=== PATIENT | female | born 1980 | race Caucasian/White ===

== ENCOUNTER 2020-04-22 16:31 | Outpatient (REF) | payer MEDICAID, SELFPAY ==
--- NOTE | 2020-04-22 15:20 | PAPFT_PTH ---
PATIENT: Mj Turner LOC: [facility] U#:[id number] AGE/SX: 39/F ROOM: RE04/22/[address]: Marline Fortune V : 1980 BED: DIS: 04/22/2020 SPEC #: [id number] RECD: 04/23/20 12:59 STATUS: HAMLET REAnne Marie #: [id number] CHRISTIANO: 04/22/20 15:[address]: Marline Fortune V DEPT: [facility] Cytology RECD BY: Chiquis Lemon Tissues: 1 - CX/ENDOCX FOR PAP SMEARS Procedures: PAP THIN PREP/UVM Screening HPV DNA PROBE Comments: [id number]
== END 2020-04-22 16:32 | disposition home or self-care (01) ==
LOC: NCHCN 16:31
PROVIDERS: PCP Family Medicine; Visit Provider Family Medicine
DX: Z12.4 Encounter for screening for malignant neoplasm of cervix (principal); Z11.51 Encounter for screening for human papillomavirus (HPV)
CPT/HCPCS: 88142; 87624

== ENCOUNTER 2020-08-03 11:28 | Outpatient (CLI) | payer MEDICAID, SELFPAY ==
--- NOTE | 2020-08-03 | DI.RAD_ITS ---
Exam(s) XR CERVICAL SPINE COMP 4-5V EXAM: XR CERVICAL SPINE COMP 4-5V CLINICAL HISTORY: NECK PAIN, M54.2. TECHNIQUE: 2D digital imaging was performed. COMPARISON: No exams were available for comparison FINDINGS: BONES: No fracture or destructive lesion. Vertebral bodies are unremarkable. There is no significant neural foraminal narrowing. DISKS: Intervertebral disc spaces are maintained. There are small endplate osteophytes projecting an teriorly at C5 through C7. There are mild facet joint degenerative changes. ALIGNMENT: Cervical spinal alignment is within normal limits. The odontoid and atlantoaxial articulat ions are normal. SOFT TISSUE: Normal. The lung apices are clear. IMPRESSION: Mild degenerative disc changes at C5-6 and C6-7. Mild facet degenerative changes. DATA REPOSITORY: RADIATION DOSE DELIVERED:
--- NOTE | 2020-08-03 | DI.RAD_ITS ---
Exam(s) XR THORACIC SPINE COMPLETE EXAM: XR THORACIC SPINE COMPLETE CLINICAL HISTORY: ACUTE BACK PAIN, M54.89. TECHNIQUE: 2D digital imaging was performed. COMPARISON: MR MRI - THORACIC SPINE WO CONT from 01/08/2015 MR MRI - THORACIC SPINE WO CONT from 01/08/2015 FINDINGS: BONES: There is no fracture or destructive lesion. The vertebral bodies and posterior elements are un remarkable. No visible scoliosis. DISKS:Alignment is within normal limits. Interverebral disc spaces are maintained. There are small an teriorly projecting endplate osteophytes. SOFT TISSUE: Visualized lungs are clear. The heart size is normal. IMPRESSION: Mild degenerative disc changes. DATA REPOSITORY: RADIATION DOSE DELIVERED:
== END 2020-08-03 11:48 ==
PROVIDERS: PCP Family Medicine; Visit Provider Family Medicine
DX: M54.6 Pain in thoracic spine (principal); M54.2 Cervicalgia; M50.322 Other cervical disc degeneration at C5-C6 level; M50.323 Other cervical disc degeneration at C6-C7 level; M51.34 Other intervertebral disc degeneration, thoracic region
CPT/HCPCS: 72050; 72072

== ENCOUNTER 2020-08-20 11:00 | Outpatient (CLI) | payer MEDICAID, SELFPAY ==
--- NOTE | 2020-08-20 | DI.RAD_ITS ---
Exam(s) XR FOOT LT COMPLETE EXAM: XR FOOT LT COMPLETE CLINICAL HISTORY: GREAT TOE PAIN, M79.676. TECHNIQUE: 2D digital imaging was performed. COMPARISON: No exams were available for comparison FINDINGS: BONES: No acute fracture is present. No bony destructive lesion is seen. JOINTS: No dislocation present. SOFT TISSUE: Normal. IMPRESSION: Unremarkable radiographs of the left foot. DATA REPOSITORY: RADIATION DOSE DELIVERED:
== END 2020-08-20 11:20 ==
PROVIDERS: PCP Family Medicine; Visit Provider Physician Assistant Medical
DX: M79.675 Pain in left toe(s) (principal); M79.672 Pain in left foot
CPT/HCPCS: 73630

== ENCOUNTER 2020-11-12 16:07 | Outpatient (REF) | payer MEDICAID, SELFPAY ==
[2020-11-12 20:58] LABS: Bilirubin Negative (Negative); Blood Small (Negative); Clarity Clear (Clear); Glucose Negative (Negative); Ketones Negative (Negative); Leukocyte Esterase Negative (Negative); Nitrite Negative (Negative); Specific Gravity 1.015 (1.005-1.025); Urobilinogen 0.2 EU/dL (Up TO 0.2)
[2020-11-12 21:10] LABS: Bacteria Negative HPF (Negative); C & S Indicated? No; Casts Negative LPF (Negative); Crystals Negative HPF (Negative); Epithelial Cells Few HPF (Negative); Mucus Negative (Negative)
[2020-11-12 21:24] LABS: Anion Gap 8.6 mmol/L (3-11); BUN 9 mg/dL (7-18); CO2 26.4 mmol/L (21.0-32.0); CREATININE 0.8 mg/dL (0.55-1.02); Calcium 9.2 mg/dL (8.5-10.1); Chloride 104 mmol/L (98-107); Glucose 80 mg/dL (74-106); Potassium 4.1 mmol/L (3.5-5.1); Sodium 139 mmol/L (136-145)
== END 2020-11-12 16:08 | disposition home or self-care (01) ==
LOC: NCHCN 16:07
PROVIDERS: PCP Family Medicine; Visit Provider Family Medicine
DX: R30.0 Dysuria (principal); R10.9 Unspecified abdominal pain
CPT/HCPCS: 80048; 81003; 81015

== ENCOUNTER 2020-11-29 14:14 | Outpatient (REF) | payer OTHER, MEDICAID, SELFPAY ==
[2020-11-29 20:50] LABS: Abs Immature Grans 0.02 10^3/uL (0.0-0.06); Absolute Basophil Count 0.08 10^3/uL (0.0-0.2); Absolute Eosinophil Count 0.26 10^3/uL (0.0-0.7); Absolute Monocyte Count 0.53 10^3/uL (0.1-0.8); Absolute Neutrophil Count 5.34 10^3/uL (1.2-6.7); Basophils % 0.9; Eosinophils % 2.9; HCT 40.9 % (36.0-46.0); HGB 13.5 g/dL (11.2-15.7); Immature Grans % 0.2; Lymphocytes % 29.4; Neutrophils % 60.6; Nucleated RBC 0 %; Platelet Count 288 10^3/uL (130-400); RBC 4.35 10^6/uL (3.93-5.22); RDW 12.8 % (11.7-14.6); RDW-SD 44.4 fL; WBC 8.83 10^3/uL (4.4-10.8)
[2020-11-29 21:17] LABS: Anion Gap 10.1 mmol/L (3-11); BUN 7 mg/dL (7-18); CO2 26.9 mmol/L (21.0-32.0); CREATININE 0.8 mg/dL (0.55-1.02); Calcium 8.8 mg/dL (8.5-10.1); Chloride 103 mmol/L (98-107); Glucose 74 mg/dL (74-106); Potassium 4.1 mmol/L (3.5-5.1); Sodium 140 mmol/L (136-145)
[2020-11-30 12:33] LABS: ALT 29 U/L (14-59); AST 15 U/L (15-37)
[2020-12-01 13:34] LABS: COVID-19 RT-PCR UVMMC Result Negative (Negative)
== END 2020-11-29 14:15 | disposition home or self-care (01) ==
LOC: NCHCN 14:14
PROVIDERS: PCP Family Medicine; Visit Provider Nurse Practitioner Family
DX: Z20.822 Contact with and (suspected) exposure to COVID-19 (principal); R05 Cough; R06.02 Shortness of breath
CPT/HCPCS: 80048; U0003; 84450; 84460; 85025

== ENCOUNTER → 2021-08-31 01:41 | Outpatient (CLI) | payer MEDICAID, SELFPAY ==
--- NOTE | 2021-08-31 | DI.US_ITS ---
Exam(s) US THYROID EXAM: US THYROID CLINICAL HISTORY: THYROID NODULE E04.1. TECHNIQUE: Ultrasound thyroid performed using standard protocol. COMPARISON: US THYROID ULTRASOUND from 10/18/2016 FINDINGS: Both thyroid lobes exhibit normal size as does the isthmus and there is homogeneous echotexture throu ghout the gland the exception of the previously described and again present nodule in the right lobe. RIGHT THYROID LOBE: Measures 1.6 cm AP x 2.4 cm wide x 4.8 cm craniocaudal Solitary nodule is as described below: Size: Measures 0.6 x 0.6 x 0.7 cm Composition: Solid-2 points Echogenicity: Hypoechoic compared to surrounding parenchyma-2 points Shape: Wider than taller-0 points Margin: Smooth- 0 points Echogenic Foci: None-0 points Total Points for this nodule: 4 ACR Ti-Rads Category: TR4. This nodule does not require biopsy as it is less than 1.5 cm size. There are no new nodules in the right lobe. ISTHMUS: Normal thickness. There are no nodules in the isthmus. LEFT THYROID LOBE: Measures 1.2 cm AP x 1.4 wide x 4.7 cm craniocaudal There are again no nodules in the left lobe. LYMPH NODES: There is no significant adenopathy. IMPRESSION: 1. Compared to the prior ultrasound examination of October 2016 there is again noted a solitary unchan ged nodule in the right lobe which remains TR4 classification and does not meet criteria for ultrasou nd-guided FNA as it measures less than 1.5 cm. 2. No new nodules in either lobe nor in the isthmus. 3. There is no significant lymphadenopathy. DATA REPOSITORY:
--- NOTE | 2021-08-31 | DI.MAMMO_ITS ---
Exam(s) MAMMO SCREENING EXAM: MAMMO SCREENING CLINICAL HISTORY: SCREENING FOR BREAST CANCER Z12.31. TECHNIQUE: Bilateral full field digital CC and MLO mammographic images were obtained with 3D tomosyn thesis and utilizing computer aided detection (CAD). COMPARISON: None. This is a baseline mammogram on this 41-year-old patient FINDINGS: There are no significant spiculated masses nor malignant appearing microcalcification groups. There is no significant architectural distortion nor skin thickening-retraction. IMPRESSION: No radiographic evidence of malignancy. BI-RADS Category 1 - Negative Breast Density - Category B - Scattered areas of fibroglandular density Breast density Category C or D implies that the patient has dense breast tissue. Dense breast tissue can make it harder to find cancer on a mammogram. Dense breast tissue is also associated with an incr eased risk of breast cancer. This information about the result of the mammogram report was provided to the patient to raise their awareness. Use this report when you speak with the patient about their risks for breast cancer, which includes their family history. At that time, you may recommend additional screening tests (Ultrasoun d or MRI) as these tests may add significant information. A negative radiographic report should not delay biopsy if a dominant or clinically suspicious mass is present. Up to ten percent of cancers are not identified on mammography. A negative report may reinforce clinical impression. Adenosis and dense breasts may obscure an underlying neoplasm. False positive reports average 6 to 10%. Patient will receive a letter notifying them of these results.
== END ==
PROVIDERS: PCP Family Medicine; Visit Provider Family Medicine
DX: E04.1 Nontoxic single thyroid nodule (principal); Z12.31 Encounter for screening mammogram for malignant neoplasm of breast; R91.8 Other nonspecific abnormal finding of lung field
CPT/HCPCS: 77063; 77067; 76536

== ENCOUNTER → 2021-09-27 01:56 | Outpatient (CLI) | payer MEDICAID, SELFPAY ==
--- NOTE | 2021-09-27 | DI.MRI_ITS ---
Exam(s) MR C SPINE T SPINE WO EXAM: MR C SPINE T SPINE WO CLINICAL HISTORY: PARESTHESIA OF ARM R20.2 T SPINE PAIN M54.6 TECHNIQUE: Multiplanar multisequence MRI of the cervical spine was performed without intravenous con trast. COMPARISON: MR MRI - CERVICAL SPINE WO CONT from 01/08/2015 MR MRI - THORACIC SPINE WO CONT from 01/08/2015 FINDINGS: MRI cervical spine: BONES: Vertebral body heights are maintained. Intervertebral disc spaces are normal. Alignment is nor mal. Bone marrow signal intensity is within normal limits. CERVICAL CORD: Craniovertebral junction is unremarkable. The cervical cord is normal size and signal intensity. SOFT TISSUES: Unremarkable. C2-3: No disc herniation or bulge is identified. No significant central spinal canal or neural forami nal stenosis. C3-4: No disc herniation or bulge is identified. No significant central spinal canal or neural forami nal stenosis C4-5: No disc herniation or bulge is identified. No significant central spinal canal or neural forami nal stenosis C5-6: There is a mild diffuse disc bulge. It is grossly unchanged compared to the prior examination. No significant central spinal canal or neural foraminal stenosis C6-7: No disc herniation or bulge is identified. No significant central spinal canal or neural forami nal stenosis C7-T1: No disc herniation or bulge is identified. No significant central spinal canal or neural yamilet inal stenosis MRI thoracic spine: BONES: Vertebral body heights are maintained. Intervertebral disc spaces are normal. Alignment is nor mal. Bone marrow signal intensity is within normal limits. Cord: The thoracic cord is normal size and signal intensity. No intrinsic cord lesion is present. Discs: No disc herniation or bulge is present in the thoracic spine. Soft tissues: Normal. IMPRESSION: 1. Stable small diffuse disc bulge at C5-C6. No central spinal canal or neural foraminal stenosis is seen in the cervical spine. 2. No central spinal canal or neural foraminal stenosis is seen in the thoracic spine. No focal disc herniation is seen in the thoracic spine. 3. Normal signal in the cervical and thoracic spinal cord. DATA REPOSITORY:
== END ==
PROVIDERS: PCP Family Medicine; Visit Provider Family Medicine
DX: M54.6 Pain in thoracic spine (principal); R20.2 Paresthesia of skin; M50.222 Other cervical disc displacement at C5-C6 level
CPT/HCPCS: 72141; 72146

== ENCOUNTER 2021-10-04 18:48 | Outpatient (REF) | payer MEDICAID, SELFPAY ==
[2021-10-04 15:39] LABS: ESR 21 mm/hr (0-20)
[2021-10-04 15:52] LABS: Hemoglobin A1C 5.3 % (<5.7)
[2021-10-04 16:07] LABS: C-Reactive Protein 0.48 mg/dL (0.0-0.3); TSH (W/Ref FT4) 1.64 uIU/mL (0.36-3.74)
[2021-10-04 16:50] LABS: Vitamin B12 657 pg/mL (193-986)
[2021-10-05 10:46] LABS: Lyme Ab w Rflx to Lyme Confirm Negative (Negative)
[2021-10-06 10:22] LABS: Anaplasma phagocytophilum Negative (Negative); B. miyamotoi PCR Negative (Negative); Babesia divergens/MO-1 Negative (Negative); Babesia duncani Negative (Negative); Babesia microti Negative (Negative); Ehrlichia chaffeensis Negative (Negative); Ehrlichia ewingii/canis Negative (Negative); Ehrlichia muris eauclairensis Negative (Negative)
== END 2021-10-04 18:49 | disposition home or self-care (01) ==
LOC: NCHCN 18:48
PROVIDERS: PCP Family Medicine; Visit Provider Family Medicine
DX: R53.83 Other fatigue (principal); R20.0 Anesthesia of skin
CPT/HCPCS: 85652; 87798; 82607; 83036; 84443; 86140; 86618

== ENCOUNTER → 2021-11-15 02:26 | Outpatient (CLI) | payer MEDICAID, SELFPAY ==
--- NOTE | 2021-11-15 | DI.RAD_ITS ---
Exam(s) XR LUMBAR SPINE COMPLETE EXAM: XR LUMBAR SPINE COMPLETE CLINICAL HISTORY: BACK PAIN, PSORIATIC ARHTIRITS TECHNIQUE: COMPARISON: No exams were available for comparison FINDINGS: Five views were obtained. The intervertebral disc spaces appear well maintained. There is no eviden ce of spondylolysis or spondylolisthesis. There are mild hypertrophic endplate and facet degenerativ e changes of the lower thoracic and lumbar spine, otherwise no bony abnormality seen. SI joints appe ar intact. IUD noted in the pelvic midline. IMPRESSION: Mild degenerative changes of the lumbar spine. No evidence of sacroiliitis by plain film criteria. RADIATION DOSE DELIVERED: Total DLP
--- NOTE | 2021-11-15 | DI.RAD_ITS ---
Exam(s) XR ARTHRITIS SERIES EXAM: XR ARTHRITIS SERIES CLINICAL HISTORY: PSORIATIC ARTHRITIS, L40.50 TECHNIQUE: COMPARISON: No exams were available for comparison FINDINGS: Two views of each hand were obtained. Cartilaginous joint spaces are well maintained. No gross soft tissue swelling. No bony abnormality seen. IMPRESSION: Normal views of both hands. RADIATION DOSE DELIVERED: Total DLP
== END ==
PROVIDERS: PCP Family Medicine; Visit Provider Family Medicine
DX: M47.816 Spondylosis without myelopathy or radiculopathy, lumbar region (principal)
CPT/HCPCS: 72110; 73120

== ENCOUNTER → 2021-12-05 02:48 | Outpatient (CLI) | payer MEDICAID, SELFPAY ==
--- NOTE | 2021-12-05 | DI.MRI_ITS ---
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 COMPARISON: No exams were available for comparison FINDINGS: No intracranial hemorrhage, mass or infarct is seen. There has been no change in the size or appeara nce of the previously noted pineal gland cyst. The ventricles are normal in size. There are no abnormal high signal lesions in the white matter. The vascular flow voids appear intact. The orbits and pituitary are unremarkable as visualized. The sinuses show minimal mucosal thickening. Small amount of mucus in the posterior left sphenoid si nus. The mastoid air cells are clear. IMPRESSION: Stable appearance of pineal gland cyst. DATA REPOSITORY:
== END ==
PROVIDERS: PCP Family Medicine; Visit Provider Family Medicine
DX: G93.0 Cerebral cysts (principal); G43.909 Migraine, unspecified, not intractable, without status migrainosus
CPT/HCPCS: 70551

== ENCOUNTER 2022-05-05 13:37 | Outpatient (REF) | payer MEDICAID, SELFPAY ==
--- NOTE | 2022-05-05 09:30 | SKI_PTH ---
PATIENT: Mj Turner LOC: [facility] U#:[id number] AGE/SX: 41/F ROOM: RE05/05/[address]: Marline Fortune V : 1980 BED: DIS: 05/05/2022 SPEC #: [id number] RECD: 05/05/22 15:02 STATUS: HAMLET REAnne Marie #: [id number] CHRISTIANO: 05/05/22 09:[address]: Marline Fortune V DEPT: Surgical Specimen RECD BY: Chiquis Lemon Tissues: 1 - SKIN BIOPSY(SHAVE/PUNCH) Procedures: SKIN LEVEL 4 SPECIAL STAIN 1 Comments: [id number]
== END 2022-05-05 13:38 | disposition home or self-care (01) ==
LOC: NCHCN 13:37
PROVIDERS: PCP Family Medicine; Visit Provider Family Medicine
DX: L57.0 Actinic keratosis (principal); L85.9 Epidermal thickening, unspecified
CPT/HCPCS: 88305; 88312

== ENCOUNTER 2022-11-23 18:48 | Outpatient (REF) | payer MEDICAID, SELFPAY | END 2022-11-23 18:49 | disposition home or self-care (01) | LOC: NCHCN 18:48 | PROVIDERS: PCP Family Medicine; Visit Provider Family Medicine | DX: J02.9 Acute pharyngitis, unspecified (principal) | CPT/HCPCS: 87070 ==

== ENCOUNTER → 2023-09-03 05:21 | Outpatient (CLI) | payer MEDICAID, SELFPAY ==
--- NOTE | 2023-09-03 | DI.MAMMO_ITS ---
Exam(s) MAMMO SCREENING EXAM: MAMMO SCREENING CLINICAL HISTORY: SCREENING, Z12.31 TECHNIQUE: Mammograms were interpreted according to the usual protocol including computer analysis w [employer] CAD system, tomosynthesis and C-view imaging. COMPARISON: 2021 FINDINGS: The breasts are composed of scattered fibroglandular densities, Breast Density category B. No suspicious masses or suspicious microcalcifications are seen. No skin thickening or abnormal axillary lymph nodes are seen. There has been no significant change from prior exams. IMPRESSION: BI-RADS Category 1, Negative mammogram Yearly screening mammography is recommended. Breast Density - Category B, scattered fibroglandular densities. A negative radiographic report should not delay biopsy if a dominant or clinically suspicious mass is present. Up to ten percent of cancers are not identified on mammography. A negative report may reinforce clinical impression. Adenosis and dense breasts may obscure an underlying neoplasm. False positive reports average 6 to 10%. Patient will receive a letter notifying them of these results.
== END ==
PROVIDERS: PCP Family Medicine; Visit Provider Family Medicine
DX: Z12.31 Encounter for screening mammogram for malignant neoplasm of breast (principal)
CPT/HCPCS: 77063; 77067

== ENCOUNTER 2024-01-10 15:11 | Outpatient (REF) | payer MEDICAID, SELFPAY ==
--- NOTE | 2024-01-10 14:15 | PAPFT_PTH ---
PATIENT: Mj Turner LOC: [facility] U#:[id number] AGE/SX: 43/F ROOM: RE01/10/[address]: Marline Fortune V : 1980 BED: DIS: 01/10/2024 SPEC #: [id number] RECD: 01/10/24 18:51 STATUS: HAMLET REQ #: [id number] CHRISTIANO: 01/10/24 14:[address]: Marline Fortune V DEPT: [facility] Cytology RECD BY: Chiquis Lemon Tissues: 1 - CX/ENDOCX FOR PAP SMEARS Procedures: PAP THIN PREP/UVM Screening HPV DNA PROBE Comments: [id number] (HPV 16 & 18/45)
--- OUTSIDE RECORDS SUMMARY | 2024-01-10 15:14 | XMS_ITS | Data Portability ---
Author Organization [facility], [facility] Address [place] [address] Care Team Providers Care Systems Trainer Name Role Phone JOVAN BINGHAM Dentist PARMJIT CHAMBERS Primary Care Provider [phone] RO RAMIREZ [employer] Stonecut[employer] REINALDO BARROSO Neurologist Assessment No assessment recorded. Plan of Treatment Reminders Order Date Submit Date Provider Last Modified By Organization Details Last Modified Time Details Appointments Procedure 30 2023 01:40P M PARMJIT CHAMBERS Not available Not available Not available Annual Wellness Exam 40 2024 02:20P M PARMJIT CHAMBERS Not available Not available Not available Lab hemoglobi n (Hb), fingersti ck, blood 2023 024 [email or web address], [address] [place] [address], [phone], 03/27/2023 16:40:56 influenza virus A + B + SARS-CoV- 2 (COVID19) Ag panel, rapid IA, upper respirato ry specimen 2023 024 [email or web address] [facility], [address] [place] [address], [phone], 11/07/2023 13:54:19 Referral None recorded. Procedures None recorded. Surgeries None recorded. Imaging MAMMO, screening , bilateral 2023 024 [email or web address] [facility], [address], [place], [address], 09/17/2023 13:27:38 Medication Orders amoxicill in 500 mg capsule 2023 024 [email or web address] [facility], [address] [place] [address], [address], 06/15/2023 13:31:49 doxycycli ne hyclate 100 mg capsule 2023 024 [email or web address] [facility], [address] [place] [address], [address], 01/10/2024 13:42:29 ketorolac 60 mg/2 mL intramusc ular solution 2023 024 Not available 11/07/2023 13:30:33 prednison e 10 mg tablet 2023 024 [facility], [address] [place] [address], [address], 10/24/2023 15:36:31 omeprazol e 20 mg capsule,d elayed release 2023 024 [facility], [address] [place] [address], [address], 06/15/2023 17:07:03 methocarb simeon 750 mg tablet 2023 024 [email or web address] [facility], [address] [place] [address], [address], 10/24/2023 17:07:46 ketorolac 60 mg/2 mL intramusc ular solution 2023 024 [email or web address] Not available 11/07/2023 13:30:33 amoxicill in 500 mg tablet 2023 024 [facility], [address] [place] [address], [address], 01/10/2024 13:42:05 azithromy sada 250 mg tablet 2023 024 [facility], [address] [place], [address], 01/10/2024 13:42:09 prednison e 20 mg tablet 2023 024 [facility], [address] [place], [address], 01/10/2024 13:42:44 Patient TargetsNo targets recorded. Patient InstructionsNo instructions recorded. Reason for Referral None Reported. Results Created Date Observation Date Name Description Value Unit Range Abnormal Flag Note LastModifiedBy Organization Detail LastModifiedTime 03/27/19 24 03/27/2023 hemog lobin (Hb), finge rstic k, blood HGB 13.4 g/dL Not Available [address], [address], 03/27/2023 12:06:52 11/07/19 24 11/07/2023 influ ayan virus A + B + SARS- CoV-2 (COVI D19) Ag panel , rapid IA, upper respi rator y speci men Influenza A negati ve Not Available [address], [address], 11/07/2023 13:53:56 11/07/19 24 11/07/2023 influ ayan virus A + B + SARS- CoV-2 (COVI D19) Ag panel , rapid IA, upper respi rator y speci men Influenza B negati ve Not Available [address], [address], 11/07/2023 13:53:56 11/07/19 24 11/07/2023 influ ayan virus A + B + SARS- CoV-2 (COVI D19) Ag panel , rapid IA, upper respi rator y speci men SARS-COV-2 negati ve Not Available [facility] [address] [facility], [place], [address], 11/07/2023 13:53:56 09/03/19 24 09/03/2023 MAMMO , scree jose, bilat eral Patien t Name: Mj Turner Unit #: [id number] Loc: DI Orderi ng Provid er: Anju Mclaughlin M.D. Accoun t #: [id number] Status : REG CLI Primar y Care Provid er: Anju Mclaughlin M.D. Date of Exam : Sex: F Admiss ion Date: : 1980 Age: 43 Exam(s ) MG MAMMO SCREEN ING EXAM: MG MAMMO SCREEN ING CLINIC AL HISTOR Y: SCREEN ING, Z12.31 TECHNI QUE: Mammog massimo were interp reted accord ing to the usual protoc ol includ ing comput er analys is with CAD system , tomosy nthesi s and C-view imagin g. COMPAR KARLI: 2021 FINDIN GS: The breast s are compos ed of scatte red fibrog landul ar densit ies, Breast Densit y catego ry B. No suspic ious masses or suspic ious microc alcifi cation s are seen. No skin thicke jose or abnorm al axilla ry lymph nodes are seen. There has been no signif icant change from prior exams. IMPRES FATIMAH: BI-RAD S Catego ry 1, Negati ve mammog ricky Yearly screen ing mammog herrera is recomm ended. Breast Densit y - Catego ry B, scatte red fibrog landul ar densit ies. A negati ve radiog raphic report should not delay biopsy if a domina nt or clinic ally suspic ious mass is presen t. Up to ten percen t of cancer s are not identi fied on mammog herrera. A negati ve report may reinfo rce clinic al impres fatimah. Adenos is and dense breast s may obscur e an underl veronica neopla sm. False positi ve report s averag e 6 to 10%. Patien t will receiv e a letter notify ing them of these result peter brenstein By: Anju Mclaughlin M.D. CC: ------ ------ ------ ------ ------ ------ ------ ------ ------ ------ ------ ------ - Dictat ed By: Adam Vergara 1554 155 Transc ribed By: Seb Warren 155 This is privil eged, confid ential inform ation intend ed only for the provid er named. Any use or distri bution by any person other than this provid er is strict ly prohib ited. If you receiv e this report in error, please notify us immvibhai edyta at and return the origin al report to us at the addres s above. Thank- you. [email or web address] [facility] [address], [place], [address] 11/01/2023 15:39:09 12/03/19 24 11/15/2021 imagi ng/di agnos tic resul t No observ ation record ed. Not Available 12/02 09:30:43 12/03/19 24 09/27/2021 imagi ng/di agnos tic resul t No observ ation record ed. Not Available 12/02 09:30:44 12/03/19 24 08/31/2021 US, thyro id No observ ation record ed. Not Available 12/02 09:30:47 12/03/19 24 08/20/2020 XR, foot No observ ation record ed. Not Available 12/02 09:30:49 12/03/19 24 08/03/2020 XR, cervi omar spine No observ ation record ed. Not Available 12/02 09:30:50 12/03/19 24 08/03/2020 imagi ng/di agnos tic resul t No observ ation record ed. Not Available 12/02 09:30:51 12/03/19 24 05/02/2019 imagi ng/di agnos tic resul t No observ ation record ed. Not Available 12/02 09:30:53 12/03/19 24 05/02/2019 imagi ng/di agnos tic resul t No observ ation record ed. Not Available 12/02 09:30:54 12/03/19 24 08/31/2021 MAMMO , scree jose No observ ation record ed. Not Available 12/02 09:31:08 12/03/19 24 11/15/2021 XR, lumba r spine No observ ation record ed. Not Available 12/02 09:31:10 12/03/19 24 12/05/2021 MRI, brain + brain stem No observ ation record ed. Not Available 12/02 09:31:12 Result Notes Documentation Provider Name and Address Organization Details Recorded Time Mammo, Screening, Bilateral : Patient Name: Mj Turner Unit #: [id number] Loc: DI Ordering Provider: Parmjit Chambers M.D. Account #: [id number] Status: REG [facility] Primary Care Provider: Parmjit Chambers M.D. Date of Exam : 09/03/23 Sex: F Admission Date: 09/03/23 : 1980 Age: 43 Exam(s) MG MAMMO SCREENING EXAM: MG MAMMO SCREENING CLINICAL HISTORY: SCREENING, Z12.31 TECHNIQUE: Mammograms were interpreted according to the usual protocol including computer analysis with CAD system, tomosynthesis and C-view imaging. COMPARISON: 2021 FINDINGS: The breasts are composed of scattered fibroglandular densities, Breast Density category B. No suspicious masses or suspicious microcalcifications are seen. No skin thickening or abnormal axillary lymph nodes are seen. There has been no significant change from prior exams. IMPRESSION: BI-RADS Category 1, Negative mammogram Yearly screening mammography is recommended. Breast Density - Category B, scattered fibroglandular densities. A negative radiographic report should not delay biopsy if a dominant or clinically suspicious mass is present. Up to ten percent of cancers are not identified on mammography. A negative report may reinforce clinical impression. Adenosis and dense breasts may obscure an underlying neoplasm. False positive reports average 6 to 10%. Patient will receive a letter notifying them of these results. Ordered By: Parmjit Chambers M.D. CC: Dictated By: Nicki Warren M.D. 09/03/23 1554 09/03/23 1554 Transcribed By: Nicki Warren 09/03/23 1554 This is privileged, confidential information intended only for the provider named. Any use or distribution by any person other than this provider is strictly prohibited. If you receive this report in error, please notify us immediately at [phone] and return the original report to us at the address above. Thank-you. RAMON FORD [place], [place] - [facility] 11/01/2023 15:39:09 Problems Name Problem SNOMED Code Status Onset Date Resolution Date Notes Provider Name and Address Organization Details Recorded Time Human papillom a virus infectio n 877897533 Active 2008 Problem Code: B97.7; Problem Code Type: ICD-10; Not Available [facility] 3 04:42:38 Mild intermit tent asthma 141601476 Active 200404/29/19 22 - Comments only - Parmjit Chambers MD - Rare use of albutero l inhaler. Main issue is she needs to quit smoking, she not feeling ready to do that just yet Problem Code: J45.20; Problem Code Type: ICD-10; Not Available [facility] 3 04:42:38 Cholelit hiasis without obstruct ion 72810633 Active 2001 Problem Code: K80.20; Problem Code Type: ICD-10; Not Available [facility] 3 04:42:38 Cerebral cyst 07085854 Active 201404/29/19 22 - Comments only - Parmjit Chambers MD - We will consider repeat MRI for evaluati on to make sure this is not progress ing. Problem Code: G93.0; Problem Code Type: ICD-10; Not Available [facility] 3 04:42:38 Headache 85965787 Active 201411/12/19 22 - Comments only - Parmjit Chambers MD - Intermit tent, she splinted manage these reasonab ly well, using IV Imitrex for migraine or muscle relaxant for cervical kanwal related headache s. The cycloben zaprine can be sedating and she is wonderin g if there is another option. I did a prescrip tion for methocar bamol today. Problem Code: R51; Problem Code Type: ICD-10; Not Available [facility] 3 04:42:38 Concussi on with no loss of consciou sness 59149380 Active 201401/30/20 22 - Comments only - Parmjit Chambers MD - /TBI. This occurred in 2014. Since then she has had difficul ty with light sensitiv ity, headache s, suboptim al memory/w ord finding difficul ty, computat ional adroitne ss. 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 I think it is reasonab le to have her get accommod ation such that she can take a longer period of time to complete assignme nts, get the addition al help she needs with the college courses. Problem Code: S06.0x0S ; Problem Code Type: ICD-10; Not Available [facility] 3 04:42:39 Contrace ption care manageme nt Active 201410/23/19 18 - Comments only - Parmjit Chambers MD - not particul arily happy with the mirena. She will think about options (which she is aware of) and let me know if she would like a change Problem Code: Z30.9; Problem Code Type: ICD-10; Not Available [facility] 3 04:42:39 Non-toxi c uninodul ar goiter 147528550 Active 201410/21/19 17 - Comments only - Parmjit Chambers MD - due for a repeat u/s to check on stabilit y Problem Code: E04.1; Problem Code Type: ICD-10; Not Available [facility] 3 04:42:39 Posttrau matic stress disorder 02729120 Active 201510/21/19 17 - Comments only - Parmjit Chambers MD - continui ng to work with behavior al health and they both feel she is making slow progress Problem Code: F43.10; Problem Code Type: ICD-10; Not Available [facility] 3 04:42:39 Adult health examinat ion Active 201504/29/19 22 - Comments only - Parmjit Chambers MD - Up-to-da te with Pap. Not interest ed in Covid vaccinat ion nor flu vaccinat ion. Up-to-da te with TD, hep C screenin g. Encourag e smoking cessatio n. She feels she is eating fairly healthfu lly, will try and remain physical ly active. Problem Code: Z00.00; Problem Code Type: ICD-10; Not Available [facility] 3 04:42:39 Acne vulgaris 58050633 Active 201511/12/19 22 - Comments only - Parmjit Chambers MD - She did get a prescrip tion for spironol actone from dermatol ogy, I think she can hold off on filling it for now. If she does want to fill it she may call me to start at a lower dose, I will start her at 12.5 mg daily. 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 Problem Code: F06.31; Problem Code Type: ICD-10; Not Available [facility] 3 04:42:39 Enthesop athy 68150689 Completed 201709/24/2017 Problem Code: M77.9; Problem Code Type: ICD-10; Not Available [facility] 3 04:42:39 Tobacco use cessatio n educatio n Active 201705/10/19 23 - Comments only - Parmjit Chambers MD - When her stress level decrease s/brain, she might be more apt to work on quitting Problem Code: Z71.6; Problem Code Type: ICD-10; Not Available [facility] 3 04:42:40 Syncope and collapse 856330520 Active 2019 Problem Code: R55; Problem Code Type: ICD-10; Not Available [facility] 3 04:42:40 Neck pain 17480327 Active 201904/29/19 22 - Comments only - Parmjit Chambers MD - Ongoing issue related to work. Having her head looking down at the all the paperwor k she needs to get done, at the computer screen for hours on end does not help. She has a stem at home that is working fairly well and I wrote for her to be able to continue working from home as needed. Will await recommen dations from the pain clinic. Problem Code: M54.2; Problem Code Type: ICD-10; Not Available [facility] 3 04:42:40 Migraine 78923902 Active 202104/29/19 22 - Comments only - Parmjit Chambers MD - , Intermit tent. For the most part she continue s to feel that use of the Imitrex and ibuprofe n works fairly well. Problem Code: G43.909; Problem Code Type: ICD-10; Not Available [facility] 3 04:42:40 History of SARS-CoV -2 88108082985 3455753 Active 202104/29/19 22 - Comments only - Parmjit Chambers MD - Symptoma tically resolved . Problem Code: Z86.16; Problem Code Type: ICD-10; Not Available [facility] 3 04:42:40 Screenjun petersen mammogra eva Active 2021 Problem Code: Z12.31; Problem Code Type: ICD-10; Not Available [facility] 3 04:42:40 Cristhian alessandra 44194164 Active 202101/30/20 22 - Comments only - Parmjit Chamebrs MD - /4th and 5th digits/c hronic cervical kanwal. Rheumato herman thinks she may have cubital tunnel syndrome . They had set up for her to have EMG/nerv e conducti on studies done. However Mj feels she has been getting good improvem ent in symptoms with working with PT, cervical manipula tion/lanre agee. Cristhian aparicios are improvin g. She is going to hold off on the studies for now. If she does do excessiv e typing/h aving to keep her head in the position to look at the screen that will worsen symptoms . She is trying to make sure she takes frequent breaks when working on her college courses. . Problem Code: R20.2; Problem Code Type: ICD-10; Not Available [facility] 3 04:42:40 Pain in thoracic spine 281756485 Active 2021 Problem Code: M54.6; Problem Code Type: ICD-10; Not Available [facility] 3 04:42:41 Anesthes ia of skin 021144455 Active 2021 Problem Code: R20.0; Problem Code Type: ICD-10; Not Available [facility] 3 04:42:41 Fatigue 19861327 Active 202111/12/19 22 - Comments only - Parmjit Chambers MD - , Mild, long standing . Whether this is due to the chronic conditio n such as psoriati c arthriti s, related to stress is difficul t to say right now. Very mildly elevated inflamma tory markers historic ally, normal CBC, CMP, thyroid studies, B12. We will continue to monitor for now. Problem Code: R53.83; Problem Code Type: ICD-10; Not Available [facility] 3 04:42:41 Lesion of ulnar nerve 016657852 Active 2021 Problem Code: G56.20; Problem Code Type: ICD-10; Not Available [facility] 3 04:42:41 History of traumati c brain injury 05072925153 100 Active 202105/10/19 23 - Comments only - Parmjit Chambers MD - /History of recurren t headache s/cervic algia. She needs to pace herself with activiti es, with time spent on the computer . Accommod ations for her for college courses are appropri ate to give her addition al time if she needs to to complete assignme nts. Her focusing sometime s can be off related to the history of the TBI. Problem Code: Z87.820; Problem Code Type: ICD-10; Not Available [facility] 3 04:42:41 Cervical radiculo greg 55157101 Active 202209/12/19 23 - Comments only - Parmjit Chambers MD - , With fluctuat ions in intensit y. Overall she is managing it fairly well with the as needed use of methocar bamol, the soft c-collar . Doing some exercise s. Problem Code: M54.12; Problem Code Type: ICD-10; Not Available [facility] 3 04:42:41 Adjustme nt disorder 30749409 Active 202209/12/19 23 - Comments only - Parmjit Chambers MD - Supporti ve listenin g, she is thinking of getting plugged into counseli ng for herself. Her son is involved in counseli ng. Problem Code: F43.20; Problem Code Type: ICD-10; Not Available [facility] 3 04:42:41 Acute upper respirat ory infectio n 84745166 Active 2022 Problem Code: J06.9; Problem Code Type: ICD-10; Not Available [facility] 3 04:42:42 Lichen simplex chronicu s 94975344 Active 2022 Problem Code: L28.0; Problem Code Type: ICD-10; Not Available [facility] 3 04:42:42 Acute sinusiti s 72159150 Completed 202009/11/2022 Problem Code: J01.90; Problem Code Type: ICD-10; Not Available [facility] 3 04:42:42 Pain in toe 078189850 Completed 202004/29/2021 Problem Code: M79.676; Problem Code Type: ICD-10; Not Available [facility] 3 04:42:42 Fever 672112008 Completed 201906/01/2019 Problem Code: R50.9; Problem Code Type: ICD-10; Not Available [facility] 3 04:42:42 Chronic sinusiti s 79308202 Completed 201606/01/2019 Problem Code: J32.9; Problem Code Type: ICD-10; Not Available [facility] 3 04:42:42 Asthma 043000033 Completed 200412/13/2022 Not Available [facility] 3 04:42:43 Pain of left knee joint 47300271852 4107 Completed 201909/11/2022 Problem Code: M25.562; Problem Code Type: ICD-10; Not Available [facility] 3 04:42:43 Biliary calculus 437000574 Completed Not Available [facility] 3 04:42:43 Biceps tendinit is 719102741 Completed 201509/11/2022 Problem Code: M75.21; Problem Code Type: ICD-10; Not Available [facility] 3 04:42:43 Pain in thoracic spine 246049238 Completed 201909/11/2022 Problem Code: M54.89; Problem Code Type: ICD-10; Not Available [facility] 3 04:42:43 Psoriasi s 6315179 Completed 202109/11/2022 Problem Code: L40.9; Problem Code Type: ICD-10; Not Available [facility] 3 04:42:43 Candidia sis 52251220 Completed 201406/01/2019 Problem Code: B37.9; Problem Code Type: ICD-10; Not Available [facility] 3 04:42:44 Dysuria 72288182 Completed 202004/29/2021 Problem Code: R30.0; Problem Code Type: ICD-10; Not Available [facility] 3 04:42:44 Abdomina l pain 50154903 Completed 202004/29/2021 Problem Code: R10.9; Problem Code Type: ICD-10; Not Available [facility] 3 04:42:44 Nasal congesti on 05218875 Completed 202104/29/2021 Problem Code: R09.81; Problem Code Type: ICD-10; Not Available [facility] 3 04:42:44 Exposure to communic able disease Completed 202004/29/2021 Problem Code: Z20.828; Problem Code Type: ICD-10; Not Available [facility] 3 04:42:44 Pain of left wrist 44328942123 9102 Completed 201806/01/2019 Problem Code: M25.532; Problem Code Type: ICD-10; Not Available [facility] 3 04:42:45 Adjustme nt disorder with depresse d mood 93880697 Completed 201506/01/2019 Problem Code: F43.21; Problem Code Type: ICD-10; Not Available [facility] 3 04:42:45 Venereal disease screenin g Completed 201609/11/2022 Problem Code: Z11.3; Problem Code Type: ICD-10; Not Available [facility] 3 04:42:45 Acute stress disorder 80194619 Completed 201506/01/2019 Problem Code: F43.0; Problem Code Type: ICD-10; Not Available [facility] 3 04:42:45 Uncompli cated asthma 736495996 Completed 200412/13/2022 Problem Code: J45.909; Problem Code Type: ICD-10; Not Available [facility] 3 04:42:45 Psoriati c neeturimaris s 093769190 Completed 202109/11/2022 Problem Code: L40.50; Problem Code Type: ICD-10; Not Available [facility] 3 04:42:46 Cellulit is 705185835 Completed 202004/29/2021 Problem Code: L03.90; Problem Code Type: ICD-10; Not Available [facility] 3 04:42:46 Cough 64317875 Completed 202004/29/2021 Problem Code: R05; Problem Code Type: ICD-10; Not Available [facility] 3 04:42:46 Dyspnea 441466863 Completed 202004/29/2021 Problem Code: R06.02; Problem Code Type: ICD-10; Not Available [facility] 3 04:42:46 Acute pharyngi tis 660514976 Completed 202212/14/2022 Problem Code: J02.9; Problem Code Type: ICD-10; Not Available [facility] 4 05:34:14 Pain in elbow 04071319 Active [address], [place], [address] , [facility] 4 08:03:49 Spasm 15359875 Active [address], [facility] [address] , [facility] 4 17:04:08 Notes:*Problem Name: Positiv e Hpv *ICD-10 Codes: *Problem Status: inactive *Comments: *Note Date: 11/16/2008 Problem Notes None recorded. Procedures Surgical History None recorded. Imaging Results Imaging Date Name Status LastModified by Organiz ation Details LastModified Time 09/03/2023 MAMMO, screening, bilateral completed [email or web address] [facility] [address] , [place], [address] 11/01/2023 15:39:09 11/15/2021 imaging/diagno stic result completed Information not available 12/03/2023 09:30:43 09/27/2021 imaging/diagno stic result completed Information not available 12/03/2023 09:30:44 08/31/2021 US, thyroid completed Information n ot available 12/03/2023 09:30:47 08/20/2020 XR, foot completed Information no t available 12/03/2023 09:30:49 08/03/2020 XR, cervical spine completed Information not available 12/03/2023 09:30:50 08/03/2020 imaging/diagno stic result completed Information not available 12/03/2023 09:30:51 05/02/2019 imaging/diagno stic result completed Information not available 12/03/2023 09:30:53 05/02/2019 imaging/diagno stic result completed Information not available 12/03/2023 09:30:54 08/31/2021 MAMMO, screening completed Information not available 12/03/2023 09:31:08 11/15/2021 XR, lumbar spine completed Information not available 12/03/2023 09:31:10 12/05/2021 MRI, brain + brain stem completed Information not available 12/03/2023 09:31:12 Procedure Notes None recorded. Medical Equipment None Reported. Allergies Allergen ID Allergen Name Allergen Category Reaction Reaction Severity Criticality Documentation Date Start Date Code Code System Note Provider Name and Address Organization Details Recorded Time 40898 acetamino phen / oxycodone medicatio n Not available Not available Not available 01/26/20232020 97438 3 RxNorm Aller gyCod e: '7224 94946 12'; Aller gyNam e: 'PERC OCET' ; Aller gyCon ceptT ype: 'NDC' ; Not Available [facility] 16:26:21 06573 Chantix medicatio n other severe Not available 01/26/20232011 94137 0 RxNorm went crazy Aller gyRea ction : 'went crazy '; Aller gyCod e: '5009 89474 00'; Aller gyNam e: 'ROJAS TIX'; Aller gyCon ceptT ype: 'NDC' ; Not Available [facility] 3 16:26:21 88877 Latex Exam Gloves medicatio n rash moderate Not available 01/26/20232014 rash Aller gyCod e: '08 86464 60'; Aller gyNam e: 'LATE X EXAM GLOVE S'; Aller gyCon ceptT ype: 'NDC' ; Not Available [facility] 3 16:26:21 56105 copper environme nt,medica tion rash moderate Not available 01/26/20232016 2837 RxNorm rash Aller gyCod e: '1117 310'; Aller gyNam e: 'DARY ER'; Aller gyCon ceptT ype: 'RX Norm' ; Not Available [facility] 3 16:26:22 Medications Name Sig Start Date Stop Date Status Note LastModified by Organization Details LastModified Time cyclobenz aprine 10 mg tablet 1 tablet by mouth twice a day as needed 12/08 completed Not Available Not Available Not Available amoxicill in 500 mg capsule TAKE ONE CAPSULE BY MOUTH THREE TIMES A DAY FOR 7 DAYS 06/14 completed Not Available Not Available Not Available Mirena 21 mcg/24 hr (up to 8 years) 52 mg intrauter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
--- OUTSIDE RECORDS SUMMARY | 2024-01-10 15:14 | XMS_ITS | Continuity of Care Document ---
Author Organization [facility] Address [address] [place] [address] Care Team Providers Care Roving Sizer Name Role Phone JOVAN BINGHAM Dentist PARMJIT CHAMBERS Primary Care Provider [phone] RO RAMIREZ Improvement Nurse IDA GOOD Box Folding Machine Operator REINALDO BARROSO Neurologist Assessment No assessment recorded. Plan of Treatment Reminders Order Date Submit Date Provider Last Modified By Organization Details Last Modified Time Details Appointments Procedure 30 2023 01:40P M PARMJIT CHAMBERS Not available Not available Not available Annual Wellness Exam 40 2024 02:20P M PARMJIT CHAMBERS Not available Not available Not available Lab influenza virus A + B + SARS-CoV- 2 (COVID19) Ag panel, rapid IA, upper respirato ry specimen 2023 024 [email or web address] [facility], [address] [place], [address], 11/07/2023 13:54:19 Referral None recorded. Procedures None recorded. Surgeries None recorded. Imaging None recorded. Medication Orders amoxicill in 500 mg tablet 2023 024 [facility], [address] [place], [address], 01/10/2024 13:42:05 azithromy sada 250 mg tablet 2023 024 [facility], [address] [place], [address], 01/10/2024 13:42:09 prednison e 20 mg tablet 2023 024 [facility], [address] [place], [address], 01/10/2024 13:42:44 Patient TargetsNo targets recorded. Patient InstructionsNo instructions recorded. Reason for Referral None Reported. Results Created Date Observation Date Name Description Value Unit Range Abnormal Flag Note LastModifiedBy Organization Detail LastModifiedTime 11/07/1911/07/2023 influ ayan virus A + B + SARS- CoV-2 (COVI D19) Ag panel , rapid IA, upper respi rator y speci men Influenza A negati ve Not Available [address], [address], 11/07/2023 13:53:56 11/07/19 24 11/07/2023 influ ayan virus A + B + SARS- CoV-2 (COVI D19) Ag panel , rapid IA, upper respi rator y speci men Influenza B negati ve Not Available [address], [address], 11/07/2023 13:53:56 11/07/19 24 11/07/2023 influ ayan virus A + B + SARS- CoV-2 (COVI D19) Ag panel , rapid IA, upper respi rator y speci men SARS-COV-2 negati ve Not Available [address], [address], 11/07/2023 13:53:56 12/03/19 24 11/15/2021 imagi ng/di agnos tic resul t No observ ation record ed. Not Available 12/02 09:30:43 12/03/1909/27/2021 imagi ng/di agnos tic resul t No [...] ed. Not Available 12/02 09:31:12 Result Notes None recorded. Problems Name Problem SNOMED Code Status Onset Date Resolution Date Notes Provider Name and Address Organization Details Recorded Time Human papillom a virus infectio n 347605713 Active 2008 Problem Code: B97.7; Problem Code Type: ICD-10; Not Available [facility] 3 04:42:38 Mild intermit tent asthma 070520936 Active 200404/29/19 22 - Comments only - Parmjit Chambers MD - Rare use of albutero l inhaler. Main issue is she needs to quit smoking, she not feeling ready to do that just yet Problem Code: J45.20; Problem Code Type: ICD-10; Not Available [facility] 3 04:42:38 Cholelit hiasis without obstruct ion 28804491 Active 2001 Problem Code: K80.20; Problem Code Type: ICD-10; Not Available [facility] 3 04:42:38 Cerebral cyst 70371425 Active 201404/29/19 22 - Comments only - Parmjit Chambers MD - We will consider repeat MRI for evaluati on to make sure this is not progress ing. Problem Code: G93.0; Problem Code Type: ICD-10; Not Available [facility] 3 04:42:38 Headache 07619921 Active 201411/12/19 22 - Comments only - [...] R51; Problem Code Type: ICD-10; Not Available [facility] 3 04:42:38 Concussi on with no loss of consciou sness 15120738 Active 201401/30/20 22 - Comments only - [...] ; Problem Code Type: ICD-10; Not Available [facility] 3 04:42:39 Contrace ption care manageme nt Active 201410/23/19 18 - Comments only - Parmjit Chambers MD - not particul arily happy with the mirena. She will think about options (which she is aware of) and let me know if she would like a change Problem Code: Z30.9; Problem Code Type: ICD-10; Not Available [facility] 3 04:42:39 Non-toxi c uninodul ar goiter 001609780 Active 201410/21/19 17 - Comments only - Parmjit Chambers MD - due for a repeat u/s to check on stabilit y Problem Code: E04.1; Problem Code Type: ICD-10; Not Available [facility] 3 04:42:39 Posttrau matic stress disorder 60154960 Active 201510/21/19 17 - Comments only - Parmjit Chambers MD - continui ng to work with behavior al health and they both feel she is making slow progress Problem Code: F43.10; Problem Code Type: ICD-10; Not Available [facility] 3 04:42:39 Adult health examinat ion [...] Z00.00; Problem Code Type: ICD-10; Not Available [facility] 3 04:42:39 Acne vulgaris 89918401 Active 201511/12/19 22 - Comments only - [...] L70.0; Problem Code Type: ICD-10; Not Available [facility] 3 04:42:39 Pain of left shoulder joint 50560967900 235333 Active 2015 Problem Code: M25.512; Problem Code Type: ICD-10; Not Available [facility] 3 04:42:39 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 Problem Code: F06.31; Problem Code Type: ICD-10; Not Available [facility] 3 04:42:39 Enthesop athy 86553583 Completed 201709/24/2017 Problem Code: M77.9; Problem Code Type: ICD-10; Not Available [facility] 3 04:42:39 Tobacco use cessatio n educatio n Active 201705/10/19 23 - Comments only - Parmjit Chambers MD - When her stress level decrease s/brain, she might be more apt to work on quitting Problem Code: Z71.6; Problem Code Type: ICD-10; Not Available [facility] 3 04:42:40 Syncope and collapse 593790101 Active 2019 Problem Code: R55; Problem Code Type: ICD-10; Not Available [facility] 3 04:42:40 Neck pain 46659092 Active 201904/29/19 22 - Comments only - [...] M54.2; Problem Code Type: ICD-10; Not Available [facility] 3 04:42:40 Migraine 34999902 Active 202104/29/19 22 - Comments only - Parmjit Chambers MD - , Intermit tent. For the most part she continue s to feel that use of the Imitrex and ibuprofe n works fairly well. Problem Code: G43.909; Problem Code Type: ICD-10; Not Available [facility] 3 04:42:40 History of SARS-CoV -2 54588162903 0755338 Active 202104/29/19 22 - Comments only - Parmjit Chambers MD - Symptoma tically resolved . Problem Code: Z86.16; Problem Code Type: ICD-10; Not Available [facility] 3 04:42:40 Screenin g mammogra phy Active 2021 Problem Code: Z12.31; Problem Code Type: ICD-10; Not Available [facility] 3 04:42:40 Paresthe alessandra 94856393 Active 202101/30/20 22 - Comments only - Parmjit Chambers MD - /4th and 5th digits/c hronic cervical kanwal. Rheumato logolri thinks she may have cubital tunnel syndrome . They had set up for her to have EMG/nerv e conducti on studies done. However Mj feels she has been getting good improvem ent in symptoms with working with PT, cervical manipula tion/lanre agee. Paresthe mario are improvin g. She is going to [...] R20.2; Problem Code Type: ICD-10; Not Available [facility] 3 04:42:40 Pain in thoracic spine 904912627 Active 2021 Problem Code: M54.6; Problem Code Type: ICD-10; Not Available [facility] 3 04:42:41 Anesthes ia of skin 734799031 Active 2021 Problem Code: R20.0; Problem Code Type: ICD-10; Not Available [facility] 3 04:42:41 Fatigue 45367799 Active 202111/12/19 22 - Comments only - [...] R53.83; Problem Code Type: ICD-10; Not Available [facility] 3 04:42:41 Lesion of ulnar nerve 934170142 Active 2021 Problem Code: G56.20; Problem Code Type: ICD-10; Not Available [facility] 3 04:42:41 History of traumati c brain injury 24471190862 100 Active 202105/10/19 23 - Comments only [...] Z87.820; Problem Code Type: ICD-10; Not Available [facility] 3 04:42:41 Cervical radiculo greg 64911543 Active 202209/12/19 23 - Comments only - Parmjit Chambers MD - , With fluctuat ions in intensit y. Overall she is managing it fairly well with the as needed use of methocar bamol, the soft c-collar . Doing some exercise s. Problem Code: M54.12; Problem Code Type: ICD-10; Not Available [facility] 3 04:42:41 Adjustme nt disorder 67458258 Active 202209/12/19 23 - Comments only - Parmjit Chambers MD - Supporti ve listenin g, she is thinking of getting plugged into counseli ng for herself. Her son is involved in [employer] riv[employer]. Problem Code: F43.20; Problem Code Type: ICD-10; Not Available [facility] 3 04:42:41 Acute upper respirat ory infectio n 26714268 Active 2022 Problem Code: J06.9; Problem Code Type: ICD-10; Not Available [facility] 3 04:42:42 Lichen simplex chronicu s 50072208 Active 2022 Problem Code: L28.0; Problem Code Type: ICD-10; Not Available [facility] 3 04:42:42 Acute sinusiti s 79632805 Completed 202009/11/2022 Problem Code: J01.90; Problem Code Type: ICD-10; Not Available [facility] 3 04:42:42 Pain in toe 958113374 Completed 202004/29/2021 Problem Code: M79.676; Problem Code Type: ICD-10; Not Available [facility] 3 04:42:42 Fever 435377501 Completed 201906/01/2019 Problem Code: R50.9; Problem Code Type: ICD-10; Not Available [facility] 3 04:42:42 Chronic sinusiti s 43604242 Completed 201606/01/2019 Problem Code: J32.9; Problem Code Type: ICD-10; Not Available [facility] 3 04:42:42 Asthma 198346264 Completed 200412/13/2022 Not Available [facility] 3 04:42:43 Pain of left knee joint 57259104823 4107 Completed 201909/11/2022 Problem Code: M25.562; Problem Code Type: ICD-10; Not Available [facility] 3 04:42:43 Biliary calculus 413843861 Completed Not Available [facility] 3 04:42:43 Biceps tendinit is 956955574 Completed 201509/11/2022 Problem Code: M75.21; Problem Code Type: ICD-10; Not Available [facility] 3 04:42:43 Pain in thoracic spine 706979632 Completed 201909/11/2022 Problem Code: M54.89; Problem Code Type: ICD-10; Not Available [facility] 3 04:42:43 Psoriasi s 1239866 Completed 202109/11/2022 Problem Code: L40.9; Problem Code Type: ICD-10; Not Available [facility] 3 04:42:43 Candidia sis 81613714 Completed 201406/01/2019 Problem Code: B37.9; Problem Code Type: ICD-10; Not Available [facility] 3 04:42:44 Dysuria 17196630 Completed 202004/29/2021 Problem Code: R30.0; Problem Code Type: ICD-10; Not Available [facility] 3 04:42:44 Abdomina l pain 75042999 Completed 202004/29/2021 Problem Code: R10.9; Problem Code Type: ICD-10; Not Available [facility] 3 04:42:44 Nasal congesti on 50991852 Completed 202104/29/2021 Problem Code: R09.81; Problem Code Type: ICD-10; Not Available [facility] 3 04:42:44 Exposure to communic able disease Completed 202004/29/2021 Problem Code: Z20.828; Problem Code Type: ICD-10; Not Available [facility] 3 04:42:44 Pain of left wrist 47980044402 9102 Completed 201806/01/2019 Problem Code: M25.532; Problem Code Type: ICD-10; Not Available [facility] 3 04:42:45 Adjustme nt disorder with depresse d mood 96518166 Completed 201506/01/2019 Problem Code: F43.21; Problem Code Type: ICD-10; Not Available [facility] 3 04:42:45 Venereal disease screenin g Completed 201609/11/2022 Problem Code: Z11.3; Problem Code Type: ICD-10; Not Available [facility] 3 04:42:45 Acute stress disorder 30894805 Completed 201506/01/2019 Problem Code: F43.0; Problem Code Type: ICD-10; Not Available [facility] 3 04:42:45 Uncompli cated asthma 294539882 Completed 200412/13/2022 Problem Code: J45.909; Problem Code Type: ICD-10; Not Available [facility] 3 04:42:45 Psoriati c arthriti s 408661303 Completed 202109/11/2022 Problem Code: L40.50; Problem Code Type: ICD-10; Not Available [facility] 3 04:42:46 Cellulit is 227227663 Completed 202004/29/2021 Problem Code: L03.90; Problem Code Type: ICD-10; Not Available [facility] 3 04:42:46 Cough 94919807 Completed 202004/29/2021 Problem Code: R05; Problem Code Type: ICD-10; Not Available [facility] 3 04:42:46 Dyspnea 228734524 Completed 202004/29/2021 Problem Code: R06.02; Problem Code Type: ICD-10; Not Available [facility] 3 04:42:46 Acute pharyngi tis 062861634 Completed 202212/14/2022 Problem Code: J02.9; Problem Code Type: ICD-10; Not Available [facility] 4 05:34:14 Pain in elbow 48305952 Active [address] [place], [address] , [facility]. 4 08:03:49 Spasm 37911883 Active [address] [place] [place], [address] , [facility] 4 17:04:08 Notes:*Problem Name: Positiv e Hpv *ICD-10 Codes: *Problem Status: inactive *Comments: *Note Date: 11/16/2008 Problem Notes None recorded. Medical Equipment None Reported. Allergies Allergen ID Allergen Name Allergen Category Reaction Reaction Severity Criticality Documentation Date Start Date Code Code System Note Provider Name and Address Organization Details Recorded Time 51805 acetamino phen / oxycodone medicatio n Not available Not available Not available 01/26/20232020 41360 3 RxNorm Aller gyCod e: '7224 67237 12'; Aller gyNam e: 'PERC OCET' ; Aller gyCon ceptT ype: 'NDC' ; Not Available [facility] 3 16:26:21 49075 Chantix medicatio n other severe Not available 01/26/20232011 34129 0 RxNorm went crazy Aller gyRea ction : 'went crazy '; Aller gyCod e: '5009 93949 00'; Aller gyNam e: 'ROJAS TIX'; Aller gyCon ceptT ype: 'NDC' ; Not Available [facility] 3 16:26:21 88312 Latex Exam Gloves medicatio n rash moderate Not available 01/26/20232014 rash Aller gyCod e: '0813 18443 60'; Aller gyNam e: 'LATE X EXAM GLOVE S'; Aller gyCon ceptT ype: 'NDC' ; Not Available [facility] 3 16:26:21 96383 copper environme nt,medica tion rash moderate Not available 01/26/20232016 2837 RxNorm rash Aller gyCod e: '2267 310'; Aller gyNam e: 'DARY ER'; Aller gyCon ceptT ype: 'RX Norm' ; Not Available [facility] 3 16:26:22 Medications Name Sig Start Date [...] once a day 01/27 completed Dermatol ogy [facility] Not Available Not Available Not Available amoxicill [...] Not Available Vitals Date Recorded Body height Oxygen saturation Oxygen saturation in Arterial blood by Pulse oximetry Heart rate Body temperature Systolic blood pressure Diastolic blood pressure Provider Name and Address Organization Details Last Updated DateTime 4 165.430 2 cm 98 % 98 % 80 /min 98.2 [degF] 104 mm[Hg] 64 mm[Hg] Maurisio Vigil MA [facility] 4 13:03:12 Social History Question Answer Notes LastModified by Organizat ion Details LastModified Time Tobacco Smoking Status Current Every Day Smoker Suly jones [facility] 03/27/2023 10:45:22 Would You Say That, In General, Your Health Is Good [email or web address] Information not available 06/15/2023 Women Aged 18-50 - Would You Like To Become In The Next Year? (Female Patients Only) No [email or web address] Information not available 06/15/2023 How Often Does Anyone, Including Family, Physically Hurt You? Never [email or web address] Information not available 06/15/2023 How Often Does Anyone, Including Family, Insult Or Talk Down To You? Rarely [email or web address] Information no t available 06/15/2023 How Often Does Anyone, Including Family, Threaten You With Harm? Never [email or web address] Information not available 06/15/2023 How Often Does Anyone, Including Family, Scream Or Curse At You? Sometimes [email or web address] Information not available 06/15/2023 Within The Past 12 Months, You Worried That Your Food Would Run Out Before You Got Money To Buy More. Never True [email or web address] Information n ot available 06/15/2023 Within The Past 12 Months, The Food You Bought Just Didn't Last And You Didn't Have Money To Get More. Never True [email or web address] Information n ot available 06/15/2023 How Hard Is It For You To Pay For The Very Basics Like Food, Housing, Medical Care, And Heating? Would You Say It Is: Somewhat Hard [email or web address] Information not available 06/15/2023 In The Past 12 Months, Has Lack Of Reliable Transportation Kept You From Medical Appointments, Meetings, Work Or From Getting Things Needed For Daily Living? Yes [email or web address] Information not available 06/15/2023 What Is Your Housing Situation Today? I Have Housing. [email or web address] Information not available 06/15/2023 How Often In The Past Year Have You Used Marijuana (including Smoking, Vaping, Dabbing, Or Edibles)? Never [email or web address] Information not available 06/15/2023 How Often In The Past Year Have You Used Prescription Medications That Were Not Prescribed To You? Never [email or web address] Information n ot available 06/15/2023 How Often In The Past Year Have You Taken Your Own Prescription Medication More Than The Way It Was Prescribed Or For Different Reasons Than Its Intended Purpose? Never [email or web address] Information no t available 06/15/2023 How Often In The Past Year Have You Used Other Drugs (for Example, Heroin, Cocaine, Meth, Salvia, Inhalants)? Never Information not available 06/15/2023 Have You Ever Used IV Drugs? No [email or web address] Information not available 06/15/2023 Date Of Most Recent SBINS 06/15/2023 [email or web address] Information not available 06/15/2023 What Was The Date Of Your Most Recent Tobacco Screening? 03/27/2023 [email or web address] Information not available 03/27/2023 What Is Your Current Pack Years? 20-29packyear s [email or web address] Information not available 03/27/2023 At What Age Did You Start Smoking Tobacco? 10 [email or web address] Information not available 03/27/2023 How Much Tobacco Do You Smoke? 1 PPD [email or web address] Information not available 03/27/2023 Has Tobacco Cessation Counseling Been Provided? Yes [email or web address] Information not available 03/27/2023 On What Date Was Tobacco Cessation Counseling Provided? 03/27/2023 [email or web address] Information not available 03/27/2023 How Many Years Have You Smoked Tobacco? 20 [email or web address] Information not available 03/27/2023 Do You Or Have You Ever Used Any Other Forms Of Tobacco Or Nicotine? No [email or web address] Information not available 03/27/2023 Sex: Female Functional Status None recorded. Mental Status None recorded. Family History Relationship Description Onset Age of this Age Resolved Age Notes LastModified by Organization Details LastModified Time Son Family history of acute medical disorder autoim mune disord er, causin g clots in kidney s and lungs Not available 01/26/2023 03:50:08 Mother Family history of alcoholism 44yo Not available 01/26/2023 03:50:09 Notes:*Problem: GM: Hypothyr [...] preservative free, adsorbed 11/27/2019 completed Not Available [facility] 01/26/2023 06:04:42 Tdap 10/20/2008 completed Not Available [facility] 06:04:43 Influenza, split virus, trivalent, preservative 01/20/2015 completed Not Available [facility] 01/26/2023 06:04:43 HPV9 04/22/2020 completed Not Available [facility] 06:04:43 HPV9 07/15/2020 completed Not Available [facility] 06:04:43 pneumococcal polysaccharide PPV23 11/12/2015 completed Not Available [facility] 2022 06:04:43 influenza, unspecified formulation 02/24/2011 completed Not Available [facility] 01/26/2023 06:04:43 Past Encounters Encounter ID Performer Location Encounter Start Date Encounter Closed Date Diagnosis/Indication Diagnosis SNOMED-CT Code Diagnosis ICD10 Code [id number] KENNY BLAIR PA-C [address] [address] 10/24/2023 15:16:06 10/24/2023 16:31:42 Shoulder pain 36349599 M25.260 [id number] PREM WEINSTEIN [address] [address] 11/07/2023 12:39:05 11/07/2023 13:40:40 Acute maxillary sinusitis 49073448 J01.00 Community acquired pneumonia 790808685 J18.9 Acute rukhsana c state due to acute stress reaction 184877278 F43.0 Health Concerns Section Related Observation LastModified by Organization Detai ls LastModified Time None Recorded Concern Status LastModified by Organization Details LastModified Time None Recorded Payers Encounter Date Sequence Insurance Name Policy Number Policy De Paz Covered Member ID De Paz Member ID Guarantor Name 11/07/2023 1 [facility] (MEDICAID) Mj Turner [id number] Mj Turner Notes Date Note Type Note Provider Name and Address Organization Details Recorded Time 11/07/2023 text/html HPI Notes: Kay nt with known exposure in son with [...] than respiratory symptoms as above). EWA SANTOS, [employer]SP[employer] [address], [place], [address], [facility]. 11/07/2023 13:55:41 OBGyn Episode No OBEpisode recorded.
--- OUTSIDE RECORDS SUMMARY | 2024-01-10 15:15 | XMS_ITS | Continuity of Care Document ---
Author Organization [facility] Address [address] [place] [address] Care Team Providers Care Kindergarten Tutor Name Role Phone JOVAN BINGHAM Dentist PARMJIT CHAMBERS Primary Care Provider RO RAMIREZ Psychiatric Nursing Aide IDA GOOD Canvas Repairer REINALDO BARROSO Neurologist Assessment No assessment recorded. Plan of Treatment Reminders Order Date Submit Date Provider Last Modified By Organization Details Last Modified Time Details Appointments Procedure 30 2023 01:40P M PARMJIT CHAMBERS Not available Not available Not available Annual Wellness Exam 40 2024 02:20P M PARMJIT CHAMBERS Not available Not available Not available Lab None recorded. Referral None recorded. Procedures None recorded. Surgeries None recorded. Imaging None recorded. Medication Orders methocarb simeon 750 mg tablet 2023 024 [email or web address] [facility], [address] [place], [address], 10/24/2023 17:07:46 ketorolac 60 mg/2 mL intramusc ular solution 2023 024 Not available 11/07/2023 13:30:33 Patient TargetsNo targets recorded. Patient InstructionsNo instructions recorded. Reason for Referral None Reported. Results Created Date Observation Date Name Description Value Unit Range Abnormal Flag Note LastModifiedBy Organization Detail LastModifiedTime 12/03/19 24 11/15/2021 imagi ng/di agnos tic [...] Time Human papillom a virus infectio n 979914412 Active 2008 Problem Code: B97.7; Problem Code Type: ICD-10; Not Available [facility] 3 04:42:38 Mild intermit tent asthma 040398685 Active 200404/29/19 22 - Comments only - Parmjit Chambers MD - Rare use of albutero l inhaler. Main issue is she needs to quit smoking, she not feeling ready to do that just yet Problem Code: J45.20; Problem Code Type: ICD-10; Not Available [facility] 3 04:42:38 Cholelit hiasis without obstruct ion 21875758 Active 2001 Problem Code: K80.20; Problem Code Type: ICD-10; Not Available [facility] 3 04:42:38 Cerebral cyst 33645346 Active 201404/29/19 22 - Comments only - Parmjit Chambers MD - We will consider repeat MRI for evaluati on to make sure this is not progress ing. Problem Code: G93.0; Problem Code Type: ICD-10; Not Available [facility] 3 04:42:38 Headache 45059291 Active 201411/12/19 22 - Comments only - [...] Code Type: ICD-10; Not Available [facility] 3 04:42:38 Concussi on with no loss of consciou sness 41336953 Active 201401/30/20 22 - Comments only - [...] ; Problem Code Type: ICD-10; Not Available [facility] 3 04:42:39 Contrace ption care manageme nt Active 201410/23/19 18 - Comments only - Parmjit Chambers MD - not particul arily happy with the mirena. She will think about options (which she is aware of) and let me know if she would like a change Problem Code: Z30.9; Problem Code Type: ICD-10; Not Available [facility] 3 04:42:39 Non-toxi c uninodul ar goiter 907727778 Active 201410/21/19 17 - Comments only - Parmjit Chambers MD - due for a repeat u/s to check on stabilit y Problem Code: E04.1; Problem Code Type: ICD-10; Not Available [facility] 3 04:42:39 Posttrau matic stress disorder 56015390 Active 201510/21/19 17 - Comments only - Parmjit Chambers MD - continui ng to work with behavior al health and they both feel she is making slow progress Problem Code: F43.10; Problem Code Type: ICD-10; Not Available [facility] 3 04:42:39 Adult health examinat ion [...] Z00.00; Problem Code Type: ICD-10; Not Available [facility] 3 04:42:39 Acne vulgaris 11120767 Active 201511/12/19 22 - Comments only - Parmjit Chambers MD - She did get a prescrip tion for spironol actone from dermatol [facility], I think she can hold off on filling it for now. If she does want to fill it she may call me to start at a lower dose, I will start her at 12.5 mg daily. 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 Problem Code: F06.31; Problem Code Type: ICD-10; Not Available [facility] 3 04:42:39 Enthesop athy 79953721 Completed 201709/24/2017 Problem Code: M77.9; Problem Code Type: ICD-10; Not Available [facility] 3 04:42:39 Tobacco use cessatio n educatio n Active 201705/10/19 23 - Comments only - Parmjit Chambers MD - When her stress level decrease s/brain, she might be more apt to work on quitting Problem Code: Z71.6; Problem Code Type: ICD-10; Not Available [facility] 3 04:42:40 Syncope and collapse 420351562 Active 2019 Problem Code: R55; Problem Code Type: ICD-10; Not Available [facility] 3 04:42:40 Neck pain 95740074 Active 201904/29/19 22 - Comments only - [...] M54.2; Problem Code Type: ICD-10; Not Available [facility] 3 04:42:40 Migraine 13955593 Active 202104/29/19 22 - Comments only - Parmjit Chambers MD - , Intermit tent. For the most part she continue s to feel that use of the Imitrex and ibuprofe n works fairly well. Problem Code: G43.909; Problem Code Type: ICD-10; Not Available [facility] 3 04:42:40 History of SARS-CoV -2 [id number] 5187706 Active 202104/29/19 22 - Comments only - Parmjit Chambers MD - Symptoma tically resolved . Problem Code: Z86.16; Problem Code Type: ICD-10; Not Available [facility] 3 04:42:40 Screenin g mammogra phy Active 2021 Problem Code: Z12.31; Problem Code Type: ICD-10; Not Available [facility] 3 04:42:40 Paresthe alessandra 69954830 Active 202101/30/20 22 - Comments only - [...] R20.2; Problem Code Type: ICD-10; Not Available [facility] 3 04:42:40 Pain in thoracic spine 524876214 Active 2021 Problem Code: M54.6; Problem Code Type: ICD-10; Not Available [facility] 3 04:42:41 Anesthes ia of skin 292450715 Active 2021 Problem Code: R20.0; Problem Code Type: ICD-10; Not Available [facility] 3 04:42:41 Fatigue 08070114 Active 202111/12/19 22 - Comments only - [...] R53.83; Problem Code Type: ICD-10; Not Available [facility] 3 04:42:41 Lesion of ulnar nerve 691976506 Active 2021 Problem Code: G56.20; Problem Code Type: ICD-10; Not Available [facility] 3 04:42:41 History of traumati c brain injury 37325500281 100 Active 202105/10/19 23 - Comments only [...] Z87.820; Problem Code Type: ICD-10; Not Available [facility] 3 04:42:41 Cervical radiculo greg 22777778 Active 202209/12/19 23 - Comments only - Parmjit Chambers MD - , With fluctuat ions in intensit y. Overall she is managing it fairly well with the as needed use of methocar bamol, the soft c-collar . Doing some exercise s. Problem Code: M54.12; Problem Code Type: ICD-10; Not Available [facility] 3 04:42:41 Adjustme nt disorder 66277307 Active 202209/12/19 23 - Comments only - Parmjit Chambers MD - Branden petersen, she is thinking of getting plugged into counseli ng for herself. Her son is involved in counseli ng. Problem Code: F43.20; Problem Code Type: ICD-10; Not Available [facility] 3 04:42:41 Acute upper respirat ory infectio n 36350572 Active 2022 Problem Code: J06.9; Problem Code Type: ICD-10; Not Available [facility] 3 04:42:42 Lichen simplex chronicu s 23858798 Active 2022 Problem Code: L28.0; Problem Code Type: ICD-10; Not Available [facility] 3 04:42:42 Acute sinusiti s 91648004 Completed 202009/11/2022 Problem Code: J01.90; Problem Code Type: ICD-10; Not Available [facility] 3 04:42:42 Pain in toe 880702614 Completed 202004/29/2021 Problem Code: M79.676; Problem Code Type: ICD-10; Not Available [facility] 3 04:42:42 Fever 112494029 Completed 201906/01/2019 Problem Code: R50.9; Problem Code Type: ICD-10; Not Available [facility] 3 04:42:42 Chronic sinusiti s 09982381 Completed 201606/01/2019 Problem Code: J32.9; Problem Code Type: ICD-10; Not Available [facility] 3 04:42:42 Asthma 994926449 Completed 200412/13/2022 Not Available [facility] 3 04:42:43 Pain of left knee joint 28873271083 4107 Completed 201909/11/2022 Problem Code: M25.562; Problem Code Type: ICD-10; Not Available [facility] 3 04:42:43 Biliary calculus 800651336 Completed Not Available [facility] 3 04:42:43 Biceps tendinit is 659863334 Completed 201509/11/2022 Problem Code: M75.21; Problem Code Type: ICD-10; Not Available [facility] 3 04:42:43 Pain in thoracic spine 801422318 Completed 201909/11/2022 Problem Code: M54.89; Problem Code Type: ICD-10; Not Available [facility] 3 04:42:43 Psoriasi s 3643266 Completed 202109/11/2022 Problem Code: L40.9; Problem Code Type: ICD-10; Not Available [facility] 3 04:42:43 Candidia sis 67367272 Completed 201406/01/2019 Problem Code: B37.9; Problem Code Type: ICD-10; Not Available [facility] 3 04:42:44 Dysuria 61679464 Completed 202004/29/2021 Problem Code: R30.0; Problem Code Type: ICD-10; Not Available [facility] 3 04:42:44 Abdomina l pain 58930711 Completed 202004/29/2021 Problem Code: R10.9; Problem Code Type: ICD-10; Not Available [facility] 3 04:42:44 Nasal congesti on 71453416 Completed 202104/29/2021 Problem Code: R09.81; Problem Code Type: ICD-10; Not Available [facility] 3 04:42:44 Exposure to communic able disease Completed 202004/29/2021 Problem Code: Z20.828; Problem Code Type: ICD-10; Not Available [facility] 3 04:42:44 Pain of left wrist 65313826086 9102 Completed 201806/01/2019 Problem Code: M25.532; Problem Code Type: ICD-10; Not Available [facility] 3 04:42:45 Adjustme nt disorder with depresse d mood 41710129 Completed 201506/01/2019 Problem Code: F43.21; Problem Code Type: ICD-10; Not Available [facility] 3 04:42:45 Venereal disease screenin g Completed 201609/11/2022 Problem Code: Z11.3; Problem Code Type: ICD-10; Not Available [facility] 3 04:42:45 Acute stress disorder 34746055 Completed 201506/01/2019 Problem Code: F43.0; Problem Code Type: ICD-10; Not Available [facility] 3 04:42:45 Uncompli cated asthma 067283556 Completed 200412/13/2022 Problem Code: J45.909; Problem Code Type: ICD-10; Not Available [facility] 3 04:42:45 Psoriati c arthriti s 157997696 Completed 202109/11/2022 Problem Code: L40.50; Problem Code Type: ICD-10; Not Available [facility] 3 04:42:46 Cellulit is 737176177 Completed 202004/29/2021 Problem Code: L03.90; Problem Code Type: ICD-10; Not Available [facility] 3 04:42:46 Cough 62717406 Completed 202004/29/2021 Problem Code: R05; Problem Code Type: ICD-10; Not Available [facility] 3 04:42:46 Dyspnea 576989914 Completed 202004/29/2021 Problem Code: R06.02; Problem Code Type: ICD-10; Not Available [facility] 3 04:42:46 Acute pharyngi tis 887750965 Completed 202212/14/2022 Problem Code: J02.9; Problem Code Type: ICD-10; Not Available [facility] 4 05:34:14 Pain in elbow 08443802 Active 2023 PARMJIT CHAMBERS MD [address], [place], [address] , [facility]. 4 08:03:49 Spasm 56913972 Active 2023 PARMJIT CHAMBERS MD [address], [place], [address] , [facility] 4 17:04:08 Notes:*Problem Name: Positiv e Hpv *ICD-10 Codes: *Problem Status: inactive *Comments: *Note Date: 11/16/2008 Problem Notes None recorded. Medical Equipment None Reported. Allergies Allergen ID Allergen Name Allergen Category Reaction Reaction Severity Criticality Documentation Date Start Date Code Code System Note Provider Name and Address Organization Details Recorded Time 83280 acetamino phen / oxycodone medicatio n Not available Not available Not available 01/26/20232020 08597 3 RxNorm Aller gyCod e: '7224 15408 12'; Aller gyNam e: 'PERC OCET' ; Aller gyCon ceptT ype: 'NDC' ; Not Available [facility] 3 16:26:21 54142 Chantix medicatio n other severe Not available 01/26/20232011 59896 0 RxNorm went crazy Aller gyRea ction : 'went crazy '; Aller gyCod e: '5009 13275 00'; Aller gyNam e: 'ROJAS TIX'; Aller gyCon ceptT ype: 'NDC' ; Not Available [facility] 3 16:26:21 25796 Latex Exam Gloves medicatio n rash moderate Not available 01/26/20232014 rash Aller gyCod e: '0813 34811 60'; Aller gyNam e: 'LATE X EXAM GLOVE S'; Aller gyCon ceptT ype: 'NDC' ; Not Available [facility] 3 16:26:21 79180 copper environme nt,medica tion rash moderate Not available 01/26/20232016 2837 RxNorm rash Aller gyCod e: '1891 310'; Aller gyNam e: 'DARY ER'; Aller gyCon ceptT ype: 'RX Norm' ; Not Available [facility] 3 16:26:22 Medications Name Sig Start Date [...] once a day 01/27 completed Dermatol ogy [facility] Not Available Not Available Not Available amoxicill [...] 114 mm[Hg] 70 mm[Hg] Maurisio Vigil MA [facility]IC[facility] 4 15:38:24 Social History Question Answer Notes LastModified by Organizat ion Details LastModified Time Tobacco Smoking Status Current Every [facility] 10:45:22 Would You Say That, In General, Your Health Is Good [email or web address] Information not available 06/15/2023 Women Aged 18-50 - Would You Like To Become In The Next Year? (Female Patients Only) No [email or web address] Information not available 06/15/2023 How Often Does Anyone, Including Family, Physically Hurt You? Never [email or web address] Information not available 06/15/2023 How Often Does Anyone, Including Family, Insult Or Talk Down To You? Rarely [email or web address] Information no t available 06/15/2023 How Often Does Anyone, Including Family, Threaten You With Harm? Never [email or web address] Information not available 06/15/2023 How Often Does Anyone, Including Family, Scream Or Curse At You? Sometimes Information not available 06/15/2023 Within The Past 12 Months, You Worried That Your Food Would Run Out Before You Got Money To Buy More. Never True [email or web address] Information n ot available 06/15/2023 Within The Past 12 Months, The Food You Bought Just Didn't Last And You Didn't Have Money To Get More. Never True [email or web address] Information n ot available 06/15/2023 How Hard Is It For You To Pay For The Very Basics Like Food, Housing, Medical Care, And Heating? Would You Say It Is: Somewhat Hard [email or web address] Information not available 06/15/2023 In The Past 12 Months, Has Lack Of Reliable Transportation Kept You From Medical Appointments, Meetings, Work Or From Getting Things Needed For Daily Living? Yes Information not available 06/15/2023 What Is Your Housing Situation Today? I Have Housing. [email or web address] Information not available 06/15/2023 How Often In The Past Year Have You Used Marijuana (including Smoking, Vaping, Dabbing, Or Edibles)? Never [email or web address] Information not available 06/15/2023 How Often In The Past Year Have You Used Prescription Medications That Were Not Prescribed To You? Never [email or web address] Information n ot available 06/15/2023 How Often In The Past Year Have You Taken Your Own Prescription Medication More Than The Way It Was Prescribed Or For Different Reasons Than Its Intended Purpose? Never [email or web address] Information no t available 06/15/2023 How Often In The Past Year Have You Used Other Drugs (for Example, Heroin, Cocaine, Meth, Salvia, Inhalants)? Never [email or web address] Information not available 06/15/2023 Have You Ever Used IV Drugs? No [email or web address] Information not available 06/15/2023 Date Of Most Recent SBINS 06/15/2023 [email or web address] Information not available 06/15/2023 What Was The Date Of Your Most Recent Tobacco Screening? 03/27/2023 [email or web address] Information not available 03/27/2023 What Is Your Current Pack Years? 20-29paherlinda s Information not available 03/27/2023 At What Age Did You Start Smoking Tobacco? 10 [email or web address] Information not available 03/27/2023 How Much Tobacco Do You Smoke? 1 PPD [email or web address] Information not available 03/27/2023 Has Tobacco Cessation Counseling Been Provided? Yes Information not available 03/27/2023 On What Date Was Tobacco Cessation Counseling Provided? 03/27/2023 [email or web address] Information not available 03/27/2023 How Many Years Have You Smoked Tobacco? 20 Information not available 03/27/2023 Do You Or Have You Ever Used Any Other Forms Of Tobacco Or Nicotine? No [email or web address] Information not available 03/27/2023 Sex: Female Functional [...] preservative free, adsorbed 11/27/2019 completed Not Available [facility] 01/26/2023 06:04:42 Tdap 10/20/2008 completed Not Available [facility] 06:04:43 Influenza, split virus, trivalent, preservative 01/20/2015 completed Not Available [facility] 01/26/2023 06:04:43 HPV9 04/22/2020 completed Not Available [facility] 06:04:43 HPV9 07/15/2020 completed Not Available [facility] 06:04:43 pneumococcal polysaccharide PPV23 11/12/2015 completed Not Available [facility] 2022 06:04:43 influenza, unspecified formulation 02/24/2011 completed Not Available [facility] 01/26/2023 06:04:43 Past Encounters Encounter ID Performer Location Encounter Start Date Encounter Closed Date Diagnosis/Indication Diagnosis SNOMED-CT Code Diagnosis ICD10 Code [id number] KENNY BLAIR PA-C [address] [address] 10/24/2023 15:16:06 10/24/2023 16:31:42 Shoulder pain 57762570 M25.519 Health Concerns Section Related Observation LastModified by Organization Detai ls LastModified Time None Recorded Concern Status LastModified by Organization Details LastModified Time None Recorded Payers Encounter Date Sequence Insurance Name Policy Number Policy De Paz Covered Member ID De Paz Member ID Guarantor Name 10/24/2023 1 [facility] (MEDICAID) Mj Turner [id number] Mj Turner Notes Date Note Type Note Provider Name and Address Organization Details Recorded Time 10/24/2023 text/html HPI Notes: 43y/o female presenting with c/o shoulder pain. Typically follows with [facility]. Michelle reached out to [facility] earlier today with c/o reactivation of [...] using OTC IBUPROFEN sparingly with modest effect. KENNY BLAIR PA-C [address], [place], [address], [facility]. 10/24/2023 18:51:20 OBGyn Episode No OBEpisode recorded.
--- OUTSIDE RECORDS SUMMARY | 2024-01-10 15:15 | XMS_ITS | Encounter Summary ---
Author Organization [facility] [place] [address] Care Team Providers Care Network Applications Specialist Name Role Phone Marline Fortune MD Primary Care Provider [phone] Encounter Details Date Type Department Care Team (Late st Contact Info) Description 11/29/2021 Telephone [place] [id number] Sylvia Baron MA Social History Tobacco Use Types Packs/Day Years Used Date Smoking Tobacco: Every Day Cigarettes Smokeless Tobacco: Never Alcohol Use Standard Drinks/Week Comments No 0 (1 standard drink = 0.6 oz pur e alcohol) Sex and Gender Information Value Date Recorded Sex Assigned at Not on file Gender Identity Not on file Sexual Orientation Not on file documented as of this encounter Miscellaneous Notes * Telephone Encounter - Sylvia Baron RMA - 11/29/2021 3:15 PM EDT Called patient for pre-charting, no answer. DAMARIS CABRALES documented in this encounter Plan of Treatment Not on file documented as of this encounter Visit Diagnoses Not on filedocumented in this encounter Care Teams Network Applications Specialist Relationship Specialty Start Date End Date Marline Fortune MD [address] [place] [address] PCP - General Family Medicine 01/07/15 documented as of this encounter
--- OUTSIDE RECORDS SUMMARY | 2024-01-10 15:15 | XMS_ITS | Encounter Summary ---
Author Organization [facility] [place] [address] Care Team Providers Care Schedule Planning Manager Name Role Phone Marline Fortune MD Primary Care Provider [phone] Reason for Visit * Reason Onset Date Comments Prior Authorization 12/28/2015 [email or web address] Encounter Details Date Type Department Care Team (Late st Contact Info) Description 12/28/2015 Telephone Neurology at [facility] [place] [id number] Magdiel Thompson MD [facility] [place] [address] Prior Authorization (rizatriptan) Social History Tobacco Use Types Packs/Day Years Used Date Smoking Tobacco: Every Day Cigarettes Alcohol Use Standard Drinks/Week Comments No 0 (1 standard drink = 0.6 oz pur e alcohol) Sex and Gender Information Value Date Recorded Sex Assigned at Not on file Gender Identity Not on file Sexual Orientation Not on file documented as of this encounter Miscellaneous Notes * Telephone Encounter - Devi Miller CMA - 01/18/2016 10:12 AM EDT Called pharmacy and will fill prescription,Patient is aware * Telephone Encounter - Devi Miller CMA - 01/03/2016 10:35 AM EDT Faxed [place] medicaid * Telephone Encounter - Christian Courtney LPN - 12/28/2015 10:21 AM EDT Images from the original note were not included. documented in this encounter Plan of Treatment Not on file documented as of this encounter Visit Diagnoses Not on filedocumented in this encounter Care Teams Schedule Planning Manager Relationship Specialty Start Date End Date Marline Fortune MD [address] [place] [address] PCP - General Family Medicine 01/07/15 documented as of this encounter
--- OUTSIDE RECORDS SUMMARY | 2024-01-10 15:15 | XMS_ITS | Encounter Summary ---
Author Organization [facility] [place] [address] Care Team Providers Care Cnc Specialist Name Role Phone Marline Fortune MD Primary Care Provider Encounter Details Date Type Department Care Team (Late st Contact Info) Description 12/23/2015 Orders [address] [facility] [place] [address] Hair Rowell MD [facility] [place] [address] Intractable chronic migraine without aura and without status migrainosus Social History Tobacco Use Types Packs/Day Years Used Date Smoking Tobacco: Every Day Cigarettes Alcohol Use Standard Drinks/Week Comments No 0 (1 standard drink = 0.6 oz pur e alcohol) Sex and Gender Information Value Date Recorded Sex Assigned at Not on file Gender Identity Not on file Sexual Orientation Not on file documented as of this encounter Plan of Treatment Not on file documented as of this encounter Visit Diagnoses Diagnosis Intractable chronic migraine without aura and without status migrainosus Chronic migraine without aura, with intractable migraine, so stated, without mention of status migrainosus documented in this encounter Care Teams Cnc Specialist Relationship Specialty Start Date End Date Marline Fortune MD [address] [place], [place] [address] PCP - General Family Medicine 01/07/15 documented as of this encounter
--- OUTSIDE RECORDS SUMMARY | 2024-01-10 15:15 | XMS_ITS | Encounter Summary ---
Author Organization [facility] [address] Care Team Providers Care Lime Kiln And Recausticizing Operator Name Role Phone Marline Fortune MD Primary Care Provider Reason for Referral * Consultation (Routine) - Closed Specialty Diagnoses / Procedures Referred By Contcintia t Referred To Contact Dermatology Diagnoses Psoriasis Cystic acne Marline Fortune MD [address] [place] [address] [facility] [address] [place] [address] Referral ID Status Reason Start Date Expiration Date V isits Requested Visits Authorized [id number] Closed Consult, Test & Treat PCP Updated and/or Approved 07/09/2021 07/09/2022 12 12 Encounter Details Date Type Department Care Team (Late st Contact Info) Description 07/09/2021 Transcribe Orders eDH Incoming Referrals [phone] Marline Fortune MD [address] [place], [place] [id number] Psoriasis; Cystic acne Social History Tobacco Use Types Packs/Day Years [...] as of this encounter Plan of Treatment Scheduled Referrals Name Type Priority Associated Diagnoses Order Schedule Referral to Dermatology Outpatient Referral Routine Psoriasis Cystic acne Ordered: 07/09/2021 documented as of this encounter Visit Diagnoses Diagnosis Psoriasis Other psoriasis Cystic acne Other acne documented in this encounter Care Teams Lime Kiln And Recausticizing Operator Relationship Specialty Start Date End Date Marline Fortune MD [address] [place] [address] PCP - General Family Medicine 01/07/15 documented as of this encounter
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
--- OUTSIDE RECORDS SUMMARY | 2024-01-10 15:15 | XMS_ITS | Encounter Summary ---
Author Organization [facility] [place] [address] Care Team Providers Care Health Services Information Specialist Name Role Phone Marline Fortune MD Primary Care Provider [phone] Reason for Visit * Reason Onset Date Comments Medication Refill 12/23/2015 Encounter Details Date Type Department Care Team (Late st Contact Info) Description 12/23/2015 Refill Neurology at [facility] [place] [address] Magdiel Thompson [place] [address] Chronic migraine without aura with status migrainosus, not intractable Social History Tobacco Use Types Packs/Day Years [...] as of this encounter Visit Diagnoses Diagnosis Chronic migraine without aura with status migrainosus, not intractable Chronic migraine without aura, without mention of intractable migraine with status migrainosus documented in this encounter Care Teams Health Services Information Specialist Relationship Specialty Start Date End Date Marline Fortune MD [address] [place] [address] PCP - General Family Medicine 01/07/15 documented as of this encounter
--- OUTSIDE RECORDS SUMMARY | 2024-01-10 15:15 | XMS_ITS | Encounter Summary ---
Author Organization [facility] [place] [address] Care Team Providers Care Psychiatry Instructor Name Role Phone Marline Fortune MD Primary Care Provider [phone] Reason for Visit * Reason Onset Date Comments Prior Authorization 03/27/2016 DHE Encounter Details Date Type Department Care Team (Late st Contact Info) Description 03/27/2016 Telephone Neurology at [facility] [place] [address] Magdiel Thompson MD [facility] [place] [address] Prior Authorization (DHE ) Social History Tobacco Use Types Packs/Day Years [...] encounter Miscellaneous Notes * Telephone Encounter - Kait Ding RN - 05/12/2016 3:34 PM EST Called pharmacy and notified them that PA is not required. Pharmacist says he thinks someone may have started a PA without trying the med because it usually requires one. Patient has already picked up the medication. * Telephone Encounter - Kait Ding RN - 03/28/2016 7:39 AM EST Images from the original note were not included. * Telephone Encounter - Christian Courtney LPN - 03/27/2016 3:12 PM EST Prior authorization for DHE nasal spray submitted to [place] Medicaid via cover my meds. documented in this encounter Plan of Treatment Not on file documented as of this encounter Visit Diagnoses Not on filedocumented in this encounter Care Teams Psychiatry Instructor Relationship Specialty Start Date End Date Marline Fortune MD [address] [place] [address] PCP - General Family Medicine 01/07/15 documented as of this encounter
--- OUTSIDE RECORDS SUMMARY | 2024-01-10 15:15 | XMS_ITS | Encounter Summary ---
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 migraine without aura, without mention of intractable migraine with status migrainosus documented in this encounter Administered Medications Inactive Administered Medications - up to 3 most recent administrations Medication Order MAR Action Action Date Dose Rate Site botulinum toxin type A (BOTOX) injection 200 Units 200 Units, Intramuscular, ONCE, 1 dose, On Sun03/22/16 at 1145, Routine Given 03/22/2016 12:36 PM EST 155 Units 20-Other (document in comment section) documented in this encounter Care Teams Construction Trades Contractor Relationship Specialty Start Date End Date Marline Fortune MD [address] [place] [address] PCP - General Family Medicine 01/07/15 documented as of this encounter
--- OUTSIDE RECORDS SUMMARY | 2024-01-10 15:15 | XMS_ITS | Encounter Summary ---
Author Organization [facility] Address [address] [place] [address] Care Team Providers Care Numerical Analysis Group Manager Name Role Phone Tish Archibald MD Primary Care Provider [phone] Encounter Details Date Type Department Care Team (Late st Contact Info) Description 03/02/2006 Results Only [facility] - Map conversion [address] [place] [address] Tish Archibald MD [address] [phone] Social History Tobacco Use Types Packs/Day Years Used Date Smoking Tobacco: Never Assessed Sex and Gender Information Value Date Recorded Sex Assigned at Not on file Gender Identity Not on file Sexual Orientation Not on file documented as of this encounter Plan of Treatment Not on file documented as of this encounter Procedures Procedure Name Priority Date/Time Associated Diagnosis Comments CYTOPATHOLOGY Routine 03/02/2006 0:00 EST documented in this encounter Results * CYTOPATHOLOGY (03/02/2006 0:00 EST) Pathology Report: CYTOPATHOLOGY REPORT Reports generated via electronic interface contain original data; however they are lacking the format of the original report. Caution should be taken when reading/interpreti ng unformatted reports. Name: ? BUDDY HALEY ? Accession #: ? [id number] : ? 1980 (Age: 25) ??F ?Collect Date: ? 03/02/2006 Location: ? [facility] ? Receive Date: ? 03/05/2006 Provider: ?TISH ARCHIBALD MD Copy to: ? Specimen/Source: ?ThinPrep Pap Test, Cervix/Endocervix, processed on Pressable ThinPrep Imaging System, with manual evaluation Last Menstrual Period: ? Menstrual/Pregnanc y Status: ? Post Other: ? HPVA - HPV testing requested if ASC-US on the current ThinPrep Pap test. ? SPECIMEN ADEQUACY ? Satisfactory for Evaluation - transformation zone component present GENERAL CATEGORIZATION ? Negative for Intraepithelial Lesion or Malignancy ? Document reviewed and electronically signed by: ? Sarika Knicaid, [facility](ASCP) ? Report Date: ??03/08/2006 11:07 End of Report [facility] 03/02/2006 03/05/2006 Tish Archibald MD PATHOLOGY ORDERABLES Performing Organization Address City/State/[facility] Co de Phone Number [facility] [address] [place] [address] documented in this encounter Visit Diagnoses Not on filedocumented in this encounter Care Teams Numerical Analysis Group Manager Relationship Specialty Start Date End Date Tish Archiblad MD [address] [place] [phone] PCP - General 10/27/08 04/18/22 documented as of this encounter
--- OUTSIDE RECORDS SUMMARY | 2024-01-10 15:15 | XMS_ITS | Encounter Summary ---
Author Organization [facility] Located [facility] [place] [address] Care Team Providers Care Collar Tacker Name Role Phone Marline Fortune MD Primary Care Provider [phone] Reason for Visit * Reason Onset Date Comments Prior Authorization 11/24/2015 Prior Author ization needed dihydroergotamine nasal spray Encounter Details Date Type Department Care Team (Late st Contact Info) Description 11/24/2015 Telephone Neurology at [facility] [place] [address] Magdiel Thompson [place] [address] Prior Authorization (Prior Authorization needed dihydroergotamine nasal spray) Social History Tobacco Use Types Packs/Day Years Used Date Smoking Tobacco: Every Day Cigarettes Alcohol Use Standard Drinks/Week Comments Yes 0 (1 standard drink = 0.6 oz pur e alcohol) Sex and Gender Information Value Date Recorded Sex Assigned at Not on file Gender Identity Not on file Sexual Orientation Not on file documented as of this encounter Miscellaneous Notes * Telephone Encounter - Christian Courtney LPN - 12/28/2015 10:01 AM EDT Medication was discontinued on 12/24/15 and another prescribed. * Telephone Encounter - Christian Courtney LPN - 12/21/2015 4:36 PM EDT Resubmitted prior authorization as [place] Medicaid states they did not receive it. * Telephone Encounter - Christian Courtney LPN - 11/25/2015 1:01 PM EDT Prior authorization submitted via cover my meds. * Telephone Encounter - Kait Ding RN - 11/24/2015 11:28 AM EDT Prior Authorization needed dihydroergotamine nasal spray [place]: [id number] documented in this encounter Plan of Treatment Not on file documented as of this encounter Visit Diagnoses Not on filedocumented in this encounter Care Teams Collar Tacker Relationship Specialty Start Date End Date Marline Fortune MD [address] [place] [address] PCP - General Family Medicine 01/07/15 documented as of this encounter
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
--- OUTSIDE RECORDS SUMMARY | 2024-01-10 15:15 | XMS_ITS | Encounter Summary ---
Author Organization [facility] Address [address] [place] [address] Care Team Providers Care Hospital Unit Clerk Name Role Phone Tish Archibald MD Primary Care Provider [phone] Encounter Details Date Type Department Care Team (Late st Contact Info) Description 12/25/2008 Orders Only [facility] - [facility] ([facility]) [address] [place], [place] [id number] Nita Goldsmith MD [address] [place] [address] [place] [address] Social History Tobacco Use Types Packs/Day Years Used Date Smoking Tobacco: Never Assessed Sex and Gender Information Value Date Recorded Sex Assigned at Not on file Gender Identity Not on file Sexual Orientation Not on file documented as of this encounter Plan of Treatment Not on file documented as of this encounter Procedures Procedure Name Priority Date/Time Associated Diagnosis Comments SURGICAL PATHOLOGY Routine 12/25/2008 0:00 EDT documented in this encounter Results * SURGICAL PATHOLOGY (12/25/2008 0:00 EDT) Pathology Report: SURGICAL PATHOLOGY REPORT ? Reports generated via electronic interface contain original data; ? however they are lacking the format of the original report. ? Caution should be taken when reading/interpreting unformatted reports. ? Name: ? YOUNG, HALEY ? Accession #: ? [id number] ? : ? 1980 (Age: 28) ??F ? Collect Date: ? 12/25/2008 ? Location: ? [facility] ? Receive Date: ? 12/25/2008 ? Provider: NITA SUNSHINE MD ? Copy to: TISH ARCHIBALD MD ? KASSIDY W BESCH WE[employer] UI SOFTWARE ENGINEER ? Final Pathologic Diagnosis: ? A. ?Cervix, 2 o'clock, biopsy: ? 1. ??Reactive squamous metaplasia. ?2. ??No dysplasia identified. ? B. ?? Endocervix, curettage: ? 1. ??Endocervical mucosa with reactive squamous metaplasia. ??See comment. ? 2. ??No dysplasia identified. ? Comment: ? Television Production Clerk sections of (B) have been reviewed at intradepartmental ? consultation conference. ??(Dr. Carson)/cjh ? Document reviewed and electronically signed by: ? CHAMP CARSON MD ? Report ??Date: 12/28/2008 21:42 ? By the signature above, the attending physician certifies that he/she has ? personally conducted a gross and/or microscopic examination of the described ? specimens and rendered or confirmed the above diagnosis. ? Specimen(s) Received: ? A. ?? Cervix bx at 2:00 ? B. ?Endocervical curettage ? Clinical History: ? 8/09 Pap ASC-US (+) HPV; LMP: spotting //. Mirena IUD ? Gross Description: ? Received in formalin labelled Young, Haley and cervical bx at 2:00 is a rodríguez-white tissue measuring 0.7 x 0.3 x 0.2 cm. ??Submitted as (A). ? Received in formalin labelled Haley Turner and endocervical curettage ?? are multiple fragments of red-brownt tissue admixed with mucus. ??The specimen ?? measures 1.5 x 0.5 x 0.2 cm in aggregate. ??Submitted entirely as (B) after ? filtration. (Dr. Linares)/mpl ? End of Report ? [facility] 12/25/2008 12/25/2008 17: 37 EDT Nita Goldsmith MD PATHOLOGY ORDERABLES [facility] [address] [place] [address] documented in this encounter Visit Diagnoses Not on filedocumented in this encounter Care Teams Hospital Unit Clerk Relationship Specialty Start Date End Date Tish Archibald MD [address] [place] [phone] PCP - General 10/27/08 04/18/22 documented as of this encounter
--- OUTSIDE RECORDS SUMMARY | 2024-01-10 15:15 | XMS_ITS | Encounter Summary ---
Author Organization [facility] Address [address] [place] [address] Care Team Providers Care Family Court Registrar Name Role Phone Tish Poole MD Primary Care Provider [phone] Marline Fortune MD Primary Care Provider Encounter Details Date Type Department Care Team (Late st Contact Info) Description 11/30/2020 Lab Requisition [facility] Pathology & Laboratory Medicine - [address] [address] Outr Resulting Lab, Provider Social History Tobacco Use Types Packs/Day Years Used Date Smoking Tobacco: Never Assessed Sex and Gender Information Value Date Recorded Sex Assigned at Not on file Gender Identity Not on file Sexual Orientation Not on file documented as of this encounter Plan of Treatment Not on file documented as of this encounter Procedures Procedure Name Priority Date/Time Associated Diagnosis Comments ZZCOVID-19 TEST [facility] PCR Today 11/29/2020 14:05 EDT COVID-19 TESTING Routine 11/29/2020 14:0 5 EDT documented in this encounter Results * COVID-19 TEST [facility] PCR (11/29/2020 14:05 EDT) Swab ENTIRE NASOPHARYNX / Unknown 11/29/2020 14:05 EDT 11/30/2020 15:32 EDT Provider Outr Resulting Lab MICROBIOLOGY - GENERAL ORDERABLES [facility] [address] [place] [address] * COVID-19 TESTING (11/29/2020 14:05 EDT) COVID-19 rt-PCR Result Negative Negative 12/01/2020 13:28 EDT [facility] Comment: This test has not been FDA cleared or approved. This test has been authorized by FDA under an EUA for use by authorized laboratories. This test has been authorized only for detection of nucleic acid from 2019-nCoV, not for any other viruses or pathogens. This test is only authorized for the duration of the declaration that circumstances exist justifying the authorization of emergency use of in vitro diagnostic tests for detection and/or diagnosis of 2019-nCoV under section 564(b)(1) of Act, 21 U.S.C ?? 360bbb-3(b) (1), unless the authorization is terminated or revoked sooner. Negative results do not preclude 2019-nCoV infection and should not be used as the sole basis for treatment or other patient management decisions. Negative results must be combined with clinical observations, patient history, and epidemiological information. This test was developed and its performance characteristics determined by [facility]. It has not been cleared or approved by the US Food and Drug Administration. FDA does not require this test to go through premarket FDA review. This test is used for clinical purposes. It should not be regarded as investigational or for research. This laboratory is certified under the Clinical Laboratory Improvement Amendments (CLIA) as qualified to perform high complexity clinical laboratory testing. This test is based on the [facility] COVID-19 Emergency Use Authorization (EUA) assay, with minor modification as defined by the FDA Performed on the Natrix Separations 7 Flex RT-PCR System. This test was developed and its performance characteristics determined by [facility]. It has not been cleared or approved by the US Food and Drug Administration. FDA does not require this test to go through premarket FDA review. This test is used for clinical purposes. It should not be regarded as investigational or for research. This laboratory is certified under the Clinical Laboratory Improvement Amendments (CLIA) as qualified to perform high complexity clinical laboratory testing. This test is based on the [facility] COVID-19 Emergency Use Authorization (EUA) assay, with minor modification as defined by the FDA Performed on the Natrix Separations 7 Pro RT-PCR System. Performing Lab [facility] 12/01/2020 13:28 EDT [facility] Swab 11/29/2020 14:0 5 EDT 11/30/2020 15:32 EDT Provider Outr Resulting Lab MICROBIOLOGY - GENERAL ORDERABLES Performing Organization Address City/State/[facility] Co de Phone Number [facility] [address] [place] [address] documented in this encounter Visit Diagnoses Not on filedocumented in this encounter Care Teams Family Court Registrar Relationship Specialty Start Date End Date Tish Poole MD [address] [place] [phone] PCP - General 10/27/08 04/18/22 Marline Fortune MD [address] [place] [phone] PCP - General 04/19/22 documented as of this encounter
--- OUTSIDE RECORDS SUMMARY | 2024-01-10 15:15 | XMS_ITS | Encounter Summary ---
Author Organization [facility] Address [address] [place] [address] Care Team Providers Care Merchandise Stocker Name Role Phone Tish Archibald MD Primary Care Provider [phone] Encounter Details Date Type Department Care Team (Late st Contact Info) Description 03/29/2007 Results Only [facility] - Maple conversion [address] [place] [address] Tish Archibald MD [address] [phone] Social History Tobacco Use Types [...] Priority Date/Time Associated Diagnosis Comments CYTOPATHOLOGY Routine 03/29/2007 0:00 EST documented in this encounter Results * CYTOPATHOLOGY (03/29/2007 0:00 EST) Pathology Report: CYTOPATHOLOGY REPORT Reports generated via electronic interface contain original data; however they are lacking the format of the original report. Caution should be taken when reading/interpreti ng unformatted reports. Name: ? BUDDY HALEY ? Accession #: ? [id number] : ? 1980 (Age: 26) ??F ?Collect Date: ? 03/29/2007 Location: ? [facility] ? Receive Date: ? 04/01/2007 Provider: ?TISH ARCHIBALD MD Copy to: ? Specimen/Source: ?ThinPrep Pap Test, Cervix/Endocervix, processed on [employer] ThinPrep Imaging System, with manual evaluation Last Menstrual Period: ? spotting this wk Hormonal/Contracep tive Status: ? Intrauterine device Other: ? HPVA - HPV testing requested if ASC-US on the current ThinPrep Pap test. ? SPECIMEN ADEQUACY ? Satisfactory for Evaluation - transformation zone component present GENERAL CATEGORIZATION ? Negative for Intraepithelial Lesion or Malignancy ? Document reviewed and electronically signed by: ? WILL Menon(ASCP) ? Report Date: ??04/03/2007 12:12 End of Report [facility] 03/29/2007 04/01/2007 Tish Archibald MD PATHOLOGY ORDERABLES Performing Organization Address City/State/[facility] Co de Phone Number [facility] [address] [place] [address] documented in this encounter Visit Diagnoses Not on filedocumented in this encounter Care Teams Merchandise Stocker Relationship Specialty Start Date End Date Tish Archibald MD [address] [place] [phone] PCP - General 10/27/08 04/18/22 documented as of this encounter
--- OUTSIDE RECORDS SUMMARY | 2024-01-10 15:15 | XMS_ITS | Encounter Summary ---
Author Organization [facility] Address [address] [place] [address] Care Team Providers Care Early Head Start Teacher Name Role Phone Tish Poole MD Primary Care Provider [phone] Encounter Details Date Type Department Care Team (Late st Contact Info) Description 09/05/2004 Results Only [facility] - Maple conversion [address] [place] [address] Geraldine Ceja NP [address] [place] [phone] Social History Tobacco Use Types Packs/Day Years Used Date Smoking Tobacco: Never Assessed Sex and Gender Information Value Date Recorded Sex Assigned at Not on file Gender Identity Not on file Sexual Orientation Not on file documented as of this encounter Plan of Treatment Not on file documented as of this encounter Procedures Procedure Name Priority Date/Time Associated Diagnosis Comments CYTOPATHOLOGY Routine 09/05/2004 0:00 EDT documented in this encounter Results * CYTOPATHOLOGY (09/05/2004 0:00 EDT) Pathology Report: CYTOPATHOLOGY REPORT Reports generated via electronic interface contain original data; however they are lacking the format of the original report. Caution should be taken when reading/interpreti ng unformatted reports. Name: ? HALEY TURNER ? Accession #: ? [id number] : ? 1980 (Age: 24) ??F ?Collect Date: ? 09/05/2004 Location: ? [facility] ? Receive Date: ? 09/07/2004 Provider: ?GERALDINE CEJA LAMINATING MACHINE FEEDER Copy to: ? Specimen/Source: ?ThinPrep Pap Test, Cervix/Endocervix Last Menstrual Period: ? 08/24/04 Other: ? HPVA - HPV testing requested if ASC-US on the current ThinPrep Pap test. ? SPECIMEN ADEQUACY ? Satisfactory for Evaluation - transformation zone component present GENERAL CATEGORIZATION ? Negative for Intraepithelial Lesion or Malignancy ? Document reviewed and electronically signed by: ? Sarika Kincaid, SCT(ASCP) ? Report Date: ??09/13/2004 10:04 End of Report [facility] 09/05/2004 09/07/2004 Geraldine Ceja LAMINATING MACHINE FEEDER PATHOLOGY ORDERABLES Performing Organization Address City/State/[facility] Co de Phone Number [facility] [address] [place] [address] documented in this encounter Visit Diagnoses Not on filedocumented in this encounter Care Teams Early Head Start Teacher Relationship Specialty Start Date End Date Tish Poole MD [address] [phone] PCP - General 10/27/08 04/18/22 documented as of this encounter
--- OUTSIDE RECORDS SUMMARY | 2024-01-10 15:15 | XMS_ITS | Encounter Summary ---
Author Organization [facility] [place] [address] Care Team Providers Care Sizing Machine Tender Name Role Phone Marline Fortune MD Primary Care Provider [phone] Encounter Details Date Type Department Care Team (Latest Contact Info) Description 01/08/2015 12:15 AM EDT - 01/08/2015 11:59 PM EDT Hospital Encounter Radiology Library at [facility] [place] [address] Hong Rios MD [facility] [place] [address] Pain Discharge Disposition: Home Social History Tobacco Use Types Packs/Day Years Used Date Smoking Tobacco: Never Assessed Sex and Gender Information Value Date Recorded Sex Assigned at Not on file Gender Identity Not on file Sexual Orientation Not on file documented as of this encounter Medications at Time of Discharge Medication Sig Dispensed Refills Start Date End Date norgestimate-ethinyl estradiol (ORTHO TRI-CYCLEN, 28,) 0.18/0.215/0.25 mg-35 mcg (28) tablet 06/09/2004 06/22/2016 ibuprofen (ADVIL;MOTRIN) 600 mg tablet 06/22/2016 documented as of this encounter Plan of Treatment Not on file documented as of this encounter Procedures Procedure Name Priority Date/Time Associated Diagnosis Comments FILM LIBRARY STORAGE ONLY MR SPINE Routine 01/08/2015 12:15 AM EDT Pain documented in this encounter Results * Film Library- Storage only MR Spine (01/08/2015 12:15 AM EDT) Narrative [facility] - 11/12/2015 4:32 PM EDT This exam is for storage only and is auto-finalizing. Hong Rios MD IMG FILM LIBRARY O RDERABLES [place], [place] documented in this encounter Visit Diagnoses Diagnosis Pain Generalized pain documented in this encounter Care Teams Sizing Machine Tender Relationship Specialty Start Date End Date Marline Fortune MD [address] [place] [address] PCP - General Family Medicine 01/07/15 documented as of this encounter
--- OUTSIDE RECORDS SUMMARY | 2024-01-10 15:15 | XMS_ITS | Encounter Summary ---
[place] [address] Care Team Providers Care Munitions Factory Worker Name Role Phone Marline Fortune MD Primary Care Provider Reason for Referral * Consultation (Routine) - Closed Specialty Diagnoses / Procedures Referred By Contcintia t Referred To Contact Neurology Diagnoses Numbness of arm Marline Fortune MD [address] [place] [address] [facility] Neurology [address] [phone] Referral ID Status Reason Start Date Expiration Date V isits Requested Visits Authorized [id number] Closed Consult, Test & Treat PCP Updated and/or Approved 10/14/2021 10/14/2022 12 12 Encounter Details Date Type Department Care Team (Late st Contact Info) Description 10/14/2021 Transcribe Orders eDH Incoming Referrals [phone] Marline Fortune MD [address] [place] [phone] Numbness of arm Social History Tobacco Use Types Packs/Day Years [...] Schedule Referral to Neurology Outpatient Referral Routine Numbness of arm Ordered: 10/14/2021 documented as of this encounter Visit Diagnoses Diagnosis Numbness of arm Disturbance of skin sensation documented in this encounter Care Teams Munitions Factory Worker Relationship Specialty Start Date End Date Marline Fortune MD [address] [place] [address] PCP - General Family Medicine 01/07/15 documented as of this encounter
--- OUTSIDE RECORDS SUMMARY | 2024-01-10 15:15 | XMS_ITS | Encounter Summary ---
Author Organization [facility] [place] [address] Care Team Providers Care Elementary School Counselor Name Role Phone Marline Fortune MD Primary Care Provider Reason for Visit * Reason Comments Headache Encounter Details Date Type Department Care Team (Late st Contact Info) Description 11/23/2015 8:30 AM EDT Office Visit Neurology at [facility] [place] [phone] Hair Rowell MD [facility] [place] [address] Magdiel Thompson MD [facility] [place] [address] Chronic migraine without aura with status migrainosus, [...] * Patient Instructions* Magdiel Thompson MD - 11/23/2015 8:30 AM EDT Patient Instructions: Dr Magdiel Thompson, Headache Fellow [facility] 11/23/2015 Instructions: As further workup for your headaches we would like you to repeat your MRI head in oneyear to follow your pineal cyst. Stop propranolol. You should be cautious while driving or [...] headache returned in a few hours. Prevention: We will send a botox Prior authorization, you should limit your motrin use to less than2x per week, we would prefer you use alleve in place of motrin at this point, as motrin is more likely to cause medication overuse headaches. For mild to moderate Headaches: You may also take Atarax (Hydroxyzine) 25mg every 8 hours. For severe headaches: When you sweet pickled fruit maker your migranal you should stop taking sumatriptan, you cannotmix sumatriptan with migranal. Migranal Instructions: - Prime the pump 4 times - Place head down (usually in a sitting position, head between legs) - spray one spray per nostril, while holding the opposite nostril closed, do not sniff - wait 15 minutes and the repeat if you are unable to afford migranal because of your insurance, you should go to [email or web address] click on savings and fill out information for a coupon to reduce the fink to between $35 and $5 for generic (total of 4 sprays should be delivered - 2 per nostril) take with Vistaril 25mg Do Not exceed 4 sprays per 24 hours (2mg total there are 0.5 mg per spray) Limit to 2 days per week documented in this encounter Progress Notes * Hair Rowell MD - 11/23/2015 8:30 AM EDT Attending Note 9-6-16 I saw and evaluated the patient with Dr. Thompson. I have reviewed the fellow's history during the visit and I agree with the details as written. The assessment and plan were formulated in discussionwith me at the time of the visit and I agree with them as documented. Discussed at length with patient about diagnostic considerations. Explained diagnosis and treatment. Patient understands and accep ts our plan. Briefly, pt with chronic post-traumatic THOMPSON and previously, migraine without aura. This patient alsomeets the FDA criteria for Chronic Migraine, with headache at least 15 days per month, at least 4 hours per day (hers are continuous). She has has had lack of success with each of the big three anti-m igraine prevention categories, antidepressants, anti-epilepsy drugs, and antihypertensives. The only FDA approved medication for Chronic Migraine is Botox, and we will submit for this medication for her. PRN will be DHE NS, back up almotriptan. Hair Rowell MD * Magdiel Thompson MD - 11/23/2015 8:30 AM EDT Neurology Headache evaluation Patient name: Mj Turner Date of : 1980 PCP: MARLINE FORTUNE MD CC: headaches HPI: Mj Turner is a RH 35-year-old female past medical history of postconcussive syndrome migraines (approx. 1 per month) who is being seen in headache clinic today for initial evaluation of headaches. Patient was refered by Ninfa Pantoja. Unfortunatly she was 40 minutes late for this 90 minute appointment. I have been asked to see Mj Turner in the context of a headache specialist. Per initial review of records, patient reported [...] by a neurologist, had offered admission for [facility] protocol, however there were early childhood education coordinator issues. 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 SH: currently out of work. Medication Trials (Trials in bold): *TCA -Amitriptyline *AED -Topamax *BB/Antihypertensives - Propranolol *CCB - Verapamil *Ergots -DHE/Migrainal *Antiemetics - prochlorperazine (compazine) *NSAIDS - Fioricet - Naproxen - Toradol - Indomethacin - Tylenol - Aspirin - Excetrin migraine - ibuprofen - meloxicam *Triptans - Imitrex *Supplements - Magnessium - CoQ10 - B2 Past Medical History: Patient Active Problem List Diagnosis Code ??? Concussion with brief LOC S06.0X9A ??? Migraines G43.909 Medications: Medications 11/23/15 0912 Medication Sig Taking? doxycycline (VIBRAMYCIN) 100 mg Capsule Take 100 mg by mouth 2 times daily. Yes clindamycin (CLINDAGEL) 1 % Gel Apply topically 2 times daily. Yes albuterol (PROVENTIL HFA) 90 mcg/actuation HFA Aerosol Inhaler Inhale 2 puffs into the lungs every 4 hours as needed for Wheezing. Use with spacer Yes omeprazole (PRILOSEC) 20 mg Capsule, Delayed Release(E.C.) Take 20 mg by mouth daily. While using ibuprofen Yes lidocaine (XYLOCAINE) 2 % Gel Apply topically as needed. Apply small amount to back of head and neck 4-6 times daily as needed for headaches and neck pain Yes norgestimate-ethinyl estradiol (ORTHO TRI-CYCLEN, 28,) 0.18/0.215/0.25 mg-35 mcg (28) tablet Yes ibuprofen (ADVIL;MOTRIN) 600 mg tablet Yes hydrOXYzine (ATARAX) 25 mg Tablet Take 1 tablet by mouth every 8 hours as needed (headaches.). dihydroergotamine (MIGRANAL) 0.5 mg/pump act. (4 mg/mL) [place], Non-Aerosol 1 spray by Nasal route as needed for Migraine. Wait 15 minutes then repeat one spray in each nostril, no more than 4 sprays in a day. Allergies Allergen Reactions ??? Latex ??? Chantix [...] Not on file ??? Alcohol use Yes ??? Drug use: No ??? Sexual activity: Not on file Other Topics Concern ??? Not on file Social History Narrative ??? No narrative on file Review of systems: Positive responses are bolded General: denies weight loss or gain, night sweats, fatigue, lethargy, change in sleep pattern, change in appetite, fever, Poor sleep Eyes: denies vision changes, blurred vision, double vision, scotoma, floaters, bright lights when headache gets bad ENT: denies rhinorrhea, epistaxis, ear pain, tinnitus, CV: denies cp/sob, pnd, orthopnea, edema, palpitations, LOC RESP: denies cough, sputum, wheeze, SOB, haemotysis GI: denies, v/d, abdominal pain, dysphagia, nausea Neuro: denies paresthesias, allodynia, numbness, clumsiness, speech problems Psych: denies depression, trouble concentrating, lack of energy MSK: denies, stiffness, joint swelling, arthritis, msk pain Physical Exam: Vitals: BP: 127/77 HR 98 Physical Exam General: alert, NAD HEENT: oral mucosa moist, no thrush, no carotid bruits, no thyromegaly, no lymphadenopathy MSK: minor ZUHAIR tenderness bilaterally Neuro exam: MSE: awake alert interactive and attentive, oriented to person, place, time, recent and remote memory intact, attention and concentration wnl for age, language fluent with no dysarthria or aphasia CN: VFFTC, pupils 3->2ou, EOMI, symmetric brow and smile, tongue midline, symmetric palate elevation, hears finger rub bilaterally, SCM/Trap 5/5, symmetric sensation to V1-3 Motor: No tremor, normal bulk and tone Right Left Delt 5/5 5/5 Bicep 5/5 5/5 tricep 5/5 5/5 Wrist EXT 5/5 5/5 Wrist flex 5/5 5/5 Finger flex 5/5 5/5 Hip flexor 5/5 5/5 Knee ext 5/5 5/5 Knee flex 5/5 5/5 Plantar flex 5/5 5/5 Dorsi flex 5/5 5/5 Sensation: intact light touch Coordination: intact finger nose finger Gait: narrow based and steady Labs: No results found for this or any previous visit (from the past 24 hour(s)). Diagnostic Tests and Imaging: MRI 02/2015 ([facility]): MRI did show findings consistent with apineal [...] several abortive medications which have been suboptimal. There does not seem to be a significant medication overuse component at play here, however in the past there may have been. At this point we would treat her for chronic migraine, we will start Botox, Migranal Atarax and naproxen as needed for abortive therapy. 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 We will submit a PA for Botox, we did have an extensive discussion about the bettina efits risks of Botox, did give her the [place] [employer] handout for both chronic headache and Botox, and we'll submit a prior authorization for this. *IMP: - chronic migraine without aura - post traumatic headache - post concussive syndrome. *PLAN - migranal, if she is unable to get this would do almotriptan. - atarax and naproxen as needed for abortive therapy - Repeat MRI in February 2016, to follow her pineal cyst - Botox prior authorization - headache diary - At this point it is not likely the propranolol will be of benefit to her, and we did recommend stopping - Follow up with me in 4 weeks for Botox Patient was seen with Dr Rowell, I spent a total of 60 minutes with this patient in face to face evaluation and diagnostic/therapeutic planning. This patient now has daily headaches, she meets the criteria for chronic migraine as she has more than 15 days of headache a month, for more than 4 hours. She has had trials of each of the 3 major categories for migraine prophylaxis, including amitriptyline from the antidepressant category, Topamax from the antiepileptic care category, verapamil from the antihypertensive category. Botox is FDA approved for chronic migraine and I believe we should proceed with Botox therapy in her case. Magdiel Thompson MD Headache Fellow [facility] Neurology Patient Instructions: Dr Magdiel Thompson, Headache Fellow [facility] 11/23/2015 Instructions: As further workup for your headaches [...] headache returned in a few hours. Prevention: We will send a botox Prior authorization, you should limit your motrin use to less than2x per week, we would prefer you use alleve in place of motrin at this point, as motrin is more likely to cause medication overuse headaches. For mild to moderate Headaches: You may also take Atarax (Hydroxyzine) 25mg every 8 hours. For severe headaches: When you sweet pickled fruit maker your migranal you should stop taking sumatriptan, [...] of your insurance, you should go to [email or web address] click on savings and fill out information [...] days per week documented in this encounter Plan of Treatment Not on file documented as of this encounter Visit Diagnoses Diagnosis Chronic migraine without aura with status migrainosus, not intractable Chronic migraine without aura, without mention of intractable migraine with status migrainosus documented in this encounter Care Teams Elementary School Counselor Relationship Specialty Start Date End Date Marline Fortune MD [address] [place] [address] PCP - General Family Medicine 01/07/15 documented as of this encounter
--- OUTSIDE RECORDS SUMMARY | 2024-01-10 15:15 | XMS_ITS | Encounter Summary ---
Author Organization [facility] Address [address] [place] [address] Care Team Providers Care Battery Tester And Repairer Name Role Phone Tish Poole MD Primary Care Provider [phone] Marline Fortune MD Primary Care Provider [phone] Encounter Details Date Type Department Care Team (Latest Contact Info) Description 04/26/2020 Lab Requisition [facility] Pathology & Laboratory Medicine - [facility] [address] [place] [address] Marline Fortune MD [address] [place] [address] Encounter for gynecological examination (general) (routine) without abnormal findings Social History Tobacco Use Types Packs/Day Years Used Date Smoking Tobacco: Never Assessed Sex and Gender Information Value Date Recorded Sex Assigned at Not on file Gender Identity Not on file Sexual Orientation Not on file documented as of this encounter Plan of Treatment Not on file documented as of this encounter Procedures Procedure Name Priority Date/Time Associated Diagnosis Comments PAP TEST Today 04/22/2020 15:20 EST Encounter for gynecological examination (general) (routine) without abnormal findings HPV DNA DETECTION WITH GENOTYPING, PCR Today 04/22/2020 15:20 EST Encounter for gynecological examination (general) (routine) without abnormal findings documented in this encounter Results * HUMAN PAPILLOMAVIRUS (HPV) DETECTION-HIGH RISK TYPES (04/22/2020 15:20 EST) HPV other High Risk types, PCR Negative Negative 05/04/2020 15:27 EST [facility] Comment:No E6 or E7 mRNA is detected from HPV types 16,18,31,33,35,39,45,51,52,56,58,59,66, and 68 by resin mixer mediated amplification. Papanicolaou smear specimen (specimen) CERVIX UTERI STRUCTURE / Unknown 04/22/2020 15:20 EST 04/29/2020 15:47 EST Marline Fortune MD MICROBIOLOGY - GENER AL ORDERABLES [facility] [address] [place] [address] * PAP TEST (04/22/2020 15:20 EST) Specimens A. Cervix and/or Endocervix , ThinPrep Imaging System with Manual Evaluation 05/04/2020 15:27 [facility] Specimen Adequacy Satisfactory for Evaluation - transformation zone component present 05/04/2020 15:27 [facility] General Categorization Negative for intraepithelial lesion or malignancy 05/04/2020 15:27 [facility] Attestation . 05/04/2020 15:27 [facility] at 1527 Clinical History See below 05/04/19 15:27 [facility] HPV The result for the Human Papillomavirus (HPV) Detection-High Risk Types is Negative. No E6 or E7 mRNA is detected from HPV types 16,18,31,33,35,39 ,45,51,52,56,58,5 9,66, and 68 by resin mixer mediated amplification.Catherine ting was performed on specimen [id number] and was resulted on 05/04/2020 1520 EST by CARLOS EDUARDO, LAB INSTRUMENT RESULTS IN 05/04/2020 15:27 [facility] Performing Lab [facility] 05/04/2020 15:27 [facility] Scanned Images 05/04/2020 15:27 [facility] Papanicolaou smear specimen (specimen) CERVIX UTERI STRUCTURE / Unknown 04/22/2020 15:20 EST 04/26/2020 14:34 EST Marline Fortune MD PATHOLOGY ORDERABLES [facility] [address] [place] [address] documented in this encounter Visit Diagnoses Diagnosis Encounter for gynecological examination (general) (routine) without abnormal findings documented in this encounter Care Teams Battery Tester And Repairer Relationship Specialty Start Date End Date Tish Poole MD [address] [place] [id number] PCP - General 10/27/08 04/18/22 Marline Fortune MD [address] [place] [id number] PCP - General 04/19/22 documented as of this encounter
--- OUTSIDE RECORDS SUMMARY | 2024-01-10 15:15 | XMS_ITS | Encounter Summary ---
Author Organization [facility] Address [address] [place] [address] Care Team Providers Care Director Distribution Name Role Phone Marline Fortune MD Primary Care Provider [phone] Encounter Details Date Type Department Care Team (Late st Contact Info) Description 05/05/2022 Lab Requisition [facility] Pathology & Laboratory Medicine - [facility] [address] [place] [address] Marline Fortune MD [address] [place], [place] [id number] Encounter for other general examination Social History Tobacco Use Types Packs/Day Years Used Date Smoking Tobacco: Never Assessed Sex and Gender Information Value Date Recorded Sex Assigned at Not on file Gender Identity Not on file Sexual Orientation Not on file documented as of this encounter Plan of Treatment Not on file documented as of this encounter Procedures Procedure Name Priority Date/Time Associated Diagnosis Comments SURGICAL PATHOLOGY Today 05/05/2022 9: 30 EST Encounter for other general examination documented in this encounter Results * SURGICAL PATHOLOGY (05/05/2022 9:30 EST) Note to Patient The following pathology results have been interpreted by your pathologist and may be available to you before your health provider has had the opportunity to review them. Please allow time for your provider to receive these results and explore management options, if applicable. 05/09/2022 13:55 EST [facility] Final Diagnosis A. SKIN OF ANKLE, LEFT, PUNCH BIOPSY: - Reactive epidermal hyperplasia and hyperkeratosis. See comment. 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 There is no appreciable inflammation. 05/09/2022 13:55 [facility] Attestation By the signature below, the attending physician certifies that they have 1) personally conducted a gross and/or microscopic examination of the described specimen(s), and/or personally interpreted the results of laboratory testing of the described specimen(s), and 2) personally rendered or confirmed the above diagnosis. 05/09/2022 13:55 [facility] at 1355 Microscopic Description There is compact orthohyperkeratosis . The stratum corneum, in some areas, has a somewhat ragged appearance. The epidermis shows mild hyperplasia with irregular rete ridge pattern. The keratinocytes have reactive changes with an accentuated granular layer. There is no appreciable spongiosis in the interface is intact. The dermis is relatively unremarkable with minimal inflammation consisting of rare lymphomononuclear cells. Multiple deeper sections have similar features. No fungal organisms are identified on sections. With PAS-diastase stain. 05/09/2022 13:55 [facility] Clinical History Chronic lichenification bilateral ankles and elbows 05/09/2022 13:55 [facility] Gross Description A. Received in formalin labelled with proper patient identification (initials Y, C) and L ankle is a punch biopsy of rodríguez-pink skin (0.3 cm in diameter and 0.2 cm in thickness). The margin is inked blue and the specimen is submitted intact in A1. Mary Waterman 05/08/2022 5:04 05/09/2022 13:55 [facility] Performing Lab [facility] 05/09/2022 13:55 [facility] Scanned Images 05/09/2022 13:55 [facility] Tissue TISSUE SPECIMEN FROM SKIN / Unknown 05/05/2022 9:30 EST 05/05/2022 21:11 EST Marline Fortune MD PATHOLOGY ORDERABLES [facility] [address] [place] [address] documented in this encounter Visit Diagnoses Diagnosis Encounter for other general examination documented in this encounter Care Teams Director Distribution Relationship Specialty Start Date End Date Marline Fortune MD [address] [place] [address] PCP - General 04/19/22 documented as of this encounter
--- OUTSIDE RECORDS SUMMARY | 2024-01-10 15:15 | XMS_ITS | Encounter Summary ---
Author Organization [facility] [place] [address] Care Team Providers Care Credit Representative Name Role Phone Marline Fortune MD Primary Care Provider [phone] Reason for Visit * Consultation (Routine) - Closed Specialty Diagnoses / Procedures Referred By Contcintia t Referred To Contact Rheumatology Diagnoses Psoriatic arthritis Marline Fortune MD [address] [place] [address] [facility] Rheumatology [address] [place] [phone] Referral ID Status Reason Start Date Expiration Date V isits Requested Visits Authorized [id number] Closed Consult, Test & Treat PCP Updated and/or Approved 10/14/2021 10/14/2022 6 6 Encounter Details Date Type Department Care Team (Late st Contact Info) Description 11/30/2021 1:00 PM EDT Office [place] [address] Kieran Hauser MD [facility] [place] [address] Aftab Velarde MD [facility] [place] [address] Numbness and tingling in both hands Social History Tobacco Use Types Packs/Day Years [...] Sign Reading Time Taken Comments Blood Pressure 146/80 11/30/2021 1:07 PM EDT Pulse 109 11/30/2021 1:07 PM EDT Temperature 36.2 ??C (97.1 ??F) 11/30/2021 1:07 PM ED T Respiratory Rate - - Oxygen Saturation 99% 11/30/2021 1:07 PM EDT Inhaled Oxygen Concentration - - Weight 103.4 kg (228 lb) 11/30/2021 1:07 PM EDT self reported Height 167.6 cm (5' 6) 11/30/2021 1:07 PM EDT Body Mass Index 36.8 11/30/2021 1:07 PM EDT documented in this encounter Progress Notes * Aftab Velarde MD - 11/30/2021 1:00 PM EDT Rheumatology Outpatient Consultation Note Reason for Consult: The patient is seen at the request of Marline Fortune for evaluation and treatment of arthralgia History of Present Illness: Mj Turner is a 41 y.o. female with past medical history of migraine who presents today for evaluation of arthralgia. She complains of lower back pain which she states started when she was 7 yrs old and has progressedsince then, has L sided neck pain which started in December, has progressed, also has burning pain and numbness in her hands which radiates upto the elbows, mostly B/L 4th and 5th digit (R>L), and intermittent numbness in her B/L feet. Notes COVID-19 infection around this time. She has been on 3-4 short courses of prednisone since January, which helps somewhat with the neck and back pain but no relief with numbness. States she has subjective weakness in her hands as well. She endorses traumato her neck many years ago, but no other trauma. She has received occipital nerve blocks and botox in 2016 for migraine by neurology. Saw dermatology recently (10/27/2021): No signs of Psoriasis in nails or skin. Was diagnosed with Cystic Acne and started on low dose spironolactone. ROS: General (-)fevers, (-)chills, (-)night sweats, (-)wt loss/gain. HEENT (-)inflammatory eye disease, (-)vision loss, (-)epistaxis, (-)bleeding gums, (-)oral ulcers, (-)dry eyes, (-)dry mouth, (-)dysphagia, (-)GERD, (-)photo sensitivity CVS (-)chest pain, (-)palpitations Pulm (-)shortness of breath, (-)[place], (-)wheezes, (-)cough, (-)pleuritic pain GI (-)N/V, (-)abdominal pain, (-)hematochezia (-)hematuria, (-)dysuria MS (-)muscle weakness, (-)paralysis, (+)joint pain Endo (-)thyroid disorders, (-)diabetes Neuro (-)focal weakness, (-)paresthesias, (-)gait instability. Skin (-)Raynaud's, + rash Psych (-) mood disorder. 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 Cardiovascular: RR, (-)murmurs, rubs, or gallops. Lungs: Clear to auscultation bilaterally. (-)R/R/W Back: Nontender over the spine and costovertebral angles bilaterally. Neuro: Alert and oriented x3. Strength 5/5, numbness B/L 4, 5th digits, no motor weakness, negativetinel and Phalen B/L wrist, + tingling on tapping behind both elbows Extremities: Shoulders: FROM, non-tender to palpation Elbows:FROM, (-)pain, (-)nodules Wrists: FROM, no swelling, non-tender Hands: No synovitis, no MCP compression tenderness, full claw and fist. No nail pitting Hips: FROM Knees: (-)effusions, non-tender ROM Ankles: FROM, non-tender, no swelling Feet: no MTP compression tenderness, no toe splaying Laboratory Data: 10/04/2021 Lyme, tick panel negative TSH 1.64, vitamin B12 657, CRP 0.48 (normal is 0-0.3), ESR 21 Studies: (From media) MRI cervical spine (09/27/2021) Impression -Stable small diffuse disc bulge at C5-C6. No central spinal canal or neural foraminal stenosis seen in the cervical spine. -No central spinal canal or neural foraminal stenosis is seen in the thoracic spine. No focal disc herniation is seen on thoracic spine. -Normal signal in the cervical and thoracic spinal cord Impression: Mj Turner is a 41 y.o. female with past medical history of migraine who presents today for evaluation of arthralgia. She has neuropathic pain in ulnar nerve distribution and numbness on exam in the same distribution along with tinel sign behind medial epicondyle. She does not have evidence of psoriasis or inflammatory arthritis on exam. Recently saw dermatology and was diagnosed with cystic acne. 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 MRI Cervical spine with small diffusedisc bulge at C5-C6. 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 Would recommend EMG and NCV and consider neurology referral depending on the results. [place], spoke with neurology office, wait time is long and patient prefers to get it done closer to home. Will give information to our secretaries to hopefully set her up for an EMG/NCVcloser to her home. Recommendations: - recommend EMG/NCV - recommend testing for DM RTC PRN The patient was seen and discussed with Murtaza Velarde MD Rheumatology Fellow Pager: [phone] CC: Marline Fortune ATTENDING ADDENDUM The patient's history was reviewed, and I interviewed and examined the patient with Dr. Aftab Velarde. I agree with his summary, findings, and plan. Bilateral UE sensory neuropathy in ulnar or C8 distribution, but with unimpressive C-spine MRI. Likely cubital tunnel syndrome. No evidence of underlying CTD or inflammatory arthritis. Conservative measures. We'll expedite neurology referral, including EMGs. Kieran Hauser MD Staff Missile Inspector documented in this encounter Plan of Treatment Not on file documented as of this encounter Visit Diagnoses Diagnosis Numbness and tingling in both hands documented in this encounter Care Teams Credit Representative Relationship Specialty Start Date End Date Marline Fortune MD [address] [place] [address] PCP - General Family Medicine 01/07/15 documented as of this encounter
--- OUTSIDE RECORDS SUMMARY | 2024-01-10 15:15 | XMS_ITS | Encounter Summary ---
Author Organization [facility] Address [facility] [place] [address] Care Team Providers Care Cardiopulmonary Technologist Name Role Phone Marline Fortune MD Primary Care Provider [phone] Encounter Details Date Type Department Care Team (Late st Contact Info) Description 12/23/2015 [place] [address] Yanci Guzman MSW Social History Tobacco Use Types Packs/Day Years Used Date Smoking Tobacco: Every Day Cigarettes Alcohol Use Standard Drinks/Week Comments No 0 (1 standard drink = 0.6 oz pur e alcohol) Sex and Gender Information Value Date Recorded Sex Assigned at Not on file Gender Identity Not on file Sexual Orientation Not on file documented as of this encounter Progress Notes * Yanci Guzman MSW - 12/23/2015 8:46 AM EDT [facility] [employer]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
--- OUTSIDE RECORDS SUMMARY | 2024-01-10 15:15 | XMS_ITS | Encounter Summary ---
Author Organization [facility] Address [address] [place] [address] Care Team Providers Care Contracts Intern Name Role Phone Tish Archibald MD Primary Care Provider [phone] Encounter Details Date Type Department Care Team (Late st Contact Info) Description 06/24/2001 Results Only [facility] - Map conversion [address] [place] [address] Tish Archibald MD [address] [phone] Social History Tobacco Use Types [...] Priority Date/Time Associated Diagnosis Comments CYTOPATHOLOGY Routine 06/24/2001 0:00 EDT documented in this encounter Results * CYTOPATHOLOGY (06/24/2001 0:00 EDT) Pathology Report: CYTOPATHOLOGY REPORT Reports generated via electronic interface contain original data; however they are lacking the format of the original report. Caution should be taken when reading/interpreti ng unformatted reports. Name: ? BUDDY HALEY ? Accession #: ? [id number] : ? 1980 (Age: 21) ??F ?Collect Date: ? 06/24/2001 Location: ? [facility] ? Receive Date: ? 06/26/2001 Provider: ?TISH ARCHIBALD MD Copy to: ? Specimen/Source: ?Conventional Pap Test, Cervix/Endocervix Last Menstrual Period: ? 03/02 ? SPECIMEN ADEQUACY ? Satisfactory for Evaluation - transformation zone component present GENERAL CATEGORIZATION ? Negative for Intraepithelial Lesion or Malignancy ? Document reviewed and electronically signed by: ? WILL Schafer(ASCP) ? Report Date: ??06/28/2001 15:45 End of Report PINA ZIMMER 06/24/2001 06/26/2001 Tish Archibald MD PATHOLOGY ORDERABLES Performing Organization Address City/State/[facility] Co de Phone Number PINA ZIMMER [address] [place] [address] documented in this encounter Visit Diagnoses Not on filedocumented in this encounter Care Teams Contracts Intern Relationship Specialty Start Date End Date Tish Archibald MD [address] [place] [phone] PCP - General 10/27/08 04/18/22 documented as of this encounter
--- OUTSIDE RECORDS SUMMARY | 2024-01-10 15:15 | XMS_ITS | Encounter Summary ---
Author Organization [facility] [place] [address] Care Team Providers Care Mental Health Assistant Name Role Phone Marline Fortune MD Primary Care Provider [phone] Encounter Details Date Type Department Care Team (Late st Contact Info) Description 01/07/2015 9:06 PM EDT - 01/07/2015 11:59 PM EDT Hospital Encounter Radiology Library at [facility] [place] [place] [phone] [facility] Tem[facility] Pain Discharge Disposition: Home Social History Tobacco [...] Associated Diagnosis Comments FILM LIBRARY STORAGE ONLY CT SPINE Routine 01/07/2015 9:10 PM EDT Pain documented in this encounter Results * Film Library- Storage Only CT Spine (01/07/2015 9:10 PM EDT) Narrative [facility] - 01/07/2015 9:06 PM EDT See PACS for result report. [facility] FILM LIBRARY ORD ERABLES [place], [place] documented in this encounter Visit Diagnoses Diagnosis Pain Generalized pain documented in this encounter Care Teams Mental Health Assistant Relationship Specialty Start Date End Date Marline Fortune MD [address] [place] [address] PCP - General Family Medicine 01/07/15 documented as of this encounter
--- OUTSIDE RECORDS SUMMARY | 2024-01-10 15:15 | XMS_ITS | Encounter Summary ---
Author Organization [facility] Address [facility] [place] [address] Care Team Providers Care Sales Representative Girls' Apparel Name Role Phone Marline Fortune MD Primary Care Provider [phone] Encounter Details Date Type Department Care Team (Latest Contact Info) Description 02/17/2015 - 02/17/2015 11:59 PM EST Hospital Encounter Radiology Library at [facility] [place] [address] Hong Rios MD [facility] [place] [address] Pain Discharge Disposition: Home Social History Tobacco [...] Diagnosis Comments FILM LIBRARY STORAGE ONLY MR HEAD Routine 02/17/2015 12:00 AM EST Pain documented in this encounter Results * Film Library- Storage only MR Head (02/17/2015 12:00 AM EST) Narrative RAD - 11/12/2015 4:25 PM EDT This exam is for storage only and is auto-finalizing. Hong Rios MD IMG FILM LIBRARY O RDERABLES [place], [place] documented in this encounter Visit Diagnoses Diagnosis Pain Generalized pain documented in this encounter Care Teams Sales Representative [employer]arel Relationship Specialty Start Date End Date Marline Fortune MD [address] [place] [address] PCP - General Family Medicine 01/07/15 documented as of this encounter
--- OUTSIDE RECORDS SUMMARY | 2024-01-10 15:15 | XMS_ITS | Encounter Summary ---
Author Organization [facility] Address [address] [place] [address] Care Team Providers Care Stylist Apprentice Name Role Phone Unavailable Primary Care Provider Unavailabl e Encounter Details Date Type Department Care Team (Late st Contact Info) Description 10/20/2008 Orders Only [facility] Laboratory Services - [facility] ([facility] [address] [place], [place] [address] Geraldine Ceja, KLARISSA [address] [address] Social History Tobacco Use Types Packs/Day Years Used Date Smoking Tobacco: Never Assessed Sex and Gender Information Value Date Recorded Sex Assigned at Not on file Gender Identity Not on file Sexual Orientation Not on file documented as of this encounter Plan of Treatment Not on file documented as of this encounter Procedures Procedure Name Priority Date/Time Associated Diagnosis Comments HPV DETECTION, HIGH RISK TYPES Routine 10/20/2008 15:45 EDT CYTOPATHOLOGY Routine 10/20/2008 0:00 EDT documented in this encounter Results * HUMAN PAPILLOMA VIRUS DNA TEST (10/20/2008 15:45 EDT) Specimen Description Cervix, ThinPrep vial [facility] Result Positive for one or more of HPV types 16,18,31,33,35 ,39,45,51,52,5 6,58,59, or 68. These high/intermedi ate risk HPV types are associated with dysplasia and some cervical cancers. [facility] Report Status Final 11/03/2008 [facility] 10/20/2008 15:4 5 EDT 10/27/2008 10:49 EDT Geraldine Ceja NP MICROBIOLOGY - GENER AL ORDERABLES [facility] [address] [place] [address] * CYTOPATHOLOGY (10/20/2008 0:00 EDT) Pathology Report: CYTOPATHOLOGY REPORT ? Reports generated via electronic interface contain original data; ? however they are lacking the format of the original report. ? Caution should be taken when reading/interpreti ng unformatted reports. ? Name: ? HALEY TURNER ? Accession #: ? [id number] ? : ? 1980 (Age: 28) ??F ?Collect Date: ? 10/20/2008 ? Location: ? [facility] ? Receive Date: ? 10/22/2008 ? Provider: ?GERALDINE W BESCH TRADING ANALYST ? Copy to: ? Specimen/Source: ?Pap Test, Cervix/Endocervix, ThinPrep Imaging System ? with manual evaluation ? Last Menstrual Period: ? 2 months ago ? Hormonal/Contracep tive Status: ? Intrauterine device ? Other: ? HPVA - HPV testing requested if ASC-US on the current ThinPrep Pap test. ? SPECIMEN ADEQUACY ? Satisfactory for Evaluation ? - transformation zone component present ? GENERAL CATEGORIZATION ? Epithelial Cell Abnormality ? INTERPRETATION ? Squamous Cell Abnormality - Atypical squamous cells, undetermined ? significance (ASC-US). ? EDUCATIONAL NOTES/RECOMMENDATI ONS ? [facility] recommends following the 2006 Consensus Guidelines for the Management of Women with Abnormal Cervical Cancer Screening Tests (JLGTD, ? 2007;11(4):201-222 ). ??Consensus guidelines are available online at ? www.ASCCP.org. ? Document reviewed and electronically signed by: ? YOUSIF GAUTHIER MD [facility] ? Report Date: ??10/26/2008 12:52 ? End of Report ? [facility] 10/20/2008 10/22/2008 Geraldine Ceja TRADING ANALYST PATHOLOGY ORDERABLES [facility] [address] [place] [address] documented in this encounter Visit Diagnoses Not on filedocumented in this encounter
--- OUTSIDE RECORDS SUMMARY | 2024-01-10 15:15 | XMS_ITS | Clinical Summary ---
Author Organization [facility] Address [address] [place] [address] Care Team Providers Care Technical Services Specialist Name Role Phone Marline Fortune MD Primary Care Provider [phone] Social History Tobacco Use Types Packs/Day Years Used Date Smoking Tobacco: Never Assessed Sex and Gender Information Value Date Recorded Sex Assigned at Not on file Gender Identity Not on file Sexual Orientation Not on file Plan of Treatment Health Maintenance Due Date Last Done Comments Hepatitis C Screen 1980 Hepatitis B Vaccine (1 of 3 - 19+ 3-dose series) 06/26 COVID-19 Vaccine ( season) 2022 Care Teams Technical Services Specialist Relationship Specialty Start Date End Date Marline Fortune MD [address] [place] [address] PCP - General 04/19/22
--- OUTSIDE RECORDS SUMMARY | 2024-01-10 15:15 | XMS_ITS | Encounter Summary ---
Author Organization [facility] Address [facility] [place] [address] Care Team Providers Care Silk Screen Layout Drafter Name Role Phone Marline Fortune MD Primary Care Provider Reason for Visit * Consultation (Routine) - Closed Specialty Diagnoses / Procedures Referred By Contcintia t Referred To Contact Dermatology Diagnoses Psoriasis Cystic acne Marline Fortune MD [address] [place] [address] [facility] Dermatology [address] [place] [address] Referral ID Status Reason Start Date Expiration Date V isits Requested Visits Authorized [id number] Closed Consult, Test & Treat PCP Updated and/or Approved 07/09/2021 07/09/2022 12 12 Encounter Details Date Type Department Care Team (Late st Contact Info) Description 10/27/2021 4:00 PM EDT Office Visit Dermatology at [facility] [address] [place] [id number] Ad Orourke MD [facility] [address] [place] [address] Arthralgia, unspecified joint Social History Tobacco Use Types Packs/Day Years [...] as of this encounter Progress Notes * Ad Orourke MD - 10/27/2021 4:00 PM EDT Images from the original note were not included. DEPARTMENT OF DERMATOLOGY Medical Dermatology Clinic Provider: Ad Orourke MD Patient's preferred name Mj Preferred contact method for results [x]Phone []myD-H []Letter Detailed phone message OK? Yes Past Medical History Date, location, treatment Melanoma N Dysplastic nevi N SCC N BCC N AKs N Family History Details Melanoma N NMSC N Other relevant family history N History of Present Illness: Mj Turner is a 41 y.o. Patient is referred to the clinic at the request of Marline Fortune for psoriasis and cystic acne. She is currently just using a pumice stoneon her face. She states that her psoriasis is very mild today. She is also applying a pumice stone to that as well. Her PCP is trying to diagnose her with psoriatic arthritis but needs a clinical cutaneous psoriasis diagnosis first. She is currently on prednisone 10 mg daily. Review of Systems: General: Feeling well. Skin: No other skin concerns. Medications: Reviewed in eD-H Allergies: Reviewed in eD-H Skin Examination: Focused skin examination of the bilateral arms, ankles, face, and scalp was normal with the exception of the findings below. Assessment/Plan #. Arthrlagias - Not pitting no onycholysis no intergluteal pinking. Some scaling seen on scalp, noplaques seen on exam. No signs of Psoriasis in nails or skin. Discussed potential of PsA w/o Psoriasis. Pt currently on oral steroids. Discussed psoriasis can clear with oral steroids, but nail findings should remain longer. -workup with PCP for RA w/o positive serologies - Recommended imaging of the hands to rule out psoriatic arthritis. No signs of psoriasis on the skin or nail involvement #. Cystic Acne - scattered inflammatory papules on the bilateral cheeks -discussed options and recommend starting low dose spironolactione Rx: Spironolactone start at 50mg daily; plan to titrate to up to 200mg Daily if needed -Common side effects discussed with pt including menstrual irregularities, breast tenderness, minorgastrointestinal symptoms & orthostatic hypotension No personal hx of Breast Cancer RTC: 12 weeks for acne follow up []Note routed to clinical secretary []Recall placed in scheduling system [x]Appointment scheduled at checkout Scribe attestation: ALBINA Burnett and ALBINA Pizarro have performed the documentation for this encounter in the presence of and acting as a scribe for Ad Orourke MD. I performed the above scribed service and agree with the accuracy of the documentation in this encounter. Reviewed and signed by: Ad Orourke MD Dermatology [facility] documented in this encounter Plan of Treatment Not on file documented as of this encounter Visit Diagnoses Diagnosis Arthralgia, unspecified joint documented in this encounter Care Teams Silk Screen Layout Drafter Relationship Specialty Start Date End Date Marline Fortune MD [address] [place] [address] PCP - General Family Medicine 01/07/15 documented as of this encounter
--- OUTSIDE RECORDS SUMMARY | 2024-01-10 15:15 | XMS_ITS | Encounter Summary ---
Author Organization [facility] Address [facility] [address] [place] [address] Care Team Providers Care Leather Softener Name Role Phone Marline Fortune MD Primary Care Provider [phone] Reason for Referral * High Dollar Medication (Routine) - Closed Specialty Diagnoses / Procedures Referred By Contac t Referred To Contact Neurology Diagnoses Chronic migraine without aura with status migrainosus, not intractable Procedures Auth Request for Medication TC ONABOTULINUMTOXINA, 1 UNIT, INJECTION Magdiel Thompson MD [facility] [place] [address] [facility] Neurology [address] [place] [address] Referral ID Status Reason Start Date Expiration Date V isits Requested Visits Authorized [id number] Closed Consult, Test & Treat 12/23/2015 12/22/2016 4 4 Encounter Details Date Type Department Care Team (Late st Contact Info) Description 02/25/2016 [place] [address] Magdiel Thompson MD [facility] [place] [address] Chronic migraine without aura with status migrainosus, [...] migrainosus documented in this encounter Care Teams Leather Softener Relationship Specialty Start Date End Date Marline Fortune MD [address] [place] [address] PCP - General Family Medicine 01/07/15 documented as of this encounter
--- OUTSIDE RECORDS SUMMARY | 2024-01-10 15:15 | XMS_ITS | Encounter Summary ---
Author Organization [facility] Address 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 Co.: [employer] - [address] [place] [address] Claim: [id number] Graphic Manager: Mathew Vargas (internal transfer only) NCM: No NCM as of 03/08/16 [facility] obtained upated work comp information listed above. Called pt to review he wc status and plan. Left vm with request for call back to ma direct line. documented in this encounter Plan of Treatment Not on file documented as of this encounter Visit Diagnoses Not on filedocumented in this encounter Care Teams Stick Roller Relationship Specialty Start Date End Date Marline Fortune MD [address] [place] [address] PCP - General Family Medicine 01/07/15 documented as of this encounter
--- OUTSIDE RECORDS SUMMARY | 2024-01-10 15:15 | XMS_ITS | Encounter Summary ---
Author Organization [facility] Address [facility] [place] [address] Care Team Providers Care Gelatin Maker Utility Name Role Phone Marline Fortune MD Primary Care Provider [phone] Reason for Visit * Reason Onset Date Comments Other 11/24/2015 Encounter Details Date Type Department Care Team (Late st Contact Info) Description 11/24/2015 [place] [address] Cookie Pantoja MD [facility] [place] [address] Other Social History Tobacco Use Types Packs/Day Years [...] encounter Miscellaneous Notes * Telephone Encounter - Alla Simon RN - 11/24/2015 12:17 PM EDT Pt of Dr. Thompson. Will forward to ALONDRA Carballo. * Telephone Encounter - Mariah Griffin - 11/24/2015 12:00 PM EDT Patient called. She would like to have her MRI scheduled in [facility] Please call her if thisis possible Her number is [phone] documented in this encounter Plan of Treatment Not on file documented as of this encounter Visit Diagnoses Not on filedocumented in this encounter Care Teams Gelatin Maker Utility Relationship Specialty Start Date End Date Marline Fortune MD [address] [place] [address] PCP - General Family Medicine 01/07/15 documented as of this encounter
--- OUTSIDE RECORDS SUMMARY | 2024-01-10 15:15 | XMS_ITS | Encounter Summary ---
Author Organization [facility] [place] [address] Care Team Providers Care Icing Maker Name Role Phone Marline Fortune MD Primary Care Provider [phone] Reason for Visit * Reason Onset Date Comments Other 06/23/2016 Encounter Details Date Type Department Care Team (Late st Contact Info) Description 06/23/2016 Telephone Neurology at [facility] [address] Magdiel Thompson MD [facility] [place] [address] Other Social History Tobacco Use Types Packs/Day [...] encounter Miscellaneous Notes * Telephone Encounter - Marline Bundy RN - 06/23/2016 4:26 PM EDT Return call made to pharmacy. Spoke with Raj. Clarified 24 hour dose limit and weekly limit with him. * Telephone Encounter - Mariah Griffin - 06/23/2016 3:14 PM EDT Caller: Raj If not Pt / Relation to pt: Pharmacist After 230 pm (if not red arrow message) - Informed caller that if the nurse does not call back by the end of the day they will be called tomorrow AM Best number to reach caller: [phone] Reason for call: Pharmacy calling. Has questions on the naratriptan RX Please call to discuss. * Telephone Encounter - Mariah Griffin - 06/23/2016 3:03 PM EDT Caller: Best time to reach caller: After 230 pm (if not red arrow message) - Informed caller that if the nurse does not call back by the end of the day they will be called tomorrow AM Best number to reach caller: [phone] documented in this encounter Plan of Treatment Not on file documented as of this encounter Visit Diagnoses Not on filedocumented in this encounter Care Teams Icing Maker Relationship Specialty Start Date End Date Marline Fortune MD [address] [place] [address] PCP - General Family Medicine 01/07/15 documented as of this encounter
--- OUTSIDE RECORDS SUMMARY | 2024-01-10 15:15 | XMS_ITS | Encounter Summary ---
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 This is not the correct carrier. [facility] will work with [facility] admin to identify the correct carrier. [facility] called pt with this info and requested call back. Pt has requested phone call with Sammi Reyna APRN and we are trying to determine if this would be covered by . Pt may be scheduled for f/u in mid February. documented in this encounter Plan of Treatment Not on file documented as of this encounter Visit Diagnoses Not on filedocumented in this encounter Care Teams Tiller Man Relationship Specialty Start Date End Date Marline Fortune MD [address] [place] [address] PCP - General Family Medicine 01/07/15 documented as of this encounter
--- OUTSIDE RECORDS SUMMARY | 2024-01-10 15:15 | XMS_ITS | Encounter Summary ---
Author Organization [facility] Address [facility] [place] [address] Care Team Providers Care Shade Cutter Name Role Phone Marline Fortune MD Primary Care Provider [phone] Reason for Referral * High Dollar Medication (Routine) - Specialty Diagnoses / Procedures Referred By Contac t Referred To Contact Neurology Diagnoses Intractable chronic migraine without aura and without status migrainosus Procedures Auth Request for Medication TC ONABOTULINUMTOXINA, 1 UNIT, INJECTION Magdiel Thompson MD [facility] [place] [address] [facility] [address] [place] [id number] Referral ID Status Reason Start Date Expiration Date V isits Requested Visits Authorized [id number] Consult, Test & Treat 06/22/2016 06/22/2017 5 5 Reason for Visit * Reason Comments Botox Injection Headache * High Dollar Medication (Routine) - Closed Specialty Diagnoses / Procedures Referred By Contac t Referred To Contact Neurology Diagnoses Chronic migraine without aura with status migrainosus, not intractable Procedures Auth Request for Medication TC ONABOTULINUMTOXINA, 1 UNIT, INJECTION Magdiel Thompson MD [facility] [place] [address] [facility] Neu[facility] [address] [place] [id number] Referral ID Status Reason Start Date Expiration Date V isits Requested Visits Authorized [id number] Closed Consult, Test & Treat 12/23/2015 12/22/2016 4 4 Encounter Details Date Type Department Care Team (Late st Contact Info) Description 06/22/2016 11:30 AM EDT Office Visit Neurology at [facility] [place] [address] Anna Finch MD [facility] [place] [address] Magdiel Thompson MD [facility] [place] [address] Chronic migraine without aura with status migrainosus, not intractable; Intractable chronic post-traumatic headache; Intractable chronic migraine without aura and without [...] Sign Reading Time Taken Comments Blood Pressure 120/78 06/22/2016 11:39 AM EDT Pulse 84 06/22/2016 11:39 AM EDT Temperature - - Respiratory Rate - - Oxygen Saturation - - Inhaled Oxygen Concentration - - Weight 93.4 kg (206 lb) 06/22/2016 11:39 AM EDT Height 170.2 cm (5' 7) 06/22/2016 11:39 AM EDT Body Mass Index 32.26 06/22/2016 11:39 AM EDT documented in this encounter Patient Instructions * Patient Instructions* Magdiel Thompson MD - 06/22/2016 11:30 AM EDT Patient Instructions: Dr Magdiel Thompson, Headache Fellow [facility] 06/22/2016 Instructions: You should be cautious while driving or [...] headache returned in a few hours. Prevention: Botox, we will decreaes the interval to every 10 weeks You should start zonisamide 50mg nightly For mild to moderate Headaches: STOP THE MOTRIN/ADVIL. You may also take Atarax (Hydroxyzine) 25mg every 8 hours. Diclofenac 50mg at headache onset may take up to every 12 hours, do not use more than 2 days in a week. For severe headaches: STOP THE SUMATRIPTAN. Naratriptan 2.5mg at headache onset, may repeat in 2 hours do not take more than 2 tabs in one day or use more than 2 days in a week documented in this encounter Progress Notes * Anna Finch MD - 06/22/2016 11:30 AM EDT Neurology Attending Note Anna Finch MD (Pg [phone]) I certify that I have discussed Mj Turner on 06/22/[address] Thompson, Headache Fellow. The note reflects the patient's history of presentation, physical findings. The assessment and plan were formulated together in discussion and I have personally reviewed all studies. 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 She has also reported difficulty with [...] incidental finding of pineal cyst. MRI 02/2015 ([facility]): MRI did show findings consistent with [...] bold): *TCA -Amitriptyline (ineffective) *AED -Topamax (SOB) - zonisamide *BB/Antihypertensives - Propranolol (no benefit, unable to tolerate therapeutic dose, 10mg tid) *CCB - Verapamil (no benefit) *Ergots -DHE/Migrainal *Antiemetics - prochlorperazine (compazine) - vistaril *NSAIDS - Fioricet - Naproxen - Toradol - Indomethacin - Tylenol - Aspirin - Excetrin migraine - ibuprofen - diclofenac - meloxicam *Triptans - Imitrex (made her drowsy at 100mg, 50mg incomplete headache relief) - maxalt (ineffective) *Supplements - Magnessium - CoQ10 - B2 *others - Botox (PREEMPT) INTERIM HISTORY: Patient returns today for follow-up, she did have 2 sets of Botox so far, after the first set of Botox she did have approximately a month of flulike illness, this was significantly shortened and lessened after the second set of Botox. After second set of Botox she did report 4-6 weeks of near headache freedom and did have a significant improvement overall in her headaches. She did report headaches no longer holocephalic but were localized to her right occipital region which is a change. Overallshe did feel better, however she did feel the Botox wore off approximately 3-4 weeks ago (around week 8-9 after injections). With regards to flulike illness once again she did not report any fever, she did report she did feel weak for a time but no trouble swallowing or trouble speaking no trouble breathing no rash and onset was again approximate 1 day after the Botox. Unfortunately as the Botox wore off she did go back to using sumatriptan in addition to ibuprofen, both medications which we had stopped before because of medication overuse headache. Unfortunately she could not get an adequate response from Migranal in the proximal and had not been significantly beneficial for her in the past. Past Medical History: Patient Active Problem List Diagnosis Code ??? Concussion with brief LOC S06.0X9A ??? Migraines G43.909 ??? Acute post-traumatic headache, not intractable G44.319 ??? Fatigue R53.83 ??? Balance problem R26.89 ??? Attention or concentration deficit R41.840 Medications: Medications 06/22/16 1145 Medication Sig Taking? naproxen sodium (ANAPROX) 220 mg Tablet Take 220 mg by mouth 2 times daily as needed. Yes clindamycin (CLINDAGEL) 1 % Gel Apply topically 2 times daily. Yes hydrOXYzine (ATARAX) 25 mg Tablet Take 1 tablet by mouth every 8 hours as needed (headaches.). Yes albuterol (PROVENTIL HFA) 90 mcg/actuation HFA Aerosol Inhaler Inhale 2 puffs into the lungs every 4 hours as needed for Wheezing. Use with spacer Yes lidocaine (XYLOCAINE) 2 % Gel Apply topically as needed. Apply small amount to back of head and neck 4-6 times daily as needed for headaches and neck pain Yes Allergies Allergen Reactions ??? Latex ??? Chantix [...] swelling, arthritis, msk pain Physical Exam: Vitals: 06/22/16 1139 BP: 120/78 Pulse: 84 Physical Exam General: alert, NAD HEENT: oral mucosa moist, no thrush MSK: minor ZUHAIR tenderness bilaterally, minor SCM tenderness Neuro exam: MSE: awake alert interactive and [...] hour(s)). Diagnostic Tests and Imaging: MRI 02/2015 ([facility]): MRI did show findings consistent with [...] medication trials which have been unsuccessful, she hasalso tried several abortive medications which have been suboptimal in the past. At our initial visit our impression was that of chronic migraine, posttraumatic headaches, post concussive syndrome medication overuse headache. We did instruct her to stop sumatriptan and Motrin which she had been overusing and did give her Botox, and she did have a prolonged flulike syndrome, which was better after the second set of Botox injections. After the second set of Botox injection she did have approximate4-6 weeks in which she did very well and had minimal headache, unfortunately when the headache returned as the Botox began to wear off around week 8, she did start to use sumatriptan and ibuprofen fairly consistently again. Today we did have a fairly in-depth discussion, Migranal had not been working so she should stop that and she should also stay away from sumatriptan and Motrin as this is likely causing overuse headache. In place of this I will give her naratriptan and diclofenac as needed and we will start zonisamide with the hope that and added preventative medication will help to carry her in between doses of Botox, I will also decrease her interval Botox to 10 weeks, and I will see her again in August for her next set of injections. *IMP: - chronic migraine without aura - post traumatic headache - post concussive syndrome. - medication overuse headache (advil) *PLAN - Stop MIGRANAL, sumatriptan and motrin - Diclofenac and naratriptan as needed - start zonisamide 50mg daily for ppx. 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 She's tried several different medications from each of the 3 major antimigraine categories including, verapamil and propranolol from the antihypertensive category, Topamax me antiepileptic category and amitriptyline from the antidepressant category. She has been started on Botox and is reported fairly significant improvement unfortunately the effect of Botox wears off around week 8 to 9, I believe decreasing the interval to every 10 weeks, which would be 5 visits per year would be appropriate in this case and I would like to do this. Patient was seen with Dr Finch, I spent a total of 30 minutes of this 30 minute appt with this patient in face to face evaluation and diagnostic/therapeutic planning. Magdiel Thompson MD Headache Fellow [facility] Neurology Patient Instructions: Dr Magdiel Thompson, Headache Fellow [facility] 06/22/2016 Instructions: You should be cautious while driving or [...] headache returned in a few hours. Prevention: Botox, we will decreaes the interval to every 10 weeks You should start zonisamide 50mg nightly For mild to moderate Headaches: STOP MOTRIN You may also take Atarax (Hydroxyzine) 25mg every 8 hours. Diclofenac 50mg at headache onset may take up to every 12 hours, do not use more than 2 days in a week. For severe headaches: STOP migranal and Sumatriptan. Naratriptan 2.5mg at headache onset, may repeat in 2 hours do not take more than 2 tabs in one day or use more than 2 days in a week documented in this encounter Procedure Notes * Magdiel Thompson MD - 06/22/2016 11:30 AM EDTAssociated Order(s): CHEMODENERVATION, MEDICAL Neurology Procedure note Date: 06/22/2016 Patient: Mj Turner : 1980 Procedure: Botox injections (PREEMPT protocol, Follow the Pain Protocol) Indications: Chronic Migraine Date Procedure MIDAS 12/23/15 PREEMPT 130, 90/90, 12/26 ??03/22/16 ??PREEMPT ??76, 90/90, 09/2506/22/16 PREEMPT 60, 80/90, 08/26 ?? Pt currently NOT on OCP (had been in the past), she is aware she may not become [...] 1 injection of 5 U in right seed corn production manager muscle 1 injection of 5 U in left seed corn production manager muscle 2 injections of 5 U [...] total injection dose = 155 U LOT# [id number] EXP: 01/04 Total units used= 155. Total injection sites=31. Patient was injected with 155 units and 45 units were wasted/disgarded The patient tolerated the procedure without any immediate complications. Magdiel Thompson MD [facility] Neurology Migraine Disability Assessment # of days in the past 3 months 1. Missed work / school because of THOMPSON 0 2. Productivity at work / school reduced by > half because of THOMPSON (do not count days from Q.1) 0 3. Did not do housework because of THOMPSON 30 4. Productivity in household work reduced by > half because of THOMPSON (do not count days from Q.3) 30 5. Missed family / social / leisure activities because of THOMPSON 0 Total 60 MIDAS grade (use total of Q1 to 5) I: 0-5, little to no disability II: 6-10, mild disability III: 11-20, moderate disability IV: 21+, severe disability A. # of days in the last 3 months with a THOMPSON (count each day if THOMPSON lasted > 1 day) 80 B. Average THOMPSON intensity (0-10) 6 References Radha A, Marvin SD, Bertha DW, Anna SK, Cindy CC, Bar WJ. Method of injection of onabotulinumtoxina for chronic migraine: a safe, well- tolerated, and effective treatment paradigm based on the PREEMPT clinical program. Headache. 2010;50(9):9658-0815. documented in this encounter Plan of Treatment Not on file documented as of this encounter Procedures Procedure Name Priority Date/Time Associated Diagnosis Comments CHEMODENERVATION, MEDICAL Routine 06/22/2016 2:04 PM EDT Chronic migraine without aura with status migrainosus, not intractable Intractable chronic post-traumatic headache documented in this encounter Results * Chemodenervation, medical (06/22/2016 2:04 PM EDT) Narrative Magdiel Thompson MD - 06/22/2016 2:04 PM EDT Magdiel Thompson MD ? 06/22/2016 ??2:04 PM Neurology Procedure note Date: 06/22/2016 Patient: Mj Turner : ??1980 Procedure: Botox injections (PREEMPT protocol, Follow the Pain Protocol) Indications: Chronic Migraine Date Procedure ??MIDAS 12/23/15 PREEMPT 130, 90/, 12/26 ??03/22/16 ??PREEMPT ??76, 90, 09/2506/22/16 PREEMPT 60, 80/, 08/26 ?? Pt currently NOT on OCP (had been in the past), she is aware she may not become [...] 1 injection of 5 U in right seed corn production manager muscle 1 injection of 5 U in left seed corn production manager muscle 2 injections of 5 U [...] total injection dose = 155 U LOT# [id number] EXP: 01/04 Total units used= 155. Total injection sites=31. Patient was injected with 155 units and 45 units were wasted/disgarded The patient tolerated the procedure without any immediate complications. Magdiel Thompson MD [facility] Neurology Migraine Disability Assessment # of days in the past 3 months 1. Missed work / school because of THOMPSON 0 2. Productivity at work / school reduced by > half because of THOMPSON (do not count days from Q.1) 0 3. Did not do housework because of THOMPSON 30 4. Productivity in household work reduced by > half because of THOMPSON (do not count days from Q.3) 30 5. Missed family / social / leisure activities because of THOMPSON 0 Total 60 MIDAS grade (use total of Q1 to 5) I: 0-5, little to no disability II: 6-10, mild disability III: 11-20, moderate disability IV: 21+, severe disability A. # of days in the last 3 months with a THOMPSON (count each day if THOMPSON lasted > 1 day) 80 B. Average THOMPSON intensity (0-10) 6 References Radha A, Marvin SD, Bertha DW, [...] mention of intractable migraine with status migrainosus Intractable chronic post-traumatic headache Chronic post-traumatic headache Intractable chronic migraine without aura and without status migrainosus Chronic migraine without aura, with intractable migraine, so stated, without mention of status migrainosus documented in this encounter Administered Medications Inactive Administered Medications - up to 3 most recent administrations Medication Order MAR Action Action Date Dose Rate Site botulinum toxin type A (BOTOX) injection 200 Units 200 Units, Intramuscular, ONCE, 1 dose, On Ashely 06/22/16 at 1230, Routine Given 06/22/2016 2:03 PM EDT 155 Units 20-Other (document in comment section) documented in this encounter Care Teams Shade Cutter Relationship Specialty Start Date End Date Marline Fortune MD [address] [place] [address] PCP - General Family Medicine 01/07/15 documented as of this encounter
--- OUTSIDE RECORDS SUMMARY | 2024-01-10 15:15 | XMS_ITS | Encounter Summary ---
Author Organization [facility] Address [facility] [place] [address] Care Team Providers Care School Child Care Attendant Name Role Phone Marline Fortune MD Primary Care Provider [phone] Encounter Details Date Type Department Care Team (Latest Contact Info) Description 01/08/2015 - 01/08/2015 12:14 AM EDT Hospital Encounter Radiology Library at [facility] [place] [address] Hong Rios MD [facility] [place] [address] Pain Discharge Disposition: Home Social History Tobacco [...] LIBRARY STORAGE ONLY MR SPINE Routine 01/08/2015 12:00 AM EDT Pain documented in this encounter Results * Film Library- Storage only MR Spine (01/08/2015 12:00 AM EDT) Narrative CRISTEL SOLITARIO - 11/12/2015 4:28 PM EDT This exam is for storage only and is auto-finalizing. Hong Rios MD IMG FILM LIBRARY O RDERABLES [place], [place] documented in this encounter Visit Diagnoses Diagnosis Pain Generalized pain documented in this encounter Care Teams School Child Care Attendant Relationship Specialty Start Date End Date Marline Fortune MD [address] [place] [address] PCP - General Family Medicine 01/07/15 documented as of this encounter
--- OUTSIDE RECORDS SUMMARY | 2024-01-10 15:15 | XMS_ITS | Encounter Summary ---
Author Organization [facility] Address [address] [place] [address] Care Team Providers Care Production Line Solderer Name Role Phone Tish Poole MD Primary Care Provider [phone] Encounter Details Date Type Department Care Team (Late st Contact Info) Description 03/24/2011 Results Only [facility] Laboratory Services - [facility] ([facility]) [address] [place], [place] [address] Marline Fortune MD [address] [place], [place] [id number] Social History Tobacco Use Types Packs/Day Years Used Date Smoking Tobacco: Never Assessed Sex and Gender Information Value Date Recorded Sex Assigned at Not on file Gender Identity Not on file Sexual Orientation Not on file documented as of this encounter Plan of Treatment Not on file documented as of this encounter Procedures Procedure Name Priority Date/Time Associated Diagnosis Comments PAP TEST- RESULT ONLY Routine 03/24/2011 0:00 EST documented in this encounter Results * PAP TEST- RESULT ONLY (03/24/2011 0:00 EST) Pathology Report: CYTOPATHOLOGY REPORT Reports generated via electronic interface contain original data; however they are lacking the format of the original report. Caution should be taken when reading/interpreti ng unformatted reports. Name: ? BUDDY HALEY ? Accession #: ? [id number] : ? 1980 (Age: 30) ??F ?Collect Date: ? 03/24/2011 Location: ? [facility] ? Receive Date: ? 03/27/2011 Provider: ?MARLINE FORTUNE MD Copy to: ? Specimen/Source: ?Pap Test, Cervix/Endocervix, ThinPrep Imaging System with manual evaluation Last Menstrual Period: ? Hormonal/Contracep tive Status: ? Intrauterine device: Mirena Previous Gynecologic Pathology: ? HPV: + known Yes: Hx abnormal pap ? SPECIMEN ADEQUACY ? Satisfactory for Evaluation - transformation zone component present GENERAL CATEGORIZATION ? Negative for Intraepithelial Lesion or Malignancy INTERPRETATION ? Reactive cellular changes associated with inflammation present (includes repair). ? Document reviewed and electronically signed by: ? ASHANTI BOLAÑOS MD ? Report Date: ??03/29/2011 14:06 End of Report PINA ZIMMER 03/24/2011 03/27/2011 Marline Fortune MD PATHOLOGY ORDERABLES Performing Organization Address City/State/[facility] Co de Phone Number [facility] [address] [place] [address] documented in this encounter Visit Diagnoses Not on filedocumented in this encounter Care Teams Production Line Solderer Relationship Specialty Start Date End Date Tish Poole MD [address] [place] [phone] PCP - General 10/27/08 04/18/22 documented as of this encounter
--- OUTSIDE RECORDS SUMMARY | 2024-01-10 15:15 | XMS_ITS | Encounter Summary ---
Author Organization [facility] Address [facility] [place] [address] Care Team Providers Care Pulmonary Nurse Practitioner Name Role Phone Marline Fortune MD Primary Care Provider [phone] Reason for Visit * Reason Comments Botox Injection Headache * High Dollar Medication (Routine) - Closed Specialty Diagnoses / Procedures Referred By Contac t Referred To Contact Neurology Diagnoses Chronic migraine without aura, not intractable, without status migrainosus Procedures CHEMODENERVATION, MEDICAL TC ONABOTULINUMTOXINA, 1 UNIT, INJECTION PRO DEST,NERVE,FACIAL PRO CHEMODENERVATION FACIAL/TRIGEM/CERV MUSC MIGRAINE Magdiel Thompson MD [facility] [place] [address] Magdiel Thompson MD [facility] [place] [address] Referral ID Status Reason Start Date Expiration Date V isits Requested Visits Authorized [id number] Closed Evaluate and Treat 12/16/2015 03/16/2016 1 1 Encounter Details Date Type Department Care Team (Late st Contact Info) Description 12/23/2015 11:30 AM EDT Office Visit Neurology at [facility] [place] [address] Hair oRwell MD [facility] [place] [address] Magdiel Thompson MD [facility] [place] [address] Chronic migraine without aura with status migrainosus, [...] Sign Reading Time Taken Comments Blood Pressure 123/76 12/23/2015 11:41 AM EDT Pulse 87 12/23/2015 11:41 AM EDT Temperature - - Respiratory Rate - - Oxygen Saturation - - Inhaled Oxygen Concentration - - Weight 89.8 kg (198 lb) 12/23/2015 11:41 AM EDT Height 168.9 cm (5' 6.5) 12/23/2015 11:41 AM ED T Body Mass Index 31.48 12/23/2015 11:41 AM EDT documented in this encounter Patient Instructions * Patient Instructions* Magdiel Thompson MD - 12/23/2015 11:30 AM EDT Since her insurance will not pay for DHE, we did write her prescription for Maxalt as below, you may take one 10 mg tab at headache onset, if this makes her drowsy cut in half and take one half of the tap. 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 Rizatriptan (Maxalt)10mg tablets PRN 1 tablet at onset of headache, can take second tablet if THOMPSON has not resolved after 2 hours Do not exceed use 2 days per week Do not exceed 20mg in a 24 hour period Disp # 12 If you are drowsy on the 10mg dose then try cutting the tab in half. documented in this encounter Procedure Notes * Magdiel Thompson MD - 12/23/2015 11:30 AM EDTAssociated Order(s): CHEMODENERVATION, MEDICAL Neurology Procedure note Date: 12/23/2015 Patient: Mj Turner : 1980 Procedure: Botox injections (PREEMPT protocol, Follow the Pain Protocol) Indications: Chronic Migraine Date Procedure MIDAS 12/23/15 PREEMPT 130, 90/90, 12/26 Pt currently on OCP, she is aware she may not become while on botox as there is the risk of defects, if she does become she should call us immediately. Risk and benefits were explained to the patient. Written consent was obtained - Prior to the procedure Time out was preformed OnabotulinumtoxinA was reconstituted with 0.9% NaCl to create a dilution of 5 units per 0.1mL. Each injection site was sterilized with 70% isopropyl alcohol. Botox injections on this patient as follows: 1 injection of 5 U in procerus 1 injection of 5 U in right cadet deck muscle 1 injection of 5 U in left cadet deck muscle 2 injections of 5 U in [...] total injection dose = 155 U LOT# [id number] EXP: 07/05 Follow the Pain procedure was used as she had incomplete headache relief with previous therapies. 2 injections of 5 U in right temporalis muscle 1 injections of 5 U in right occipitalis muscle 1 injections of 5 U in left occipitalis muscle 1 injections of 5 U in right trapeziuss muscle 1 injections of 5 U in left trapezius muscle Total units used= 185. Total injection sites=37. Patient was injected with 185 units and 15 units were wasted/disgarded The patient tolerated the procedure without any immediate complications. Magdiel Thompson MD [facility] Neurology * Magdiel Thompson MD - 12/23/2015 11:30 AM EDTAssociated Order(s): NERVE BLOCK - OCCIPITAL Procedure Note Procedure: Bilateral Greater Occipital Nerve Blocks Indication: Headache with occipital/cervical tenderness Consent: Indication, risks, benefits, and alternatives discussed with patient, including risk of bleeding, infection, permanent numbness, and medication reaction. Written consent signed by patient - prior to the procedure, time out was also done prior to the procedure Location: The greater occipital nerve was located by first palpating the mastoid and midline occipital ridge. The nerve was palpated at 2/3 the distance to the occipital ridge. It was coincident withmaximal tenderness Medication: 50/50 mixture of 1% lidocaine and 0.25% bupivacaine Technique: The area was cleansed with 2 alcohol swabs while using clear gloves. Using a 3 cc syringe and a 25 guage 5/8 inch needle, 3 cc of the medication mixture was injected into multiple tissue planes in the area around each greater occipital nerve. Prior to each injection the plunger was drawnback to ensure that the needle was not in a blood vessel. The patient tolerated the procedure well. Complications: None Blood loss: <1 cc Since her insurance will not pay for DHE, we did write her prescription for Maxalt as below, you may take one 10 mg tab at headache onset, if this makes her drowsy cut in half and take one half of the tap. 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 Dr Rowell updated. ? Rizatriptan (Maxalt)10mg tablets PRN ?? 1 tablet at onset of headache, can take second tablet if THOMPSON has not resolved after 2 hours ?? Do not exceed use 2 days per week ?? Do not exceed 20mg in a 24 hour period ?? Disp # 12 If you are drowsy on the 10mg dose then try cutting the tab in half. ?? Magdiel Thompson MD Headache Fellow [facility] Neurology documented in this encounter Plan of Treatment Not on file documented as of this encounter Procedures Procedure Name Priority Date/Time Associated Diagnosis Comments CHEMODENERVATION, MEDICAL Routine 12/23/2015 1:23 PM EDT Chronic migraine without aura with status migrainosus, not intractable NERVE BLOCK - OCCIPITAL Routine 12/23/2015 12:51 PM EDT Chronic migraine without aura with status migrainosus, not intractable documented in this encounter Results * Chemodenervation, medical (12/23/2015 1:23 PM EDT) Narrative Magdiel Thompson MD - 12/23/2015 1:23 PM EDT Magdiel Thompson MD ? 12/23/2015 ??1:23 PM Neurology Procedure note Date: 12/23/2015 Patient: Mj Turner : ??1980 Procedure: Botox injections (PREEMPT protocol, Follow the Pain Protocol) Indications: Chronic Migraine Date ??Procedure ?? MIDAS 12/23/15 PREEMPT 130, , 12/26 ?? Pt currently on OCP, she is aware she may not become while on botox as there is the risk of defects, if she does become she should call us immediately. ?? Risk and benefits were explained to the patient. Written consent was obtained - Prior to the procedure Time out was preformed OnabotulinumtoxinA was reconstituted with 0.9% NaCl to create a dilution of 5 units per 0.1mL. Each injection site was sterilized with 70% isopropyl alcohol. Botox injections on this patient as follows: 1 injection of 5 U in procerus 1 injection of 5 U in right cadet deck muscle 1 injection of 5 U in left cadet deck muscle 2 injections of 5 U in [...] total injection dose = 155 U LOT# [id number] EXP: 07/05 Follow the Pain procedure was used as she had incomplete headache relief with previous therapies. ?? 2 injections of 5 U in right temporalis muscle 1 injections of 5 U in right occipitalis muscle 1 injections of 5 U in left occipitalis muscle 1 injections of 5 U in right trapeziuss muscle 1 injections of 5 U in left trapezius muscle Total units used= 185. Total injection sites=37. Patient was injected with 185 units and 15 units were wasted/disgarded The patient tolerated the procedure without any immediate complications. Magdiel Thompson MD [facility] Neurology Magdiel Thompson MD PROCEDURE/MINOR S URGICAL ORDERABLES * Nerve Block - Occipital (12/23/2015 12:51 PM EDT) Narrative Magdiel Thompson MD - 12/23/2015 12:51 PM EDT Magdiel Thompson MD ? 12/23/2015 12:51 PM Procedure Note Procedure: Bilateral Greater Occipital Nerve Blocks Indication: Headache with occipital/cervical tenderness Consent: Indication, risks, benefits, and alternatives discussed with patient, including risk of bleeding, infection, permanent numbness, and medication reaction. ?? Written consent signed by patient - prior to the procedure, time out was also done prior to the procedure Location: The greater occipital nerve was located by first palpating the mastoid and midline occipital ridge. ??The nerve was palpated at 2/3 the distance to the occipital ridge. ??It was coincident with maximal tenderness Medication: 50/50 mixture of 1% lidocaine and 0.25% bupivacaine Technique: The area was cleansed with 2 alcohol swabs while using clear gloves. ??Using a 3 cc syringe and a 25 guage 5/8 inch needle, 3 cc of the medication mixture was injected into multiple tissue planes in the area around each greater occipital nerve. ?? Prior to each injection the plunger was drawn back to ensure that the needle was not in a blood vessel. ??The patient tolerated the procedure well. Complications: None Blood loss: <1 cc Since her insurance will not pay for DHE, we did write her prescription for Maxalt as below, you may take one 10 mg tab at headache onset, if this makes her drowsy cut in half and take one half of the tap. 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 Dr Rowell updated. ? Rizatriptan (Maxalt)10mg tablets PRN ?? 1 tablet at onset of headache, can take second tablet if THOMPSON has not resolved after 2 hours ?? Do not exceed use 2 days per week ?? Do not exceed 20mg in a 24 hour period ?? Disp # 12 If you are drowsy on the 10mg dose then try cutting the tab in half. ?? Magdiel Thompson MD Headache Fellow [facility] Neurology Magdiel Thompson MD NEUROLOGY ORDERAB LES documented in this encounter Visit Diagnoses Diagnosis [...] Units, Intramuscular, ONCE, 1 dose, On Ashely 12/23/15 at 1200, Routine Given 12/23/2015 12:44 PM EDT 200 Units 20-Other (document in comment section) BUpivacaine (PF) (MARCAINE) 0.25 % (2.5 mg/mL) injection 7.5 mg 7.5 mg, Subcutaneous, ONCE, 1 dose, On Ashely 12/23/15 at 1300, Routine Given 12/23/2015 12:45 PM EDT 7.5 mg 20-Other (document in comment section) lidocaine (XYLOCAINE) 10 mg/mL (1 %) injection 30 mg 30 mg, Subcutaneous, ONCE, 1 dose, On Ashely 12/23/15 at 1300, Routine Given 12/23/2015 12:46 PM EDT 30 mg 20-Other (document in comment section) documented in this encounter Care Teams Pulmonary Nurse Practitioner Relationship Specialty Start Date End Date Marline Fortune MD [address] [place] [address] PCP - General Family Medicine 01/07/15 documented as of this encounter
--- OUTSIDE RECORDS SUMMARY | 2024-01-10 15:15 | XMS_ITS | Encounter Summary ---
[place] [address] Care Team Providers Care Puller Over Name Role Phone Marline Fortune MD Primary Care Provider Reason for Referral * Consultation (Routine) - Closed Specialty Diagnoses / Procedures Referred By Contac t Referred To Contact Rheumatology Diagnoses Psoriatic arthritis Marline Fortune MD [address] [place] [address] [facility] [address] [place] [id number] Referral ID Status Reason Start Date Expiration Date V isits Requested Visits Authorized [id number] Closed Consult, Test & Treat PCP Updated and/or Approved 10/14/2021 10/14/2022 6 6 Encounter Details Date Type Department Care Team (Latest Contact Info) Description 10/14/2021 Transcribe Orders eDH Incoming Referrals [phone] Marline Fortune MD [address] [place], [place] [id number] Psoriatic arthritis Social History Tobacco Use Types Packs/Day Years [...] Priority Associated Diagnoses Order Schedule Referral to Rheumatology Outpatient Referral Routine Psoriatic arthritis Ordered: 10/14/2021 documented as of this encounter Visit Diagnoses Diagnosis Psoriatic arthritis Psoriatic arthropathy documented in this encounter Care Teams Puller Over Relationship Specialty Start Date End Date Marline Fortune MD [address] [place] [address] PCP - General Family Medicine 01/07/15 documented as of this encounter
--- OUTSIDE RECORDS SUMMARY | 2024-01-10 15:15 | XMS_ITS | Referral Summary ---
Author Organization [facility] Address [address] [place] [address] Care Team Providers Care Space Controller Name Role Phone Marline Fortune MD Primary Care Provider [phone] Social History Tobacco Use Types Packs/Day Years Used Date Smoking Tobacco: Never Assessed Sex and Gender Information Value Date Recorded Sex Assigned at Not on file Gender Identity Not on file Sexual Orientation Not on file Plan of Treatment Not on file Care Teams Space Controller Relationship Specialty Start Date End Date Marline Fortune MD [address] [place] [id number] PCP - General 04/19/22
--- OUTSIDE RECORDS SUMMARY | 2024-01-10 15:15 | XMS_ITS | Encounter Summary ---
Author Organization [facility] Address [address] [place] [address] Care Team Providers Care Relationship Assoc Name Role Phone Tish Archibald MD Primary Care Provider [phone] Encounter Details Date Type Department Care Team (Late st Contact Info) Description 07/07/2005 Results Only [facility] [address] [place] [address] Tish Archibald MD [address] [phone] Social History Tobacco Use Types [...] Priority Date/Time Associated Diagnosis Comments CYTOPATHOLOGY Routine 07/07/2005 0:00 EDT documented in this encounter Results * CYTOPATHOLOGY (07/07/2005 0:00 EDT) Pathology Report: CYTOPATHOLOGY REPORT Reports generated via electronic interface contain original data; however they are lacking the format of the original report. Caution should be taken when reading/interpreti ng unformatted reports. Name: ? BUDDY HALEY ? Accession #: ? [id number] : ? 1980 (Age: 25) ??F ?Collect Date: ? 07/07/2005 Location: ? [facility] ? Receive Date: ? 07/10/2005 Provider: ?TISH ARCHIBALD MD Copy to: ? Specimen/Source: ?ThinPrep Pap Test, Cervix/Endocervix, processed on [employer] ThinPrep Imaging System, with manual evaluation Last Menstrual Period: ? 03/24 Menstrual/Pregnanc y Status: ? Other: ? HPVA - HPV testing requested if ASC-US on the current ThinPrep Pap test. ? SPECIMEN ADEQUACY ? Satisfactory for Evaluation - transformation zone component present GENERAL CATEGORIZATION ? Negative for Intraepithelial Lesion or Malignancy ? Document reviewed and electronically signed by: ? WILL Mckeon(ASCP)(IAC) ? Report Date: ??07/12/2005 09:41 End of Report PINA ZIMMER 07/07/2005 07/10/2005 Tish Archibald MD PATHOLOGY ORDERABLES Performing Organization Address City/State/[facility] Co de Phone Number PINA GONZALEZ [facility] [address] [place] [address] documented in this encounter Visit Diagnoses Not on filedocumented in this encounter Care Teams Relationship Assoc Relationship Specialty Start Date End Date Tish Archibald MD [address] [phone] PCP - General 10/27/08 04/18/22 documented as of this encounter
--- OUTSIDE RECORDS SUMMARY | 2024-01-10 15:15 | XMS_ITS | Encounter Summary ---
Author Organization [facility] Address [address] [place] [address] Care Team Providers Care Waste Water Treatment Plant Operator Name Role Phone Tish Poole MD Primary Care Provider [phone] Marline Fortune MD Primary Care Provider [phone] Encounter Details Date Type Department Care Team (Late st Contact Info) Description 10/04/2021 Lab Requisition [facility] Pathology & Laboratory Medicine - [address] [address] Outr Resulting Lab, Provider Social History Tobacco [...] Procedure Name Priority Date/Time Associated Diagnosis Comments LYME AB Routine 10/04/2021 10:00 EDT documented in this encounter Results * LYME AB (10/04/2021 10:00 EDT) Lyme Ab Negative Negative 10/05/2021 10:42 EDT [facility] Blood VENOUS BLOOD / Unknown 10/04/2021 10:00 EDT 10/04/2021 21:43 EDT Provider Outr Resulting Lab IMMUNOLOGY A ND SEROLOGY ORDERABLES [facility] [address] [place] [address] documented in this encounter Visit Diagnoses Not on filedocumented in this encounter Care Teams Waste Water Treatment Plant Operator Relationship Specialty Start Date End Date Tish Poole MD [address] [phone] PCP - General 10/27/08 04/18/22 Marline Fortune MD [address] [place] [address] PCP - General 04/19/22 documented as of this encounter
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
--- OUTSIDE RECORDS SUMMARY | 2024-01-10 15:15 | XMS_ITS | Encounter Summary ---
Author Organization [facility] Address [address] [place] [address] Care Team Providers Care Wire Weaving Loom Setter Name Role Phone Tish Poole MD Primary Care Provider [phone] Encounter Details Date Type Department Care Team (Late st Contact Info) Description 07/30/2014 Results Only [facility] [phone] Marline Fortune MD [address] [place], [place] [id number] Social History Tobacco Use Types Packs/Day Years [...] Diagnosis Comments PAP TEST- RESULT ONLY Routine 07/30/2014 0:00 EDT documented in this encounter Results * PAP TEST- RESULT ONLY (07/30/2014 0:00 EDT) Pathology Report: CYTOPATHOLOGY REPORT Reports generated via electronic interface contain original data; however they are lacking the format of the original report. Caution should be taken when reading/interpreti ng unformatted reports. Name: ? BUDDYROBERTOHALEY ? Accession #: ? [id number] ? : ? 1980 (Age: 34) ??F ?Collect Date: ? 07/30/2014 ? Location: ? [facility] ? Receive Date: ? 08/03/2014 ? Provider: MARLINE FORTUNE MD Copy to: ? Final Report SPECIMEN ADEQUACY ? Satisfactory for Evaluation - transformation zone component present GENERAL CATEGORIZATION ? Negative for Intraepithelial Lesion or Malignancy INTERPRETATION ? Reactive cellular changes associated with inflammation present (includes repair). Shift in viri present suggestive of bacterial vaginosis. Hormonal/Contracep tive status: Intrauterine device: Mirena Previous Gynecologic Pathology: HPV: H/O + Specimen/Source: ??Pap Test, Cervix/Endocervix, ThinPrep Imaging System with manual evaluation Document reviewed and electronically signed by: ? CONTRERAS SCHULTZ MD ? Report ??Date: 08/12/2014 15:04 HPV with Pap Test ? Date Ordered: ? 08/12/2014 ? Status: ?? Signed Out ?Date Complete: ? 08/14/2014 ? By: ??System Interface ? Date Reported: ? 08/14/2014 ? Interpretation RESULT: Negative for HPV. No E6 or E7 mRNA is detected from HPV types 16,18,31,33,35, 39,45,51,52,56,58, 59,66, and 68 by roller varnisher mediated amplification. Comments Document reviewed and electronically signed by: ? System Interface ? Report date: 08/14/2014 By the signature above, the attending physician certifies that he/she has personally conducted a gross and/or microscopic examination of the described specimens and rendered or confirmed the above diagnosis. End of Report [facility] 07/30/2014 08/03/2014 Marline Fortune MD PATHOLOGY ORDERABLES [facility] [address] [place] [address] documented in this encounter Visit Diagnoses Not on filedocumented in this encounter Care Teams Wire Weaving Loom Setter Relationship Specialty Start Date End Date Tish Poole MD [address] [place] [phone] PCP - General 10/27/08 04/18/22 documented as of this encounter
--- OUTSIDE RECORDS SUMMARY | 2024-01-10 15:15 | XMS_ITS | Encounter Summary ---
Author Organization [facility] [place] [address] Care Team Providers Care Track Repairer Helper Name Role Phone Marline Fortune MD Primary Care Provider [phone] Reason for Referral * Psychiatric (Routine) - Closed Specialty Diagnoses / Procedures Referred By Contac t Referred To Contact Psychiatry Diagnoses Concussion with brief LOC Procedures PRO NEUROPSYCHOLOGICAL TESTING,PER HOUR BY PHARMACY HELPER Sammi Choudhury MAIL DELIVERY SUPERVISOR [facility] [place] [address] [facility] [address] [place] [address] Referral ID Status Reason Start Date Expiration Date V isits Requested Visits Authorized [id number] Closed Consult & Test 11/17/2015 11/16/2016 1 1 Encounter Details Date Type Department Care Team (Late st Contact Info) Description 11/17/2015 Orders [place] [address] Sammi Choudhury MAIL DELIVERY SUPERVISOR [facility] [address] Concussion with brief LOC Social History Tobacco Use Types Packs/Day Years Used Date Smoking Tobacco: Never Assessed Sex and Gender Information Value Date Recorded Sex Assigned at Not on file Gender Identity Not on file Sexual Orientation Not on file documented as of this encounter Plan of Treatment Scheduled Referrals Name Type Priority Associated Diagnoses Order Schedule Referral to Neuropsychology Outpatient Referral Routine Concussion with brief LOC Ordered: 11/17/2015 documented as of this encounter Visit Diagnoses Diagnosis Concussion with brief LOC Concussion with loss of consciousness of 30 minutes or less documented in this encounter Care Teams Track Repairer Helper Relationship Specialty Start Date End Date Marline oFrtune MD [address] [place] [address] PCP - General Family Medicine 01/07/15 documented as of this encounter
--- OUTSIDE RECORDS SUMMARY | 2024-01-10 15:15 | XMS_ITS | Encounter Summary ---
Author Organization [facility] Address [address] [place] [address] Care Team Providers Care Teaching Supervisor Name Role Phone Tish Poole MD Primary Care Provider [phone] Encounter Details Date Type Department Care Team (Late st Contact Info) Description 05/26/2001 Results Only [facility] [address] [place] [address] Андрей Swain MD [address] [place] [phone] Social History Tobacco Use Types Packs/Day Years Used Date Smoking Tobacco: Never Assessed Sex and Gender Information Value Date Recorded Sex Assigned at Not on file Gender Identity Not on file Sexual Orientation Not on file documented as of this encounter Plan of Treatment Not on file documented as of this encounter Procedures Procedure Name Priority Date/Time Associated Diagnosis Comments SURGICAL PATHOLOGY Routine 05/26/2001 0:00 EST documented in this encounter Results * SURGICAL PATHOLOGY (05/26/2001 0:00 EST) Pathology Report: SURGICAL PATHOLOGY REPORT Reports generated via electronic interface contain original data; however they are lacking the format of the original report. Caution should be taken when reading/interpreti ng unformatted reports. Name: ? BUDDY, HALEY ? Accession #: ? [id number] ? : ? 1980 (Age: 20) ??F ? Collect Date: ? 05/26/2001 ? Location: ? [facility] ? Receive Date: ? 05/28/2001 ? Provider: АНДРЕЙ SWAIN MD Copy to: TISH HANNAH MD ? Final Pathologic Diagnosis: ? Gallbladder, cholecystectomy: 1. ?Chronic cholecystitis. 2. ?Cholesterolosis. 3. ?Cholelithiasis. Document reviewed and electronically signed by: Lauren Page MD Report ??Date: 05/30/2001 17:22 By the signature above, the attending physician certifies that he/she has personally conducted a gross and/or microscopic examination of the described specimens and rendered or confirmed the above diagnosis. Specimen(s) Received: ? Gallbladder Clinical History: ? Cholecystitis Gross Description: ? Received in formalin labelled Lacy and gallbladder is a gallbladder with attached cystic duct. ??The gallbladder measures 6.5 x 3.5 x 2.0 cm. ??The cystic duct measures 1.0 cm in length by 0.7 cm in diameter. ??The gallbladder and attached cystic duct weigh 16 grams. ??The gallbladder is received partially open and contains numerous mixed type calculi which vary in size from 0.7 x 0.5 x 0.3 cm to 0.1 x 0.1 x 0.1 cm. ??There is a moderate amount of bile present which is green-yellow and slightly viscous in consistency. ??The mucosa is green-yellow, finely trabecular, with numerous slightly raised yellow flecks that form a reticular pattern. ??The wall thickness measures an average of 0.4 cm in thickness. ??The serosal surface is smooth, tubbs, and glistening. ??Three community service representative sections of gallbladder are taken and submitted in one cassette. (Fausto Harper/ljn End of Report [facility] 05/26/2001 05/28/2001 13: 50 EST Андрей Swain MD PATHOLOGY ORDERABLE S [facility] [address] [place] [address] documented in this encounter Visit Diagnoses Not on filedocumented in this encounter Care Teams Teaching Supervisor Relationship Specialty Start Date End Date Tish Poole MD [address] [place] [phone] PCP - General 10/27/08 04/18/22 documented as of this encounter
--- OUTSIDE RECORDS SUMMARY | 2024-01-10 15:15 | XMS_ITS | Clinical Summary ---
Author Organization [facility] Address [facility] [place] [address] Care Team Providers Care Social Media Marketing Specialist Name Role Phone Marline Fortune MD Primary Care Provider [phone] Allergies Active Allergy Reactions Criticality Noted Date Comments Varenicline 11/18/2015 Medroxyprogesterone 11/18/2015 Erythromycin 11/18/2015 Latex 11/18/2015 Oxycodone-Acetaminophen Rash Medium 11/30/2021 Topiramate 11/18/2015 Medications Medication Sig Dispensed Refills Start Date End Date Status albuteroL 90 mcg/actuation HFA Aerosol Inhaler Inhale 2 puffs into the lungs every 4 hours as needed for Wheezing. Use with spacer Active lidocaine (XYLOCAINE) 2 % Gel Apply topically as needed. Apply small amount to back of head and neck 4-6 times daily as needed for headaches and neck pain 30 mL 3 11/18/2015 Active Additional Information Patient not taking.Reported on 11/30/2021 clindamycin (CLINDAGEL) 1 % Gel Apply topically 2 times daily. Active hydrOXYzine (ATARAX) 25 mg TabletIndications :Chronic migraine without aura with status migrainosus, not intractable Take 1 tablet by mouth every 8 hours as needed (headaches.). 30 tablet 12 11/23/2015 Active Additional Information Patient not taking.Reported on 11/30/2021 naproxen sodium (ANAPROX) 220 mg Tablet Take 220 mg by mouth 2 times daily as needed. Active naratriptan (AMERGE) 2.5 mg TabletIndications :Chronic migraine without aura with status migrainosus, not intractable,Intra ctable chronic post-traumatic headache Take 1 tablet by mouth as needed for Migraine. 10 tablet 06/22/2016 Active Additional Information Patient not taking.Reported on 11/30/2021 diclofenac (VOLTAREN) 50 mg Tablet, Delayed Release (E.C.)Indications :Chronic migraine without aura with status migrainosus, not intractable,Intra ctable chronic post-traumatic headache Take 1 tablet by mouth 2 times daily as needed. 30 tablet 3 06/22/2016 Active Additional Information Patient not taking.Reported on 11/30/2021 zonisamide (ZONEGRAN) 50 mg CapsuleIndication s:Chronic migraine without aura with status migrainosus, not intractable,Intra ctable chronic post-traumatic headache Take 1 capsule by mouth daily. 30 capsule 3 06/22/2016 Active Additional Information Patient not taking.Reported on 11/30/2021 SUMAtriptan (Imitrex) 100 mg Tablet 100 mg as needed. 11/21/2021 Active predniSONE (Deltasone) 10 mg Tablet TAKE 4 TABLETS BY MOUTH ONCE DAILY FOR 3 DAYS, THEN 3 TABLETS FOR 3 DAYS, THEN TWO TABLETS FOR 10 DAYS , THEN ONE TABLET FOR 10 DAYS THEN 10/07/2021 Active omeprazole (PriLOSEC) 20 mg Capsule, Delayed Release(E.C.) 20 mg as needed. 11/21/2021 Activ e methocarbamoL (ROBAXIN) 750 mg Tablet TAKE 1 TABLET BY MOUTH 3 TIMES DAILY NEEDED FOR PAIN (MUSCLE RELAXANT) REPLACES CYCLOBENZAPRINE 11/08/2021 Active Active Problems Problem Noted Date Diagnosed Date Acute post-traumatic headache, not intractable 0 11/26/2015 Fatigue 11/26/2015 Balance problem 11/26/2015 Attention or concentration deficit 11/26/2015 Migraines 11/23/2015 Concussion with brief LOC 11/17/2015 Family History Medical History Relation Comments Migraines Father Migraines Sister Relation Status Comments Father Sister Social History Tobacco Use Types Packs/Day Years Used Date Smoking Tobacco: Every Day Cigarettes Smokeless Tobacco: Never Alcohol Use Standard Drinks/Week Comments No 0 (1 standard drink = 0.6 oz pur e alcohol) Sex and Gender Information Value Date Recorded Sex Assigned at Not on file Gender Identity Not on file Sexual Orientation Not on file Last Filed Vital Signs Vital Sign Reading Time Taken Comments Blood Pressure 146/80 11/30/2021 1:07 PM EDT Pulse 109 11/30/2021 1:07 PM EDT Temperature 36.2 ??C (97.1 ??F) 11/30/2021 1:07 PM ED T Respiratory Rate 18 11/18/2015 8:06 AM EDT Oxygen Saturation 99% 11/30/2021 1:07 PM EDT Inhaled Oxygen Concentration - - Weight 103.4 kg (228 lb) 11/30/2021 1:07 PM EDT self reported Height 167.6 cm (5' 6) 11/30/2021 1:07 PM EDT Body Mass Index 36.8 11/30/2021 1:07 PM EDT Plan of Treatment Health Maintenance Due Date Last Done Comments Pneumococcal Vaccine: At-Risk 5-64yrs (1 of 2 - PCV) 0 06/26/1985 HIV screen 06/26/1997 Hepatitis C Screening 06/26/1997 Lipid Screening 06/26/1997 Hepatitis B vaccine (0-59 yrs) (1) 06/26/1998 Tetanus/Diphtheria/Pertussis Vaccines (1 - Tdap) 06/26 HPV test 06/26/2009 PAP Smear 06/26/2009 Breast Cancer Share Decision Needed 2019 Breast Cancer screening 2019 Diabetes Screening (HgbA1C or Glucose) 2019 Covid-19 Vaccine (1 - season) 2023 Influenza (Flu) vaccine (1 o f 1 - Influenza standard series) 11/18/2023 Care Teams Social Media Marketing Specialist Relationship Specialty Start Date End Date Marline Fortune MD [address] [place] [address] PCP - General Family Medicine 01/07/15
--- OUTSIDE RECORDS SUMMARY | 2024-01-10 15:16 | XMS_ITS | Encounter Summary ---
Author Organization [facility] Address [address] [place] [address] Care Team Providers Care Screen Cleaner Name Role Phone Tish Archibald MD Primary Care Provider [phone] Encounter Details Date Type Department Care Team (Late st Contact Info) Description 05/28/2000 Results Only [facility] - Map conversion [address] [place] [address] Tish Archibald MD [address] [id number] Social History Tobacco Use Types [...] Priority Date/Time Associated Diagnosis Comments CYTOPATHOLOGY Routine 05/28/2000 0:00 EST documented in this encounter Results * CYTOPATHOLOGY (05/28/2000 0:00 EST) Pathology Report: CYTOPATHOLOGY REPORT Reports generated via electronic interface contain original data; however they are lacking the format of the original report. Caution should be taken when reading/interpreti ng unformatted reports. Name: ? BUDDY HALEY ? Accession #: ? [id number] : ? 1980 (Age: 19) ??F ?Collect Date: ? 05/28/2000 Location: ? [facility] ? Receive Date: ? 05/30/2000 Provider: ?TISH ARCHIBALD MD Copy to: ? Specimen/Source: ?Conventional Pap Test, Cervix/Endocervix Last Menstrual Period: ? 01/26/00 ? SPECIMEN ADEQUACY ? Satisfactory for evaluation. GENERAL CATEGORIZATION ? Benign Cellular Changes DESCRIPTIVE DIAGNOSIS ? 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 ? Document reviewed and electronically signed by: ? WILL Menon(ASCP) ? Report Date: ??05/30/2000 13:15 End of Report PINA ZIMMER 05/28/2000 05/30/2000 Tish Archibald MD PATHOLOGY ORDERABLES Performing Organization Address City/State/[facility] Co de Phone Number PINA GONZALEZ [facility] [address] [place] [address] documented in this encounter Visit Diagnoses Not on filedocumented in this encounter Care Teams Screen Cleaner Relationship Specialty Start Date End Date Tish Archibald MD [address] [place] [id number] PCP - General 10/27/08 04/18/22 documented as of this encounter
== END 2024-01-10 15:12 | disposition home or self-care (01) ==
LOC: NCHCN 15:11
PROVIDERS: PCP Family Medicine; Visit Provider Family Medicine
DX: Z11.51 Encounter for screening for human papillomavirus (HPV) (principal); Z01.419 Encounter for gynecological examination (general) (routine) without abnormal findings
CPT/HCPCS: 88142; 87624

== ENCOUNTER 2024-01-28 19:20 | Emergency (ER) | payer MEDICAID, SELFPAY ==
--- NOTE | 2024-01-28 19:15 | RT.EKG_ITS ---
APPROVED REPORT Exam: Resting ECG Reason for Exam: epigastric pain going into back Patient Location: E HR:70 bpm ECG Measurements Heart Rate [address] 122 P 65 QRSd 92 QRS 56 QT 402 T 32 QTc 432 Conclusion Sinus rhythm...normal P axis, V-rate 60- [address] segment or T wave abnormalities to suggest occlusive AR
[2024-01-28 19:26] VITALS: BP 124/89; PULSE 75; RESP 20; TEMP 36.8; O2SAT 98
[2024-01-28 19:35] VITALS: BP 124/89; PULSE 75; RESP 20; TEMP 36.8; O2SAT 98
--- NOTE | 2024-01-28 20:00 | DI.RAD_ITS ---
Exam(s) XR CHEST 2V PA LATERAL EXAM: XR CHEST 2V PA LATERAL CLINICAL HISTORY: chest pain TECHNIQUE: 2D digital imaging was performed. Two views. COMPARISON: No exams were available for comparison FINDINGS: HEART: Normal size. Aorta: Not dilated. PULMONARY VASCULATURE: Normal. MEDIASTINUM: Unremarkable. LUNGS: Clear. PLEURAL SPACE: No pleural effusion or pneumothorax. BONE:Unremarkable for age. SOFT TISSUES: Unremarkable. IMPRESSION: No acute abnormality. DATA REPOSITORY: RADIATION DOSE DELIVERED:
[2024-01-28 20:15] LABS: Abs Immature Grans 0.05 10^3/uL (0.0-0.06); Absolute Basophil Count 0.09 10^3/uL (0.0-0.2); Basophils % 0.7 %; Eosinophils % 1.6 %; HCT 44.2 % (36.0-46.0); HGB 14.9 g/dL (11.2-15.7); Immature Grans % 0.4 %; Lymphocytes % 15.6 %; MCHC 33.7 % (32.0-36.0); MCV 95 fL (80-95); MPV 9.3 fL (8.0-11.0); Monocytes % 4.7 %; Platelet Count 298 10^3/uL (130-400); RBC 4.65 10^6/uL (3.93-5.22); RDW 13.6 % (11.7-14.6); RDW-SD 47.8 fL; WBC 12.85 10^3/uL (4.4-10.8)
[2024-01-28 20:27] LABS: Absolute Eosinophil Count 0.21 10^3/uL (0.0-0.7); Absolute Neutrophil Count 9.89 10^3/uL (1.2-6.7)
[2024-01-28 20:30] LABS: ALT 25 U/L (14-59); AST 14 U/L (15-37); Albumin 3.9 g/dL (3.4-5.0); Alkaline Phosphatase 59 U/L (46-116); Anion Gap 8.3 mmol/L (3-11); BUN 6 mg/dL (7-18); Bilirubin, Total 0.35 mg/dL (0.2-1.0); CO2 29.7 mmol/L (21.0-32.0); CREATININE 0.9 mg/dL (0.55-1.02); Chloride 105 mmol/L (98-107); Estimated GFR 80.84 (mL/min/1.73m2); Glucose 107 mg/dL (74-106); Lipase 83 U/L (16-77); Potassium 3.6 mmol/L (3.5-5.1); Sodium 143 mmol/L (136-145); Total Protein 7.5 g/dL (6.4-8.2)
--- NOTE | 2024-01-28 20:30 | DI.CT_ITS ---
Exam(s) CT ABDOMEN PELVIS W EXAM: CT ABDOMEN PELVIS W CLINICAL HISTORY: epigastric pain. TECHNIQUE: Imaging Protocol: Axial computed tomography images with coronal and sagittal reformatted images were created and reviewed CONTRAST MATERIAL: Intravenous: Omnipaque 350 Contrast volume:85 ml Oral: no COMPARISON: No exams were available for comparison FINDINGS: ABDOMEN and PELVIS: Lung Bases: No acute findings. Liver: Normal density. No suspicious mass. Gallbladder and biliary tract: Status post cholecystectomy. No biliary dilation. Pancreas: Normal density. No abnormal calcifications or inflammatory process. No evidence of mass. Spleen: Normal. Kidneys: Normal size, contour and axis. No radiodense stones. No obstructive uropathy. No suspicious masses seen. Adrenal glands: No masses seen. Vasculature: Abdominal aorta non-dilated. Soft tissues: Unremarkable. Bladder: No gross wall thickening. No calculi.No focal mass. Bowel: No obstruction. Focal area of thickening in the gastric antrum. No evidence of perforation. Findings could represent focal gastritis or ulcer. Appendix normal. Peritoneal cavity: No ascites. No focal collection. No mesenteric inflammatory response. Bones: Unremarkable for age. Reproductive organs: Unremarkable. Lymph nodes: No pathologically enlarged lymph nodes. IMPRESSION:: Focal thickening in the antrum of the stomach consistent with focal gastritis. No perf oration. RADIATION DOSE DELIVERED: 814.58mGy.cm Total DLP DATA REPOSITORY: All CT scans at this facility are submitted to the National Radiology Data Registry (NRDR) Dose Index Registry (DIR) with the [employer] (ACR). RADIATION OPTIMIZATION: All CT scans at this facility use at least one of these dose optimization te chniques: automated exposure control; mA and/or kV adjustment per patient size (includes targeted exa ms where dose is matched to clinical indication); or iterative reconstruction.
[2024-01-28 20:35] LABS: Calcium 8.7 mg/dL (8.5-10.1)
--- NOTE | 2024-01-28 20:45 | W.ED.GENAD ---
Discharge Plan Disposition Patient Disposition: Home Condition: Good Discharge Details Clinical Impression: Headache, Gastritis Primary Care Provider: Marline Fortune V ED Provider: Nadya Goodson Home Meds and New Rx's Prescriptions: New ondansetron 4 mg tablet,disintegrating 4 mg PO Q8H PRNQty: 10 0RF Continued albuterol sulfate [ProAir HFA] 8.5 GM HFA aerosol inhaler 2 puff Inhalation Q6H PRN sumatriptan succinate 100 MG tablet 100 mg PO ONCE Qty: 9 Rx Instructions: 9 tabs = 30 day supply. Take prn headache. Ok to repeat in 2 hours. No more than 2 tabs in 24 hours. Discharge Instructions Instructions: Headache, Adult ED, Gastritis ED Additional Instructions: Call your primary care doctor tomorrow to schedule an appointment for within the next 72 hours to followup on your visit here. You can take ondansetron up to every 8 hours as needed for nausea. Return to the emergency department for new or worsening symptoms including fever, inability to keep down fluids, blood in your vomit, new/different/worse pain, or if you have any other concerns. Referrals: Marline Fortune MD [Primary Care Provider] - [facility] General Mode of arrival: ambulatory. Date/Time Provider Initiated Documentation: 01/28/24 19:30. Limitations to Documentation: no limitations. Information obtained by: patient. HPI Narrative: 43yo F with hx migraines presenting from for headache and epigastric pain. THOMPSON started 4-5 days ago, occiptal, dull, feels similar to prior migraines. Does not like to take medication at home, has been trying to 'tough it out'. No fevers, numbness, tingling focal weakness. Over the past three days has had burning epigastric pain radiating to her back, 2 episodes of nonbloody nonbilious emesis starting today. Keeping fluids down. No lower abdominal pain, dysuria, or hematuria. Otherwise in her usual state of health with no chest pain, shortness of breath, or other concerns. Related Data Home Medications ?Medication ?Instructions ?Recorded ?Confirmed albuterol sulfate 90 mcg/actuation 2 puff inhalation Q6H PRN 04/15/15 01/28/24 aerosol inhaler (ProAir HFA) sumatriptan succinate 100 mg tablet 100 mg PO ONCE #9 tab-caps 03/07/16 11/11/24 ondansetron 4 mg disintegrating 4 mg PO Q8H PRN #10 tabs 01/28/24 tablet Previous Rx's ?Medication ?Instructions ?Recorded ondansetron 4 mg disintegrating 4 mg PO Q8H PRN #10 tabs 01/28/24 tablet Allergies Allergy/AdvReac Type Severity Reaction Status Date / Time varenicline tartrate (From Allergy Severe Other (See Unverified 01/28/24 19:33 Chantix) Comment) latex Allergy Intermediate Hives Unverified 01/28/24 19:33 topiramate (From Topamax) Allergy Intermediate Other (See Unverified 01/28/24 19:33 Comment) acetaminophen (From Percocet) Allergy Itching Unverified 01/28/24 19:33 copper Allergy Hives Unverified 01/28/24 19:33 morphine Allergy Itching Unverified 01/28/24 19:33 onabotulinumtoxinA (From Allergy Nausea Unverified 01/28/24 19:33 Botox) oxycodone (From Percocet) Allergy Nausea Unverified 01/28/24 19:33 DEPO PROVERA Allergy Severe CRITICAL Uncoded 01/28/24 19:33 ERTTHROMYCIN Allergy Severe Nausea Uncoded 01/28/24 19:33 General Stated Complaint: Abd Prob JAY JAY: 3 Review of Systems Narrative: see HPI Exam Narrative Exam Narrative: General: Alert, well appearing, well nourished, in no acute distress. Head: Normocephalic, atraumatic Neck: Trachea midline, ?Neck supple. ENT: ?MMM.? No oropharygeal lesions or exudate. Cardiac: ?RRR, no murmurs appreciated Resp: No respiratory distress. CTAB. Abd: ?Soft, non-distended, mild epigastric tenderness with no rebound or guarding. Back: Right mid-thoracic paraspinal spasm and tenderness. Extremities: ?No deformities.? No peripheral edema. Neuro: ? GCS 15.? PERRL.? EOMI.? Fluent speech, no dysarthria. Motor- 5/5 strength symmetric bilateral upper and lower extremities including Sensation- ?Intact to light touch and symmetric multiple dermatomes including upper and lower extremities Coordination- No dysmetria on finger to nose Gait/station: ?Normal stance.? No truncal ataxia. Steady gait with equal normal steps CRANIAL NERVES: II: Pupils equal and reactive, III, IV, : EOM intact, no gaze preference or deviation, no nystagmus. V: normal sensation in V1, V2, and V3 segments bilaterally VII: no asymmetry, no nasolabial fold flattening VIII: normal hearing to speech IX, X: normal palatal elevation, no uvular deviation XI: 5/5 head turn and 5/5 shoulder shrug bilaterally XII: midline tongue protrusion Course Vital Signs Vital signs: Vital Signs Temperature 36.8 C 01/28/24 19:26 Pulse 75 01/28/24 19:26 Respiratory Rate 20 01/28/24 19:26 Blood Pressure 124/89 01/28/24 19:26 Pulse Oximetry 98 01/28/24 19:26 Temperature 36.8 C 01/28/24 19:35 Temperature Source Tympanic 01/28/24 19:35 Pulse 75 01/28/24 19:35 Respiratory Rate 20 01/28/24 19:35 Respiratory Effort Normal, Non-Labored 01/28/24 19:32 Blood Pressure 124/89 01/28/24 19:35 Pulse Oximetry 98 01/28/24 19:35 Pain Level 6 01/28/24 20:02 Lab/Test Results Lab/Test Results: Laboratory Tests Range/Units 01/28/24 19:56 WBC (4.4-10.8) 10^3/uL 12.85 H RBC (3.93-5.22) 10^6/uL 4.65 Hgb (11.2-15.7) g/dL 14.9 Hct (36.0-46.0) % 44.2 MCV (80-95) fL 95 MCH (27.0-33.0) pg 32.0 MCHC (32.0-36.0) % 33.7 RDW (11.7-14.6) % 13.6 Plt Count (130-400) 10^3/uL 298 MPV (8.0-11.0) fL 9.3 Immature Gran % % 0.4 Neutrophils % % 77.0 Lymphocytes % % 15.6 Monocytes % % 4.7 Eosinophils % % 1.6 Basophils % % 0.7 Nucleated RBC % (0.0-0.3) % 0.0 Absolute Neutrophils (1.2-6.7) 10^3/uL 9.89 H Absolute Lymphocytes (1.2-3.4) 10^3/uL 2.00 Absolute Monocytes (0.1-0.8) 10^3/uL 0.60 Absolute Eosinophils (0.0-0.7) 10^3/uL 0.21 Absolute Basophils (0.0-0.2) 10^3/uL 0.09 Sodium (136-145) mmol/L 143 Potassium (3.5-5.1) mmol/L 3.6 Chloride (98-107) mmol/L 105 Carbon Dioxide (21.0-32.0) mmol/L 29.7 Anion Gap (3-11) mmol/L 8.3 BUN (7-18) mg/dL 6 L Creatinine (0.55-1.02) mg/dL 0.9 Est GFR (CKD-EPI 2020) (mL/min/1.73m2) 80.84 Glucose (74-106) mg/dL 107 H Calcium (8.5-10.1) mg/dL 8.7 Total Bilirubin (0.2-1.0) mg/dL 0.35 AST (15-37) U/L 14 L ALT (14-59) U/L 25 Alkaline Phosphatase (46-116) U/L 59 Total Protein (6.4-8.2) g/dL 7.5 Albumin (3.4-5.0) g/dL 3.9 Lipase (16-77) U/L 83 H POC- Test(urine) Negative Medical Decision Making 43yoF with hx migraines presenting from for THOMPSON x 5 days and 2 days of epigastric pain, emesis x 2 nonbloody nonbilious. Vital signs reassuring on arrival. Normal neurologic exam, minimal epigastric tenderness on abdominal exam. Also has right midthoracic paraspinal tenderness on exam. No red flags for headache. Not concerned for SAH, intracranial mass, giant cell arteritis, meningitis, encephalitis, aortic dissection, pulmonary embolism; would not CT imaging or LP. Will treat symptoms with Tylenol, toradol, compazine, benadryl, ativan (for muscle spasm), GI cocktail & carafate while awaiting results of workup. -EKG from triage NSR, appropriate intervals, no ST segment or T wave abnormalities to suggest occlusive RI -Labs reviewed as below, CBC reassuring (mild non-specific leukocytosis), CMP with no actionable abnormalities, lipase not suggestive of pancreatitis, respiratory viral swab negative. -CXR independently reviewed, no focal pneumonia or pneuomthorax on my view, agree with radiology read below. -CT independently reviewed, no obstruction or free fluid on my view, radiology read below with likely gastritis. On reassessment she reports symptoms have resolved. No further headache, abdominal pain resolved. Requests discharge home which is reasonable. Advised to followup with PCP. Discharge instructions and return precautions were reviewed with patient who verbalized understanding. All questions were answered and she is in full agreement with the plan. Imaging Data Radiologic Study: Imaging: X-Ray and CT Scan Radiologist's impression: CT: MPRESSION: 1. Focal thickening of the gastric antral wall may represent infectious or inflammatory gastritis. Consider correlation with endoscopic visualization. 2. Otherwise, no acute abdominal or pelvic pathology is identified XR: IMPRESSION: No radiographic evidence for acute cardiopulmonary disease. Lab Data Lab results reviewed: Yes I reviewed the patient's lab results. Labs: Laboratory Tests Range/Units 01/28/24 01/28/24 19:56 21:06 WBC (4.4-10.8) 10^3/uL 12.85 H RBC (3.93-5.22) 10^6/uL 4.65 Hgb (11.2-15.7) g/dL 14.9 Hct (36.0-46.0) % 44.2 MCV (80-95) fL 95 MCH (27.0-33.0) pg 32.0 MCHC (32.0-36.0) % 33.7 RDW (11.7-14.6) % 13.6 Plt Count (130-400) 10^3/uL 298 MPV (8.0-11.0) fL 9.3 Immature Gran % % 0.4 Neutrophils % % 77.0 Lymphocytes % % 15.6 Monocytes % % 4.7 Eosinophils % % 1.6 Basophils % % 0.7 Nucleated RBC % (0.0-0.3) % 0.0 Absolute Neutrophils (1.2-6.7) 10^3/uL 9.89 H Absolute Lymphocytes (1.2-3.4) 10^3/uL 2.00 Absolute Monocytes (0.1-0.8) 10^3/uL 0.60 Absolute Eosinophils (0.0-0.7) 10^3/uL 0.21 Absolute Basophils (0.0-0.2) 10^3/uL 0.09 Sodium (136-145) mmol/L 143 Potassium (3.5-5.1) mmol/L 3.6 Chloride (98-107) mmol/L 105 Carbon Dioxide (21.0-32.0) mmol/L 29.7 Anion Gap (3-11) mmol/L 8.3 BUN (7-18) mg/dL 6 L Creatinine (0.55-1.02) mg/dL 0.9 Est GFR (CKD-EPI 2020) (mL/min/1.73m2) 80.84 Glucose (74-106) mg/dL 107 H Calcium (8.5-10.1) mg/dL 8.7 Total Bilirubin (0.2-1.0) mg/dL 0.35 AST (15-37) U/L 14 L ALT (14-59) U/L 25 Alkaline Phosphatase (46-116) U/L 59 Total Protein (6.4-8.2) g/dL 7.5 Albumin (3.4-5.0) g/dL 3.9 Lipase (16-77) U/L 83 H COVID-19 Source Nasopharynx SARS-CoV-2 (PCR) (Negative) Negative Influenza Type A (PCR) (Negative) Negative Influenza Type B (PCR) (Negative) Negative RSV (PCR) (Negative) Negative Quality:SDOH Health Related Social Needs: No Data to Display PFSH All Active Problems (Updated 01/28/24 @ 22:34 by Nadya Goodson MD) Gastritis (Acute) Headache (Acute) Cervical spondylosis without myelopathy (Acute) Concussion without loss of consciousness, sequela (Acute) Nodular thyroid disease (Acute) Posttraumatic stress disorder (Acute) Syncope and collapse (Acute) Migraine headache (Chronic) Neck pain (Acute) Neck pain, acute (Acute) Medical History Syncope Asthma, mild intermittent, well-controlled Cholelithiasis History of pineal cyst Headache Biceps tendinitis of right shoulder Cystic acne Left shoulder pain Mood disorder due to known physiological condition with depressive features Upper respiratory infection, acute Acute back pain Left knee pain Great toe pain Cellulitis Dysuria Flank pain Cough Shortness of breath Sinusitis Social History Smoking/Tobacco Use Status: Current every day Smoking risk assessment performed?: Yes Alcohol Intake: current Alcohol Intake frequency: a few times a month Drug use: Never Substance use type: does not use Do you feel safe in your relationship?: Yes
[2024-01-28] MEDS: diphenhydrAMINE 50 MG/ML VIAL IVP (21:12)
[2024-01-28] MEDS: Ketorolac 15 MG/ML VIAL IVP (21:12)
[2024-01-28] MEDS: Acetaminophen 500 MG TAB 1000 MG PO (21:12)
[2024-01-28] MEDS: Mylanta Suspension 30 ML CUP (21:13)
[2024-01-28] MEDS: Prochlorperazine 10 MG/2 ML VIAL IVP (21:13)
[2024-01-28] MEDS: Sucralfate 1 GM TAB PO (21:13)
[2024-01-28] MEDS: LORazepam 2 MG/ML VIAL 0.5 MG IVP (21:13)
[2024-01-28] MEDS: Lidocaine 2% Viscous 15 ML CUP (21:13)
--- NOTE | 2024-01-28 21:19 | DI.VRAD_ITS ---
PROCEDURE INFORMATION: Exam: XR Chest Exam date and time: 01/28/2024 8:24 PM Age: 43 years old Clinical indication: Other: Chest pain radiating to back TECHNIQUE: Imaging protocol: Radiologic exam of the chest. Views: 2 views. COMPARISON: MR C SPINE T SPINE WO 09/27/2021 12:13 PM FINDINGS: Lungs: Unremarkable. No consolidation. Pleural spaces: Unremarkable. No pleural effusion. No pneumothorax. Heart/Mediastinum: Unremarkable. No cardiomegaly. Bones/joints: Unremarkable. IMPRESSION: No radiographic evidence for acute cardiopulmonary disease. Dictated and Authenticated by: Dave Rao MD. Ordering:CARMEN Covington MD
[2024-01-28] MEDS: Omnipaque 350 MG/ML 100 ML BTL 85 ML IJ (21:33)
[2024-01-28] MEDS: Normal Saline - Diluent 50 ML VIAL IJ (21:34)
--- NOTE | 2024-01-28 21:45 | DI.VRAD_ITS ---
PROCEDURE INFORMATION: Exam: CT Abdomen And Pelvis With Contrast Exam date and time: 01/28/2024 9:27 PM Age: 43 years old Clinical indication: Abdominal pain; Patient HX: Epigastric pain TECHNIQUE: Imaging protocol: Computed tomography of the abdomen and pelvis with contrast. Radiation optimization: All CT scans at this facility use at least one of these dose optimization techniques: automated exposure control; mA and/or kV adjustment per patient size (includes targeted exams where dose is matched to clinical indication); or iterative reconstruction. Contrast material: [id number]; Contrast volume: 85 ml; Contrast route: INTRAVENOUS (IV); COMPARISON: MR C SPINE T SPINE WO 09/27/2021 12:13 PM FINDINGS: Lungs: Lung bases are clear. Heart is normal in size. Liver: The liver is unremarkable. Subcentimeter calcified granuloma inferior right liver noted. Nonspecific low-density foci of the liver statistically favor benign processes, no further follow-up needed, measuring as large as 7 mm. Gallbladder and biliary ducts: Prior cholecystectomy noted. Pancreas: The pancreas is unremarkable. Spleen: The spleen is unremarkable. Adrenal glands: The adrenal glands are unremarkable. Kidneys and ureters: Kidneys are unremarkable. No mass or hydronephrosis. Stomach and bowel: Focal thickening of the gastric antral wall may represent infectious or inflammatory gastritis. Consider correlation with endoscopic visualization. Appendix: No evidence of appendicitis. Intraperitoneal space: Unremarkable. No free air. No significant fluid collection. Vasculature: Unremarkable. No abdominal aortic aneurysm. Lymph nodes: Unremarkable. No enlarged lymph nodes. Urinary bladder: Unremarkable as visualized. Reproductive: Unremarkable as visualized. Bones/joints: Unremarkable. No acute fracture. Soft tissues: Unremarkable. IMPRESSION: 1. Focal thickening of the gastric antral wall may represent infectious or inflammatory gastritis. Consider correlation with endoscopic visualization. 2. Otherwise, no acute abdominal or pelvic pathology is identified. Dictated and Authenticated by: Dave Rao MD. Ordering:CARMEN Covington MD
[2024-01-28 21:52] LABS: COVID-19 PCR Negative (Negative); Influenza A PCR Negative (Negative); Influenza B PCR Negative (Negative); RSV PCR Negative (Negative)
[2024-01-28 21:53] LABS: Source Nasopharynx
[2024-01-28 22:45] VITALS: BP 104/62; PULSE 88; RESP 15; O2SAT 99
[2024-01-28 22:49] VITALS: BP 104/62; PULSE 88; RESP 15; TEMP 36.8; O2SAT 99
== END 2024-01-28 22:50 | disposition home or self-care (01) ==
PROVIDERS: Emergency Provider Student in an Organized Health Care Education/Training Program; PCP Family Medicine
DX: K29.70 Gastritis, unspecified, without bleeding (principal); R51.9 Headache, unspecified; F17.210 Nicotine dependence, cigarettes, uncomplicated
CPT/HCPCS: 36415; 80053; 81025; 83690; 87637; 93005; 96374; 96375; 99285; 71046; 74177; 85025; 93010; J0780; J1200; J1885; J2060; J3490

== ENCOUNTER 2024-01-31 17:49 | Outpatient (REF) | payer MEDICAID, SELFPAY ==
[2024-01-31 19:31] LABS: Bacteria Few HPF (Negative); C & S Indicated? No; Crystals Negative HPF (Negative); Epithelial Cells Few HPF (Negative); Mucus Negative (Negative); WBC Negative HPF (0-5)
== END 2024-01-31 17:50 | disposition home or self-care (01) ==
LOC: NCHCN 17:49
PROVIDERS: PCP Family Medicine; Visit Provider Family Medicine
DX: R10.9 Unspecified abdominal pain (principal)
CPT/HCPCS: 81015

== ENCOUNTER 2024-02-15 11:05 | Outpatient (CLI) | payer MEDICAID, SELFPAY ==
[2024-02-15 10:39] LABS: Abs Immature Grans 0.03 10^3/uL (0.0-0.06); Absolute Basophil Count 0.07 10^3/uL (0.0-0.2); Absolute Eosinophil Count 0.23 10^3/uL (0.0-0.7); Absolute Lymphocyte Count 2.08 10^3/uL (1.2-3.4); Absolute Monocyte Count 0.42 10^3/uL (0.1-0.8); Absolute Neutrophil Count 6.51 10^3/uL (1.2-6.7); Basophils % 0.7 %; Eosinophils % 2.5 %; HCT 42.8 % (36.0-46.0); HGB 14.2 g/dL (11.2-15.7); Immature Grans % 0.3 %; Lymphocytes % 22.3 %; MCH 31.6 pg (27.0-33.0); MCHC 33.2 % (32.0-36.0); MCV 95 fL (80-95); MPV 9.7 fL (8.0-11.0); Monocytes % 4.5 %; Neutrophils % 69.7 %; Platelet Count 297 10^3/uL (130-400); RBC 4.49 10^6/uL (3.93-5.22); RDW 13.1 % (11.7-14.6); RDW-SD 46.4 fL; WBC 9.34 10^3/uL (4.4-10.8)
[2024-02-15 10:53] LABS: ALT 25 U/L (14-59); AST 13 U/L (15-37); Albumin 3.6 g/dL (3.4-5.0); Alkaline Phosphatase 66 U/L (46-116); Anion Gap 7.3 mmol/L (3-11); BUN 9 mg/dL (7-18); Bilirubin, Total 0.33 mg/dL (0.2-1.0); CO2 28.7 mmol/L (21.0-32.0); CREATININE 0.9 mg/dL (0.55-1.02); Calcium 8.9 mg/dL (8.5-10.1); Chloride 106 mmol/L (98-107); Estimated GFR 80.84 (mL/min/1.73m2); Glucose 106 mg/dL (74-106); Potassium 4.2 mmol/L (3.5-5.1); Sodium 142 mmol/L (136-145); Total Protein 7.1 g/dL (6.4-8.2)
== END 2024-02-15 11:06 | disposition home or self-care (01) ==
LOC: LOS 11:05
PROVIDERS: PCP Family Medicine; Visit Provider Physician Assistant
DX: R51.9 Headache, unspecified (principal); N39.0 Urinary tract infection, site not specified
CPT/HCPCS: 36415; 80053; 85025

== ENCOUNTER 2024-02-15 16:39 | Outpatient (REF) | payer MEDICAID, SELFPAY ==
[2024-02-15 20:56] LABS: Bilirubin Negative (Negative); Blood Trace-intact (Negative); Clarity Clear (Clear); Glucose Negative (Negative); Ketones Negative (Negative); Leukocyte Esterase Trace (Negative); Nitrite Negative (Negative); Specific Gravity 1.015 (1.005-1.025); Urobilinogen 0.2 mg/dL (Up to 0.2)
[2024-02-15 21:06] LABS: Bacteria Few HPF (Negative); C & S Indicated? C&S Done As Ordered; Casts Negative LPF (Negative); Crystals Negative HPF (Negative); Epithelial Cells Few HPF (Negative); Mucus Negative (Negative)
== END 2024-02-15 16:40 | disposition home or self-care (01) ==
LOC: LBN 16:39
PROVIDERS: PCP Family Medicine; Visit Provider Physician Assistant
DX: R31.9 Hematuria, unspecified (principal); N39.0 Urinary tract infection, site not specified
CPT/HCPCS: 81003; 81015; 87086

== ENCOUNTER 2024-04-05 12:49 | Emergency (ER) | payer MEDICAID, SELFPAY ==
[2024-04-05 12:57] VITALS: BP 118/79; PULSE 86; RESP 18; TEMP 36.4; O2SAT 95
--- NOTE | 2024-04-05 13:00 | DI.RAD_ITS ---
Exam(s) XR ANKLE RT COMPLETE EXAM: XR ANKLE RT COMPLETE CLINICAL HISTORY: ankle pain. TECHNIQUE: 2D digital imaging was performed. Three views. COMPARISON: CR RIGHT ANKLE COMPLETE from 07/12/2007 FINDINGS: BONES: No acute fracture is present. No bony destructive lesion is seen. JOINTS: The ankle mortise is normally aligned. Ankle joint effusion. SOFT TISSUE: Swelling. Chronic appearing calcifications. IMPRESSION: Soft tissue swelling ankle joint effusion. No evidence of fracture DATA REPOSITORY: RADIATION DOSE DELIVERED:
--- NOTE | 2024-04-05 13:15 | ED.GENADUL_ITS ---
Discharge Plan Disposition Patient Disposition: Home Discharge Details Clinical Impression: Pain in right ankle Primary Care Provider: Marline Fortune V ED Provider: Obed Morris Home Meds and New Rx's Prescriptions: No Action omeprazole 20 mg capsule,delayed release(DR/EC) 20 mg PO DAILY albuterol sulfate [ProAir HFA] 8.5 GM HFA aerosol inhaler 2 puff Inhalation Q6H PRN sumatriptan succinate 100 MG tablet 100 mg PO ONCE Qty: 9 Rx Instructions: 9 tabs = 30 day supply. Take prn headache. Ok to repeat in 2 hours. No more than 2 tabs in 24 hours. ondansetron 4 mg tablet,disintegrating 4 mg PO Q8H PRNQty: 10 0RF Discharge Instructions Additional Instructions: Your x-ray does not demonstrate an acute abnormality of your bones. Wear the splint provided as needed for comfort and stability. Please take 600 mg of Motrin every 6 hours for discomfort. Please schedule a follow-up with your primary care provider for reevaluation of any ongoing symptoms as you may benefit from additional imaging or physical therapy referral if your symptoms are not improving. HPI General Date/Time Provider Initiated Documentation: 04/05/24 13:00 . Limitations to Documentation: no limitations . Information obtained by: patient . HPI Narrative: 43-year-old female with past medical history of migraines, arthritis, tobacco abuse presents for evaluation of right ankle pain. She reports the onset of some ankle pain and stiffness yesterday. It was associated with some mild hip pain. She reports that symptoms did not improve despite a topical muscle rub and oral ibuprofen. She reports a sensation that something feels like it is catching in her ankle. She is concerned that it was clotting off the blood supply to her foot and she states that her foot turned purple earlier today but she thinks that has gotten better. Related Data Home Medications ?Medication ?Instructions ?Recorded ?Confirmed albuterol sulfate 90 mcg/actuation 2 puff inhalation Q6H PRN 04/15/15 02/15/24 aerosol inhaler (ProAir HFA) sumatriptan succinate 100 mg tablet 100 mg PO ONCE #9 tab-caps 05/24/15 02/15/24 ondansetron 4 mg disintegrating 4 mg PO Q8H PRN #10 tabs 01/28/24 02/15/24 tablet omeprazole 20 mg capsule,delayed 20 mg PO DAILY 02/15/24 02/15/24 release Previous Rx's ?Medication ?Instructions ?Recorded ondansetron 4 mg disintegrating 4 mg PO Q8H PRN #10 tabs 01/28/24 tablet Allergies Allergy/AdvReac Type Severity Reaction Status Date / Time varenicline tartrate (From Allergy Severe Other (See Unverified 02/15/24 09:04 Chantix) Comment) latex Allergy Intermediate Hives Unverified 02/15/24 09:04 topiramate (From Topamax) Allergy Intermediate Other (See Unverified 02/15/24 09:04 Comment) acetaminophen (From Percocet) Allergy Itching Unverified 02/15/24 09:04 copper Allergy Hives Unverified 02/15/24 09:04 morphine Allergy Itching Unverified 02/15/24 09:04 onabotulinumtoxinA (From Allergy Nausea Unverified 02/15/24 09:04 Botox) oxycodone (From Percocet) Allergy Nausea Unverified 02/15/24 09:04 DEPO PROVERA Allergy Severe CRITICAL Uncoded 02/15/24 09:04 ERTTHROMYCIN Allergy Severe Nausea Uncoded 02/15/24 09:04 General Stated Complaint: Orthopedic JAY JAY: 4 Exam Narrative Exam Narrative: Review of Systems: All systems reviewed & are unremarkable except as noted in HPI and below Well-developed, no acute distress RRR Unlabored respiratory effort The nontender no effusion unremarkable, no calf tenderness, there is somewhat bright lateral malleoli are tenderness and swelling, the foot is warm and well- perfused with a 2+ distal pulse Course Vital Signs Vital signs: Vital Signs Temperature 36.4 C 04/05/24 12:57 Pulse 86 04/05/24 12:57 Respiratory Rate 18 04/05/24 12:57 Blood Pressure 118/79 04/05/24 12:57 Pulse Oximetry 95 04/05/24 12:57 Temperature 36.4 C 04/05/24 12:57 Temperature Source Oral 04/05/24 12:57 Pulse 86 04/05/24 12:57 Respiratory Rate 18 04/05/24 12:57 Blood Pressure 118/79 04/05/24 12:57 Pulse Oximetry 95 04/05/24 12:57 Oxygen Delivery Method Room Air 04/05/24 12:57 Oxygen Flow Rate 0 04/05/24 12:57 Medical Decision Making Emergent evaluation of atraumatic right ankle pain. The patient denies any trauma. Or other injury that may have started this pain. She has been taking some NSAIDs without significant relief. She is able to ambulate. She feels some instability in her ankle. There is no concern for vascular compromise at all. The patient does report a history of arthritis will get x-ray to evaluate for acute bony process. X-ray reviewed and independently interpreted: There is no evidence of acute bony injury. A lace up brace was provided for comfort. Recommend close follow-up with PCP, continued NSAID use if symptoms are not improving. Quality:SDOH Health Related Social Needs: No Data to Display PFSH All Active Problems (Updated 04/05/24 @ 13:32 by Obed Morris MD) Pain in right ankle (Acute) Cervical spondylosis without myelopathy (Acute) Concussion without loss of consciousness, sequela (Acute) Nodular thyroid disease (Acute) Posttraumatic stress disorder (Acute) Syncope and collapse (Acute) Migraine headache (Chronic) Neck pain (Acute) Neck pain, acute (Acute) Medical History Syncope Asthma, mild intermittent, well-controlled Cholelithiasis History of pineal cyst Headache Biceps tendinitis of right shoulder Cystic acne Left shoulder pain Mood disorder due to known physiological condition with depressive features Upper respiratory infection, acute Acute back pain Left knee pain Great toe pain Cellulitis Dysuria Flank pain Cough Shortness of breath Sinusitis Social History Smoking/Tobacco Use Status: Current every day Smoking risk assessment performed?: Yes Alcohol Intake: current Alcohol Intake frequency: a few times a month Drug use: Never Substance use type: does not use Do you feel safe in your relationship?: Yes
--- NOTE | 2024-04-05 13:36 | DI.VRAD_ITS ---
PROCEDURE INFORMATION: Exam: XR Right Ankle Exam date and time: 04/05/2024 1:22 PM Age: 43 years old Clinical indication: Pain; Ankle; Right; Additional info: Ankle pain TECHNIQUE: Imaging protocol: Radiologic exam of the right ankle. Views: 3 or more views. COMPARISON: No relevant prior studies available. FINDINGS: Bones/joints: There is soft tissue swelling involving the lateral malleolus. There appears to be an ankle effusion. Bone density is appropriate. Bony alignment is anatomic. No evidence for fracture. Soft tissues: See Bones/joints finding. IMPRESSION: Lateral malleolar soft tissue swelling. Suspect ankle effusion. No evidence for fracture. Dictated and Authenticated by: Helena Paulson MD. Ordering:[facility] Alexandra Cazares MD
== END 2024-04-05 13:45 | disposition home or self-care (01) ==
PROVIDERS: Emergency Provider Emergency Medicine; PCP Family Medicine
DX: M25.571 Pain in right ankle and joints of right foot (principal); M25.471 Effusion, right ankle
CPT/HCPCS: 99283; 73610

== ENCOUNTER 2024-04-28 15:53 | Emergency (ER) | payer MEDICAID, SELFPAY ==
--- NOTE | 2024-04-28 16:00 | DI.RAD_ITS ---
Exam(s) XR CHEST 2V PA LATERAL EXAM: XR CHEST 2V PA LATERAL CLINICAL HISTORY: SOB TECHNIQUE: 2D digital imaging was performed. Two views. COMPARISON: CR,XR XR CHEST 2V PA LATERAL from 01/28/2024 FINDINGS: HEART: Normal size. Aorta: Not dilated. PULMONARY VASCULATURE: Prominent. MEDIASTINUM: Unremarkable. LUNGS: Mild peribronchial wall thickening. Streaky perihilar densities. The findings could represen t viral pneumonitis and bronchiolitis. No focal area of consolidation. PLEURAL SPACE: No pleural effusion or pneumothorax. BONE:Unremarkable for age. SOFT TISSUES: Unremarkable. IMPRESSION: Bronchial wall thickening and perihilar interstitial edema could indicate viral pneumonitis and bronc hiolitis. DATA REPOSITORY: RADIATION DOSE DELIVERED:
[2024-04-28 16:03] VITALS: BP 152/68; PULSE 111; RESP 28; TEMP 37.9; O2SAT 95
--- NOTE | 2024-04-28 16:15 | ED.GENADUL_ITS ---
Discharge Plan Disposition Patient Disposition: Home Condition: Good Discharge Details Clinical Impression: Asthma, Influenza A Primary Care Provider: Marline Fortune V ED Provider: Nadya Goodson Home Meds and New Rx's Prescriptions: New prednisone 50 mg tablet 50 mg PO DAILY Qty: 5 0RF Continued omeprazole 20 mg capsule,delayed release(DR/EC) 20 mg PO DAILY albuterol sulfate [ProAir HFA] 8.5 GM HFA aerosol inhaler 2 puff Inhalation Q6H PRN sumatriptan succinate 100 MG tablet 100 mg PO ONCE Qty: 9 Rx Instructions: 9 tabs = 30 day supply. Take prn headache. Ok to repeat in 2 hours. No more than 2 tabs in 24 hours. ondansetron 4 mg tablet,disintegrating 4 mg PO Q8H PRNQty: 10 0RF methocarbamol 750 mg tablet Patient Comments: TAKE ONE TABLET BY MOUTH THREE TIMES A DAY NEEDED FOR PAIN (MUSCLE RELAXANT) Discontinued prednisone 10 mg tablet Patient Comments: TAKE 6 TABLETS BY MOUTH DAILY FOR 2 DAYS, 5 TABLETS DAILY FOR 4 DAYS, 4 TABLETS DAILY FOR 4 DAYS, 3 TABLETS DAILY FOR 4 DAYS, 2 TABLETS MASOUD Discharge Instructions Instructions: Asthma, Adult ED, Flu, Adult ED Additional Instructions: Albuterol inhaler as needed. Prednisone once a day for the next 5 days. Call your primary care doctor in the morning to schedule an appointment within the following 72 hours to followup on your visit here. Return to the emergency department for new or worsening symptoms including if your breathing worsens and does not improve with home albuterol, or if you have any other concerns. Referrals: Marline Fortune MD [Primary Care Provider] - [facility] General Mode of arrival: ambulatory . Date/Time Provider Initiated Documentation: 04/28/24 15:58 . Limitations to Documentation: no limitations . Information obtained by: patient . HPI Narrative: 43yo F with hx asthma presenting with shortness of breath unrelieved by home albuterol. Has had about one week of cough. Progressively worsening shortness of breath and wheezing over the past 2 days. Also nausea, vomiting, and dull mild headache. Doing okay with fluids. No recent head injuries. Otherwise in her usual state of health with no fevers, chills, rash, abdominal pain, numbness, focal weakness, or other concerns. Related Data Home Medications ?Medication ?Instructions ?Recorded ?Confirmed albuterol sulfate 90 mcg/actuation 2 puff inhalation Q6H PRN 04/15/15 04/28/24 aerosol inhaler (ProAir HFA) sumatriptan succinate 100 mg tablet 100 mg PO ONCE #9 tab-caps 05/24/15 04/28/24 ondansetron 4 mg disintegrating 4 mg PO Q8H PRN #10 tabs 01/28/24 04/28/24 tablet omeprazole 20 mg capsule,delayed 20 mg PO DAILY 02/15/24 04/28/24 release methocarbamol 750 mg tablet mg 04/28/24 prednisone 50 mg tablet 50 mg PO DAILY #5 tabs 04/28/24 Previous Rx's ?Medication ?Instructions ?Recorded ondansetron 4 mg disintegrating 4 mg PO Q8H PRN #10 tabs 01/28/24 tablet prednisone 50 mg tablet 50 mg PO DAILY #5 tabs 04/28/24 Allergies Allergy/AdvReac Type Severity Reaction Status Date / Time varenicline tartrate (From Allergy Severe Other (See Unverified 04/28/24 16:02 Chantix) Comment) latex Allergy Intermediate Hives Unverified 04/28/24 16:02 topiramate (From Topamax) Allergy Intermediate Other (See Unverified 04/28/24 16:02 Comment) acetaminophen (From Percocet) Allergy Itching Unverified 04/28/24 16:02 copper Allergy Hives Unverified 04/28/24 16:02 morphine Allergy Itching Unverified 04/28/24 16:02 onabotulinumtoxinA (From Allergy Nausea Unverified 04/28/24 16:02 Botox) oxycodone (From Percocet) Allergy Nausea Unverified 04/28/24 16:02 DEPO PROVERA Allergy Severe CRITICAL Uncoded 04/28/24 16:02 ERTTHROMYCIN Allergy Severe Nausea Uncoded 04/28/24 16:02 General Stated Complaint: RespSymp JAY JAY: 3 Review of Systems Narrative: see HPI Exam Narrative Exam Narrative: General: Alert, non-toxic Head: Normocephalic, atraumatic Neck: Trachea midline, ?Neck supple. ENT: ?MMM.? Cardiac: ?Tachycardiac, regular, no murmurs appreciated Resp: Diffuse expiratory wheezes. Good air movement. Speaking in 4-5 word sentences. No retractions. Abd: ?Soft, non-distended, nontender Extremities: ?No deformities.? No peripheral edema. Neurologic: GCS 15. ? Moves all extremities freely against gravity Course Vital Signs Vital signs: Vital Signs Temperature 37.9 C H 04/28/24 16:03 Pulse 111 H 04/28/24 16:03 Respiratory Rate 28 H 04/28/24 16:03 Blood Pressure 152/68 H 04/28/24 16:03 Pulse Oximetry 95 04/28/24 16:03 Temperature 37.9 C H 04/28/24 16:03 Temperature Source Oral 04/28/24 16:03 Pulse 111 H 04/28/24 16:03 Respiratory Rate 28 H 04/28/24 16:03 Blood Pressure 152/68 H 04/28/24 16:03 Pulse Oximetry 95 04/28/24 16:03 Pain Level 7 04/28/24 16:03 Medical Decision Making 43yo F with hx asthma presenting with shortness of breath unrelieved by home albuterol in the setting of one week of flu-like symptoms. No fevers. Borderline tachycardiac on arrival in the setting of frequent albuterol use at home, tachypneic in high 20's. Wheezing on exam, no retractions, moving good air. Will treat with continuous albuterol and dose of methylprednisolone. Not concerned for sepsis, serious bacterial infection. Labs reviewed as below, CBC reassuring (mild leukocytosis, non-specific), CMP with no actionable abnormalities, VBG reassuring. Not . Respiratory viral swab + for flu A. CXR independently reviewed; no focal pneumonia on my view, radiology read below. On reassessment one hour after completion of continuous albuterol she reports her breathing has much improved. Lungs CTAB, speaking in full sentences, no increased work of breathing. Remains slightly tachycardiac which is not unexpected given albuterol. Requesting discharge home which is reasonable. Will prescribe 5 day course of prednisone. Discharged home; discharge instructions and return precautions were reviewed with patient who verbalized understanding. All questions were answered and she is in full agreement with the plan. Imaging Data Radiologic Study: Imaging: X-Ray Radiologist's impression: IMPRESSION: Bronchial wall thickening and perihilar interstitial edema could indicate viral pneumonitis and bronchiolitis Lab Data Lab results reviewed: Yes I reviewed the patient's lab results. Labs: Laboratory Tests Range/Units 04/28/24 04/28/24 16:23 16:28 WBC (4.4-10.8) 10^3/uL 11.77 H RBC (3.93-5.22) 10^6/uL 4.42 Hgb (11.2-15.7) g/dL 14.2 Hct (36.0-46.0) % 41.2 MCV (80-95) fL 93 MCH (27.0-33.0) pg 32.1 MCHC (32.0-36.0) % 34.5 RDW (11.7-14.6) % 13.8 Plt Count (130-400) 10^3/uL 234 MPV (8.0-11.0) fL 9.2 Immature Gran % % 0.4 Neutrophils % % 86.5 Lymphocytes % % 7.5 Monocytes % % 5.2 Eosinophils % % 0.1 Basophils % % 0.3 Nucleated RBC % (0.0-0.3) % 0.0 Absolute Neutrophils (1.2-6.7) 10^3/uL 10.18 H Absolute Lymphocytes (1.2-3.4) 10^3/uL 0.88 L Absolute Monocytes (0.1-0.8) 10^3/uL 0.61 Absolute Eosinophils (0.0-0.7) 10^3/uL 0.01 Absolute Basophils (0.0-0.2) 10^3/uL 0.04 VBG pH (7.31-7.41) 7.40 VBG pCO2 (41-51) mmHg 40 L VBG pO2 mmHg 32 VBG HCO3 (23-28) mmol/L 24 VBG Total CO2 (24-29) mmol/L 22 L VBG O2 Saturation % 62 VBG Base Excess (-2-3) mmol/L 0 Sodium (136-145) mmol/L 139 Potassium (3.5-5.1) mmol/L 4.1 Chloride (98-107) mmol/L 103 Carbon Dioxide (21.0-32.0) mmol/L 25.6 Anion Gap (3-11) mmol/L 10.4 BUN (7-18) mg/dL 7 Creatinine (0.55-1.02) mg/dL 1.0 Est GFR (CKD-EPI 2020) (mL/min/1.73m2) 71.24 Glucose (74-106) mg/dL 96 Calcium (8.5-10.1) mg/dL 8.7 Total Bilirubin (0.2-1.0) mg/dL 0.52 AST (15-37) U/L 14 L ALT (14-59) U/L 42 Alkaline Phosphatase (46-116) U/L 59 Total Protein (6.4-8.2) g/dL 7.4 Albumin (3.4-5.0) g/dL 3.8 Beta HCG, Quant (1-3) mIU/mL 1 COVID-19 Source Nasopharynx SARS-CoV-2 (PCR) (Negative) Negative Influenza Type A (PCR) (Negative) Positive A Influenza Type B (PCR) (Negative) Negative RSV (PCR) (Negative) Negative Quality:SDOH Health Related Social Needs: No Data to Display PFSH All Active Problems (Updated 04/28/24 @ 19:23 by Nadya Goodson MD) Influenza A (Acute) Asthma (Chronic) Pain in right ankle (Acute) Cervical spondylosis without myelopathy (Acute) Concussion without loss of consciousness, sequela (Acute) Nodular thyroid disease (Acute) Posttraumatic stress disorder (Acute) Syncope and collapse (Acute) Migraine headache (Chronic) Neck pain (Acute) Neck pain, acute (Acute) Medical History Syncope Asthma, mild intermittent, well-controlled Cholelithiasis History of pineal cyst Headache Biceps tendinitis of right shoulder Cystic acne Left shoulder pain Mood disorder due to known physiological condition with depressive features Upper respiratory infection, acute Acute back pain Left knee pain Great toe pain Cellulitis Dysuria Flank pain Cough Shortness of breath Sinusitis Social History Smoking/Tobacco Use Status: Current every day Smoking risk assessment performed?: Yes Alcohol Intake: current Alcohol Intake frequency: a few times a month Drug use: Never Substance use type: does not use Housing: house Do you feel safe in your relationship?: Yes
[2024-04-28 16:30] LABS: BE (Venous) 0 mmol/L (-2-3); HCO3 (Venous) 24 mmol/L (23-28); O2 Sat (Venous) 62 %; TCO2 (Venous) 22 mmol/L (24-29); pCO2 (Venous) 40 mmHg (41-51); pO2 (Venous) 32 mmHg
[2024-04-28] MEDS: methylPREDNISolone SUCC 125 MG VIAL IVP (16:33)
[2024-04-28 16:35] LABS: Abs Immature Grans 0.05 10^3/uL (0.0-0.06); Absolute Basophil Count 0.04 10^3/uL (0.0-0.2); Absolute Eosinophil Count 0.01 10^3/uL (0.0-0.7); Absolute Lymphocyte Count 0.88 10^3/uL (1.2-3.4); Absolute Monocyte Count 0.61 10^3/uL (0.1-0.8); Absolute Neutrophil Count 10.18 10^3/uL (1.2-6.7); Basophils % 0.3 %; Eosinophils % 0.1 %; HCT 41.2 % (36.0-46.0); HGB 14.2 g/dL (11.2-15.7); Immature Grans % 0.4 %; Lymphocytes % 7.5 %; MCH 32.1 pg (27.0-33.0); MCHC 34.5 % (32.0-36.0); MCV 93 fL (80-95); MPV 9.2 fL (8.0-11.0); Monocytes % 5.2 %; Neutrophils % 86.5 %; Platelet Count 234 10^3/uL (130-400); RBC 4.42 10^6/uL (3.93-5.22); RDW 13.8 % (11.7-14.6); WBC 11.77 10^3/uL (4.4-10.8)
[2024-04-28] MEDS: ALBUTEROL 15 MG, SODIUM CHLORIDE 0.9% FOR INH. 3 ML UPD (16:35)
[2024-04-28 16:36] VITALS: PULSE 95; RESP 5; O2SAT 96
[2024-04-28 16:37] VITALS: BP 98/59; PULSE 91; RESP 22; TEMP 37.9; O2SAT 100
[2024-04-28 16:56] VITALS: BP 98/59; PULSE 107; O2SAT 99
[2024-04-28 16:57] LABS: ALT 42 U/L (14-59); AST 14 U/L (15-37); Albumin 3.8 g/dL (3.4-5.0); Alkaline Phosphatase 59 U/L (46-116); Anion Gap 10.4 mmol/L (3-11); BUN 7 mg/dL (7-18); Bilirubin, Total 0.52 mg/dL (0.2-1.0); CO2 25.6 mmol/L (21.0-32.0); Calcium 8.7 mg/dL (8.5-10.1); Chloride 103 mmol/L (98-107); Estimated GFR 71.24 (mL/min/1.73m2); Glucose 96 mg/dL (74-106); HCG Quant, Pregnancy 1 mIU/mL (1-3); Potassium 4.1 mmol/L (3.5-5.1); Sodium 139 mmol/L (136-145); Total Protein 7.4 g/dL (6.4-8.2)
[2024-04-28 17:07] LABS: COVID-19 PCR Negative (Negative); Influenza A PCR Positive (Negative); Influenza B PCR Negative (Negative); RSV PCR Negative (Negative)
[2024-04-28 17:12] LABS: Source Nasopharynx
[2024-04-28 19:15] VITALS: BP 125/53; PULSE 100; RESP 18; O2SAT 96
[2024-04-28 19:25] VITALS: BP 125/53; PULSE 100; RESP 18; O2SAT 96
== END 2024-04-28 19:25 | disposition home or self-care (01) ==
PROVIDERS: Emergency Provider Student in an Organized Health Care Education/Training Program; PCP Family Medicine
DX: J45.909 Unspecified asthma, uncomplicated (principal); J10.1 Influenza due to other identified influenza virus with other respiratory manifestations; R05.9 Cough, unspecified; R06.02 Shortness of breath
CPT/HCPCS: 36415; 80053; 82805; 87637; 96374; 99284; 71046; 84702; 85025; 94640; J2919; J7613

== ENCOUNTER 2024-08-01 12:53 | Outpatient (CLI) | payer MEDICAID, SELFPAY | END 2024-08-01 12:54 | disposition home or self-care (01) | PROVIDERS: PCP Family Medicine; Visit Provider Nurse Practitioner Family | DX: R42 Dizziness and giddiness (principal) | CPT/HCPCS: 93246 ==

== ENCOUNTER 2024-08-28 07:13 | Outpatient (CLI) | payer MEDICAID, SELFPAY ==
--- NOTE | 2024-08-28 08:37 | W.CARDEVENT ---
Date of service: 08/28/24 Time of Service: 08:37 Cardiac Event Recorder Referring Provider:: Jose Stafford Indications:: Dizziness Cardiac Event Note: This is a cardiac event monitor. Patient was monitored for 8 days and 19 hours. Rhythm throughout was sinus with average heart rate of 82. Minimum was 55, maximum 138. There were very rare isolated atrial and ventricular beats. There was no atrial fibrillation, no high-grade AV block, no pauses greater than 3 seconds. Reported symptoms correlated to sinus rhythm
== END 2024-08-28 07:14 | disposition home or self-care (01) ==
LOC: CARDOPNVT 07:13
PROVIDERS: PCP Family Medicine; Visit Provider Internal Medicine Cardiovascular Disease
DX: R42 Dizziness and giddiness (principal); R55 Syncope and collapse
CPT/HCPCS: 93248

== ENCOUNTER 2025-01-07 17:10 | Outpatient (REF) | payer MEDICAID, SELFPAY ==
[2025-01-07 21:20] LABS: Anion Gap 9.8 mmol/L (3-11); BUN 13 mg/dL (7-18); C-Reactive Protein 0.65 mg/dL (<or=0.5); CO2 29.2 mmol/L (21.0-32.0); Calcium 9.2 mg/dL (8.5-10.1); Chloride 103 mmol/L (98-107); Estimated GFR 80.34 (mL/min/1.73m2); Glucose 99 mg/dL (74-106); Potassium 4.1 mmol/L (3.5-5.1); Sodium 142 mmol/L (136-145); TSH 1.15 uIU/mL (0.36-3.74)
[2025-01-07 22:20] LABS: Vitamin D 25 Total 26 ng/mL (30-100)
== END 2025-01-07 17:11 | disposition home or self-care (01) ==
LOC: NCHCN 17:10
PROVIDERS: PCP Family Medicine; Visit Provider Family Medicine
DX: M79.89 Other specified soft tissue disorders (principal); M79.641 Pain in right hand; M79.642 Pain in left hand
CPT/HCPCS: 80048; 82164; 82306; 86200; 84439; 84443; 86038; 86140; 86376; 86431

== ENCOUNTER 2025-01-27 17:15 | Outpatient (REF) | payer MEDICAID, SELFPAY ==
[2025-01-29 11:32] LABS: RNP Ab, IgG <6.0 CU (<20.0); Ro60 Ab, IgG <7.0 CU (<20.0); SS-A/Ro, IgG <2.3 CU (<20.0); SS-B (La) Ab, IgG <3.3 CU (<20.0)
[2025-01-30 16:03] LABS: Scl 70 Antibodies, IgG <0.2 U; Sm (Smith) Ab, IgG <0.2 U
== END 2025-01-27 17:16 | disposition home or self-care (01) ==
LOC: NCHCN 17:15
PROVIDERS: PCP Family Medicine; Visit Provider Family Medicine
DX: R76.89 Other specified abnormal immunological findings in serum (principal)
CPT/HCPCS: 86160; 86225; 86235